=== PATIENT | female | born 1935 | race Caucasian/White ===

== ENCOUNTER 2021-04-22 10:02 | Observation (INO) ==
[2021-04-22 10:10] VITALS: BMI 13.2
--- NOTE | 2021-04-22 11:03 | DR.GENAD ---
HPI Time Seen Time Seen by Provider: 04/22/21 10:59 PCP Primary Care Physician: GABRIELA WALTON , Complaint/Symptoms Chief Complaint Doctors Comments: 85 y/o female brought in for evaluation. Fell last week and fractured her left shoulder. Having decreased po intake, becoming more weak and drowsy. Has been taking hydrocodone, was written for tramadol yes terday. Pt states she feels "lousy". Denies headache, chest or abdominal pain, nausea, vomiting. States she has been moving her bowels and bladder ok. Admits to not drinking much fluids.No report of fever, chills, cough, dyspnea. Denies head injury, headache or neck pain. Has been having left thigh pain, worse with standing. Was seen at ortho clinic yesterday for f/u. Chief Complaint:: PTS FAMILY REPORTS HER HAVING A FALL AND FX HER LEFT SHOULDER LAST WEEK , ( SLING NOTED ) PT IS NOT A SURGICAL CANIDATE EXPRESSED BY THE [facility], PTS DAUGHTER IN LAW STATES " HE HAS NOT BEEN EATING OR DRINKING AND WE THINK SHES DEHYDRATED , ,PT APPERS TO BE DROWSY AND FAIL ) ,, BR Self Treatment fo Chief Complaint: NORCO THIS AM COVID-19 Coronavirus risk:travel/contact w/high risk person: No Has patient experienced Coronavirus symptoms: No Nurses notes reviewed Nurses Notes Review: Yes Source History Provided: Patient and Family Member Mode of Arrival Mode of Arrival: Wheelchair Timing Onset of Chief Complaint: 04/18/21 Came on: Gradually PMH PMH Past Medical History: No Past Surgical History: No Past Surgical History Comment: CONEA Family History History of Family Medical Conditions: Yes Family Medical History: Diabetes Mellitus Family Medical History Comment: CVA, Social History Does patient currently use any type of tobacco product: No Have you used tobacco products in the last 12 months: No Type of Tobacco Use: None Does any household member use tobacco: No Alcohol Use: None Do you use any recreational Drugs:: No Lives With: Family Lives Where: Home Infectious screening In the last 2 months have you had wt loss of >10#?: NO Have you had fever, night sweats or hemotysis?: No Have you traveled outside the country in the last 6 months?: No Isolation: Standard ROS Review of Systems Constitutional: Malaise and Weakness Eyes: No Symptoms Reported ENTM: No Symptoms Reported Respiratoy: No Symptoms Reported Cardiovascular: No Symptoms Reported Gastrointestinal/Abdominal: No Symptoms Reported Genitourinary: No Symptoms Reported Neurological: Weakness Musculoskeletal: Left, Shoulder and Leg Integumentary: No Symptoms Reported Hematologic/Lymphatic: No Symptoms Reported Psychiatric: No Symptoms Reported All Other Systems: Reviewed and Negative PE Vital Signs Vitals: Temperature 96.1 F Pulse Rate 99 Respiratory Rate 22 Blood Pressure 171/73 O2 Sat by Pulse Oximetry 99 General Limitations: No Limitations General Appearance: Alert and In No Apparent Distress Head Head Exam: Atraumatic and Normocephalic Eyes Eye exam: Normal Appearance, PERRL and EOMI ENT ENT Exam: Mucous Membranes Moist Neck Neck Exam: Normal Inspection Respiratory Respiratory Exam: Normal Lung Sounds Bilat; negative Accessory Muscle Use and Respiratory Distress Respiratory Exam: Bilateral: Clear to Auscultation Cardiovascular Cardiovascular Exam: Regular Rate, Normal Rhythm and Normal Heart Sounds Abdominal Exam Abdominal Exam: Normal Inspection, Normal Bowel Sounds and Soft; negative Tenderness Extremities Extremities Exam: Other (+ pain of left shoulder, proximal humerus, with ecchymosis. + pain with ROM of left thigh/hip, worse with ROM.); negative Edema Neurologic Neurological Exam: Alert, Oriented X3 and CN II-XII Intact; negative Motor Sensory Deficit Psychiatric Psychiatric Exam: Normal Affect Skin Skin Exam: Warm and Dry MDM Differential Diagnosis Differential Diagnosis: dehydration, electrolyte abnormalities, medicatin reaction. COURSE Treatment Treatment: 85 y/o presents with increasing weakness, decreased po intake, after falling and fracturing her left shoulder last week. Has been on hydrocodone. W/u initiated. Given IV fluids. 1417 - labs, urine overall acceptable. No signs of dehydration on labs, SG normal. RN's helped pt to bedside commode. Pt very weak, needs assistance. Having pain of left thigh region. X-ray obtained of pelvis/left thigh. + fracture of left hip, subcapital region...! Was planning on observation admission for her weakness, discussed with Dr Lyles (covering as hospitalist), accepted the admission here. He will transfer to a facility with ortho capability for L hip repair, since we don't have ortho here. Family asked as to a good orthopedist. Recommended Dr Blue. He will consult at [facility] after transfer. ROR Labs Reviewed Laboratory Results Reviewed?: Yes Result Diagrams: 04/22/21 11:21 04/22/21 11:21 Laboratory: WBC 10.8 X10^3/uL (3.6-10.0) H 04/22/21 11:21 RBC 3.96 X10^6/uL (3.5-5.4) 04/22/21 11:21 Hgb 12.6 g/dL (12.0-16.0) 04/22/21 11:21 Hct 36.4 % (36.0-47.0) 04/22/21 11:21 MCV 91.9 fL (80.0-100.0) 04/22/21 11:21 MCH 31.8 pg (27.0-34.0) 04/22/21 11:21 MCHC 34.6 g/dL (33.0-35.0) 04/22/21 11:21 RDW 13.8 % (11.6-16.5) 04/22/21 11:21 Plt Count 328 X10^3/uL (150.0-450.0) 04/22/21 11:21 MPV 8.8 fL (7.4-11.0) 04/22/21 11:21 Neut % (Auto) 83.6 % (42.0-75.0) H 04/22/21 11:21 Lymph % (Auto) 8.2 % (21.0-51.0) L 04/22/21 11:21 [place] % (Auto) 7.4 % (0.0-13.0) 04/22/21 11:21 Eos % (Auto) 0.3 % (0.9-2.9) L 04/22/21 11:21 Baso % (Auto) 0.5 % (0.2-1.0) 04/22/21 11:21 Neut # (Auto) 9.0 x10^3/uL (2.2-4.8) H 04/22/21 11:21 Lymph # (Auto) 0.9 X10^3/uL (1.3-2.9) L 04/22/21 11:21 [place] # (Auto) 0.8 x10^3/uL (0.3-0.8) 04/22/21 11:21 Eos # (Auto) 0.0 x10^3/uL (0.0-0.2) 04/22/21 11:21 Baso # (Auto) 0.1 X10^3/uL (0.0-0.1) 04/22/21 11:21 Absolute Nucleated RBC 0.0 /100WBC 04/22/21 11:21 Sodium 140 mmol/L (136-145) 04/22/21 11:21 Corrected Sodium 140 mmol/L (136-145) 04/22/21 11:21 Potassium 4.2 mmol/L (3.5-5.1) 04/22/21 11:21 Chloride 105 mmol/L (98-107) 04/22/21 11:21 Carbon Dioxide 25.5 mmol/L (21-32) 04/22/21 11:21 BUN 46 mg/dL (7-18) H 04/22/21 11:21 Creatinine 0.98 mg/dL (0.55-1.02) 04/22/21 11:21 Est GFR (MDRD) Af Amer > 60 (>60) 04/22/21 11:21 Est GFR (MDRD) Non-Af 57 (>60) L 04/22/21 11:21 Glucose 120 mg/dL (65-99) H 04/22/21 11:21 Calcium 8.4 mg/dL (8.5-10.1) L 04/22/21 11:21 Corrected Calcium 9.4 mg/dL (8.5-10.1) 04/22/21 11:21 Total Bilirubin 0.60 mg/dL (0.2-1.0) 04/22/21 11:21 AST 36 Units/L (15-37) 04/22/21 11:21 ALT 36 Units/L (12-78) 04/22/21 11:21 Alkaline Phosphatase 70 Units/L (46-116) 04/22/21 11:21 Total Protein 6.2 g/dL (6.4-8.2) L 04/22/21 11:21 Albumin 2.7 g/dL (3.4-5.0) L 04/22/21 11:21 Globulin 3.5 g/dL (2.5-4.5) 04/22/21 11:21 Albumin/Globulin Ratio 0.8 Ratio (1.1-2.1) L 04/22/21 11:21 Lipase 126 Units/L (73-393) 04/22/21 11:21 Specimen Type Catherized urine 04/22/21 13:13 Urine Color Yellow (YELLOW) 04/22/21 13:13 Urine Appearance Clear (CLEAR) 04/22/21 13:13 Urine pH 5.0 (5.0 - 8.0) 04/22/21 13:13 Ur Specific [place] 1.015 (1.000-1.030) 04/22/21 13:13 Urine Protein 2+ (NEGATIVE) 04/22/21 13:13 Urine Glucose (UA) Negative (NEGATIVE) 04/22/21 13:13 Urine Ketones 1+ (NEGATIVE) 04/22/21 13:13 Urine Occult Blood 1+ (NEGATIVE) 04/22/21 13:13 Urine Nitrite Negative (NEGATIVE) 04/22/21 13:13 Urine Bilirubin Negative (NEGATIVE) 04/22/21 13:13 Urine Urobilinogen Normal (NORMAL) 04/22/21 13:13 Ur Leukocyte Esterase Negative (NEGATIVE) 04/22/21 13:13 Urine RBC 3-5 /HPF (0-3) A 04/22/21 13:13 Urine WBC 0-2 /HPF (0-5) 04/22/21 13:13 Ur Squamous Epith Cells Rare /HPF (NEGATIVE) 04/22/21 13:13 Urine Bacteria Trace /HPF (NEGATIVE) 04/22/21 13:13 Ur Culture Indicated? No/not indicated 04/22/21 13:13 SARS CoV-2 RNA Rapid CAROLYN Negative (NEGATIVE) 04/22/21 14:43 Other Results Comments: Labs overall acceptable. XRAY XRAY Interpreted by: Both X-ray Results: + fracture of left hip, subcaptal region, with degree of displacement. Opioid Opioid Risk Tool Total: 0 Total Score Risk Category: Low Risk Copyright: Loy ESQUIVEL predicting aberrant behaviors Diagnosis Discharge Problem: Generalized weakness Closed fracture of left hip Qualifiers: Encounter type: initial encounter Qualified Code(s): S72.002A - Fracture of unspecified part of neck of left femur, initial encounter for closed fracture
[2021-04-22] MEDS ORDERED: NS 500 ML IV 500 ML IV ONE (11:07)
[2021-04-22] MEDS ORDERED: NS 1,000 ML IV 1,000 ML ONE (11:12)
[2021-04-22 11:28] LABS: BASOPHILS # (AUTO) 0.1 X10^3/uL (0.0-0.1); BASOPHILS % (AUTO) 0.5 % (0.2-1.0); EOSINOPHILS % (AUTO) 0.3 % (0.9-2.9); HEMATOCRIT 36.4 % (36.0-47.0); HEMOGLOBIN 12.6 g/dL (12.0-16.0); LYMPHOCYTES # (AUTO) 0.9 X10^3/uL (1.3-2.9); LYMPHOCYTES % (AUTO) 8.2 % (21.0-51.0); MEAN CORPUSCULAR HEMOGLOBIN 31.8 pg (27.0-34.0); MEAN CORPUSCULAR HGB CONC 34.6 g/dL (33.0-35.0); MEAN CORPUSCULAR VOLUME 91.9 fL (80.0-100.0); MEAN PLATELET VOLUME 8.8 fL (7.4-11.0); MONOCYTES # (AUTO) 0.8 x10^3/uL (0.3-0.8); MONOCYTES % (AUTO) 7.4 % (0.0-13.0); NEUTROPHILS % (AUTO) 83.6 % (42.0-75.0); RED BLOOD COUNT 3.96 X10^6/uL (3.5-5.4); RED CELL DISTRIBUTION WIDTH 13.8 % (11.6-16.5); WHITE BLOOD COUNT 10.8 X10^3/uL (3.6-10.0)
[2021-04-22 12:03] LABS: ALANINE AMINOTRANSFERASE 36 Units/L (12-78); ALBUMIN 2.7 g/dL (3.4-5.0); ALKALINE PHOSPHATASE 70 Units/L (46-116); ASPARTATE AMINO TRANSFERASE 36 Units/L (15-37); BLOOD UREA NITROGEN 46 mg/dL (7-18); CALCIUM 8.4 mg/dL (8.5-10.1); CARBON DIOXIDE 25.5 mmol/L (21-32); CHLORIDE 105 mmol/L (98-107); COR CA(FOR HYPOALB) 9.4 mg/dL (8.5-10.1); COR NA(FOR HYPERGLY) 140 mmol/L (136-145); CREATININE 0.98 mg/dL (0.55-1.02); LIPASE 126 Units/L (73-393); SODIUM 140 mmol/L (136-145); TOTAL PROTEIN 6.2 g/dL (6.4-8.2); eGFR NON BLACK RACES 57 (>60)
[2021-04-22 13:26] LABS: BILIRUBIN,URINE NEGATIVE (NEGATIVE); BLOOD/HEMOGLOBIN,URINE 1+ (NEGATIVE); GLUCOSE, URINE NEGATIVE (NEGATIVE); KETONES,URINE 1+ (NEGATIVE); LEUKOCYTE ESTERASE ,URINE NEGATIVE (NEGATIVE); NITRITES,URINE NEGATIVE (NEGATIVE); PROTEIN,URINE 2+ (NEGATIVE); UROBILINOGEN,URINE NORMAL (NORMAL)
[2021-04-22 13:31] LABS: APPEARANCE,URINE CLEAR (CLEAR); BACTERIA,URINE TRACE /HPF (NEGATIVE); COLOR,URINE YELLOW (YELLOW); SQUAMOUS EPITHELIAL CELL,UR RARE /HPF (NEGATIVE)
[2021-04-22] MEDS ORDERED: APRESOLINE INJ 20 MG VIAL IVP ONE (14:31)
[2021-04-22] MEDS ORDERED: APRESOLINE INJ 20 MG VIAL ONE (14:39)
--- NOTE | 2021-04-22 14:57 | RAD ---
HISTORYFall, left hip painSTUDYAP pelvisCOMPARISONNoneFINDINGSThe bones are osteopenic. The pelvic bones and SI joints are intact. The left hip joint is intact. No joint erosions are noted. There is a complete subcapital fracture of the left femoral neck with cephalad displacement of the distal fracture fragment.IMPRESSIONComplete subcapital fracture of the left femoral neck with cephalad displacement of the distal fracture fragmentOsteopeniaElectronically signed by: CARLY SINGH (Apr 22, 2021 14:56:21)
--- NOTE | 2021-04-22 14:57 | RAD ---
HISTORYFall, left hip painSTUDYLeft femur two viewsCOMPARISONNoneFINDINGSThere is a complete subcapital fracture of the left femoral neck with cephalad displacement of the distal fracture fragment. The remainder of the femur is intact.IMPRESSIONComplete subcapital fracture left femoral neckElectronically signed by: CARLY SINGH (Apr 22, 2021 14:57:03)
[2021-04-22] MEDS ORDERED: MORPHINE SULFATE INJ 4 MG IVP ONE ×2 (15:21)
[2021-04-22] MEDS ORDERED: MORPHINE SULFATE INJ 4 MG ONE (15:22)
[2021-04-22 17:30] VITALS: BP 137/73
--- NOTE | 2021-04-23 20:42 | DR.H&P ---
<Alissa Royal - Last Filed: 04/23/21 20:37> H&P - History & Physical for Day of: H&P Date: 04/22/21 - Chief Complaint Chief Complaint: Fall - Allergies Allergies/Adverse Reactions: Allergies Allergy/AdvReac Type Severity Reaction Status Date / Time No Known Drug Allergies Allergy Verified 04/22/21 14:58 - History of Present Illness History of Present Illness: Patient is a 85 year old female who is being admitted due to pelvis fracture. Patient brought in by family. Patient alert and oriented but drowsy. Patient fell this past Wednesday and was seen in ER in [place]; diagnosed with broken humerus and followed up with ortho in [place] outpatient earlier this week (not a surgical candidate). Daughter and patiet report patient has not een able to ambulate well since fall. Patient has also not been eating and drinking well and is more drowsy than normal. PMH dementia. Past srugical history corneal surg x 2. No other cocerns at present. - Past Medical History Past Medical History: Dementia - Past Surgical History Additional Surgical History: corneal x 2 - Family History Family Medical History: Diabetes Mellitus - Social History Does patient currently use any type of tobacco product: No Have you used tobacco products in the last 12 months: No Type of Tobacco Use: None Does any household member use tobacco: No Alcohol Use: None Drug Use: None - Medications Home Medications: No Known Drug Allergies Allergy (Verified 04/22/21 14:58) CONTINUE taking the following medications alprazolam 0.25 mg PO BID 04/22/21 [History] hydrocodone-acetaminophen 1 tab PO QID PRN 04/22/21 [History] - Review of Systems Constitutional: See HPI Eyes: See HPI ENT: See HPI Respiratory: See HPI Cardiovascular: See HPI Gastrointestinal: See HPI Genitourinary: See HPI Musculoskeletal: See HPI Skin: See HPI Neurological: See HPI - Physical Exam Vital Signs: Temperature 96.1 F Pulse Rate 102 Respiratory Rate 22 Blood Pressure 137/73 O2 Sat by Pulse Oximetry 98 Oriented: Normal, Time, Person, Place Eyes: Normal Ear: Normal Nose: Normal Throat: Normal Respiratory: Clear Throughout Cardiovascular: Normal : Normal Auscultation: Bowel Sounds: Normal Palpation: Normal Tenderness: Normal Skin: Normal Musculoskeletal: Left, Arm, Leg, Tender (Left humerus fracture-sling noted. Left hip/thigh tenderness) Psychiatric: Normal Mood Description: Flat, Withdrawn Affect: Flat Speech Pattern: Clear, Appropriate - Assessment/Plan (1) Dehydration Status: Acute (2) Closed fracture of left hip Qualifiers: Encounter type: initial encounter Qualified Code(s): S72.002A - Fracture of unspecified part of neck of left femur, initial encounter for closed fracture Status: Acute Plan: Admit. IV fluids. Pain control. See EMR for further orders (3) Generalized weakness Status: Acute <VITOR NELSON - Last Filed: 04/24/21 10:02> H&P - History of Present Illness History of Present Illness: Pt is an 85 y/o WF being admitted for AMS. Pt was found to have a left hip fx by xray immediately after admission. - Medications Home Medications: No Known Drug Allergies Allergy (Verified 04/22/21 14:58) CONTINUE taking the following medications alprazolam 0.25 mg PO BID 04/22/21 [History] hydrocodone-acetaminophen 1 tab PO QID PRN 04/22/21 [History] - Physical Exam Vital Signs: Temperature 96.1 F Pulse Rate 102 Respiratory Rate 22 Blood Pressure 137/73 O2 Sat by Pulse Oximetry 98
--- NOTE | 2021-06-02 00:29 | PCM.DCPLAN ---
Discharge Plan - Discharge Plan Hospital Course: Admit date 04/22/21 Discharge date 04/22/21 DOS 04/22/21 Admit diagnosis (1) Dehydration (2) Closed fracture of left hip (3) Generalized weakness Discharge diagnosis Same Hospital Course Patient is a 85 year old female who is being admitted due to pel vis fracture. Patient brought in by family. Patient alert and oriented but drowsy. Patient fell this past Wednesday and was seen in ER in [place]; diagnosed with broken humerus and followed up with ortho in [place] outpatient earlier this week (not a surgical candidate). Daughter and patient report patient has not been able to ambulate well since fall. Patient has also not been eating and drinking well and is more drowsy than normal. Patient was transferred to tertiary hospital for further ortho eval and intervention if needed. Discharge time > 60 mins Disposition: XF [facility] Condition: Stable Prescriptions: No Action alprazolam [Xanax] 0.25 mg Tablet 0.125 mg PO BID Eliquis 2.5 mg Tablet 2.5 mg PO BID fluconazole [Diflucan] 100 mg Tablet 100 mg PO ONCE Qty: 3 RF: 0 gabapentin 400 mg Capsule 400 mg PO TID hydrocodone-acetaminophen 7.5-325 mg Tablet 1 tab PO Q4H PRN levofloxacin 250 mg Tablet 250 mg PO DAILY lisinopril 10 mg Tablet 10 mg PO DAILY Qty: 30 RF: 0 metoprolol succinate 50 mg Tablet Extended Release 24 Hr 50 mg PO DAILY Qty: 30 RF: 0 - Orders to Discharge Patient Discharge Orders: Discharge by Transfer to Outside Facility (Routine); Ordered 04/22/21 Ordered By: VITOR NELSON - Follow ups/Referrals Follow ups/Referrals: David Alvarez [Primary Care Provider] - 1 WEEK
== END 2021-04-22 17:40 | disposition short-term general hospital (02) ==
LOC: U 10:02 → ER 10:02 → U 17:42
PROVIDERS: ADMIT Internal Medicine; ATTEND Internal Medicine
DX: E86.0 Dehydration; R53.1 Weakness; W18.39XA Other fall on same level, initial encounter; L89.152 Pressure ulcer of sacral region, stage 2; Z20.822 Contact with and (suspected) exposure to COVID-19; S42.92XA Fracture of left shoulder girdle, part unspecified, initial encounter for closed fracture; S72.012A Unspecified intracapsular fracture of left femur, initial encounter for closed fracture

== ENCOUNTER 2021-05-02 07:30 | Inpatient (IN) ==
[2021-05-02] MEDS ORDERED: TYLENOL SUPP 650 MG PR ONE (07:43)
[2021-05-02] MEDS ORDERED: NS 500 ML IV 500 ML IV ONE ×2 (07:44→07:51)
[2021-05-02] MEDS ORDERED: OFIRMEV IV 1000 MG VIAL 1,000 MG/100 ML VIAL IV ONE ×2 (07:51→07:54)
--- NOTE | 2021-05-02 08:06 | RAD ---
HISTORYFever, shortness of breathSTUDYChest AP [id number]/2022FINDINGSHear t size is normal. Nataly are normal. Aorta is calcified. Lung kirby are clear. There is a suggestion of a small left pleural effusion present. Bony thorax is unremarkable with the exception of osteopenia and an impacted fracture of the left humeral neck of uncertain age.IMPRESSIONNo acute infiltratesSuspect small left pleural effusionComminuted impacted fracture of the left humeral neck of uncertain age.Electronically signed by: CARLY SINGH (May 02, 2021 08:05:08)
[2021-05-02 08:09] LABS: LYMPHOCYTES # (AUTO) 0.3 X10^3/uL (1.3-2.9); MEAN PLATELET VOLUME 7.4 fL (7.4-11.0); MONOCYTES # (AUTO) 0.1 x10^3/uL (0.3-0.8)
--- NOTE | 2021-05-02 08:13 | DR.GENAD ---
HPI Time Seen Time Seen by Provider: 05/02/21 07:43 PCP Primary Care Physician: EUSEBIA Complaint/Symptoms Chief Complaint Doctors Comments: PATIENT WAS SENT OVER FROM [place] WITH HYPOXIA AND FEVER AND RECENT START ON MEDICATIONS FOR UTI. Chief Complaint:: HYPOXIA COVID-19 Coronavirus risk:travel/contact w/high risk person: No Has patient experienced Coronavirus symptoms: No Source History Provided: Senior Living Mode of Arrival Mode of Arrival: Stretcher Timing Onset of Chief Complaint: 05/02/21 PMH PMH Past Medical History: Yes Past Medical History: Anxiety, Dementia and Hypertension Past Surgical History: No Surgical History: Ortho Surgery Past Surgical History Comment: FX LEFT FEMUR Family History History of Family Medical Conditions: Yes Family Medical History: Diabetes Mellitus Social History Does patient currently use any type of tobacco product: No Have you used tobacco products in the last 12 months: No Type of Tobacco Use: None Does any household member use tobacco: No Alcohol Use: None Do you use any recreational Drugs:: No Lives With: Other Lives Where: Senior Living Travel Risk Coronavirus risk:travel/contact w/high risk person: No Has patient experienced Coronavirus symptoms: No Infectious screening In the last 2 months have you had wt loss of >10#?: NO Have you had fever, night sweats or hemotysis?: No Have you traveled outside the country in the last 6 months?: No Isolation: Standard ROS Review of Systems Constitutional: Chills and Weakness Eyes: No Symptoms Reported ENTM: No Symptoms Reported Respiratoy: Short of Breath Cardiovascular: No Symptoms Reported Gastrointestinal/Abdominal: No Symptoms Reported Genitourinary: Frequency Neurological: Weakness Musculoskeletal: No Symptoms Reported Integumentary: No Symptoms Reported Hematologic/Lymphatic: No Symptoms Reported Endocrine: No Symptoms Reported Psychiatric: No Symptoms Reported All Other Systems: Reviewed and Negative PE Vital Signs Vitals: Temperature 99.6 F Pulse Rate 107 Respiratory Rate 30 Blood Pressure 92/54 O2 Sat by Pulse Oximetry 100 General General Appearance: In No Apparent Distress and Lethargic Head Head Exam: Normal Inspection Eyes Eye exam: Normal Appearance ENT ENT Exam: Normal Exam External Ear Exam: Normal External Inspection TM/Canal Exam: Bilateral: Normal Nose Exam: Normal Nose Exam Mouth Exam: Normal Inspection Throat Exam: Normal Inspection Neck Neck Exam: Normal Inspection Chest Chest Inspection: Normal Inspection Respiratory Respiratory Exam: Normal Lung Sounds Bilat Respiratory Exam: Bilateral: Clear to Auscultation Cardiovascular Cardiovascular Exam: Normal Rhythm and Tachycardia Abdominal Exam Abdominal Exam: Normal Inspection, Normal Bowel Sounds and Soft Extremities Extremities Exam: Normal Inspection Back Back Exam: Normal Inspection Neurologic Neurological Exam: Alert and Oriented X3 Psychiatric Psychiatric Exam: Normal Affect and Normal Mood Skin Skin Exam: Warm, Dry, Intact and Normal Color MDM Additional Information Findings: HYPOXIA,CHILLS,FEVER Differential Diagnosis Differential Diagnosis: UTI,SEPSIS,VIRAL URTI COURSE Treatment Treatment: PATIENT REQUIRED 1.5 LITERS OF NACL IN ER TO MAINTAIN A BP SYSTOLIC OF 90 AND ABOVE. PATIENT WAS GIVN ROCEPHINE 1 GRAM IN ER FOR UTI AND SEPSIS. LACTIC ACID WAS ELEVATED AND CARDIAC ENZYMES WERE ELEVATED. PATIENT'S PCP DR DURAN WAS CALLED AND HE STATED TO ADMIT PATIENT TO HOSPITAL AND HE WOULD CONTINUE TREATMENT FOR SEPSIS AND ELEVATED CARDIAC ENZYMES. THE PATIENT'S FAMILY WERE NOTIFIED OF THE INTENT AND WERE AGGREABLE TO THE PLAN. SHE IS A DNR AND WILL BE ADMITTED TO ICU FOR FURTHER TREATMENT AND EVALUATION. ROR Labs Reviewed Laboratory Results Reviewed?: Yes (LACTIC ACID WAS 4.6) Result Diagrams: 05/02/21 08:00 05/02/21 08:00 Laboratory: WBC 6.1 X10^3/uL (3.6-10.0) D 05/02/21 08:00 RBC 3.12 X10^6/uL (3.5-5.4) L 05/02/21 08:00 Hgb 10.0 g/dL (12.0-16.0) L 05/02/21 08:00 Hct 28.8 % (36.0-47.0) L 05/02/21 08:00 MCV 92.4 fL (80.0-100.0) 05/02/21 08:00 MCH 32.0 pg (27.0-34.0) 05/02/21 08:00 MCHC 34.7 g/dL (33.0-35.0) 05/02/21 08:00 RDW 13.9 % (11.6-16.5) 05/02/21 08:00 Plt Count 290 X10^3/uL (150.0-450.0) 05/02/21 08:00 Plt Count Comment Adequate (ADEQUATE) 05/02/21 08:00 MPV 7.4 fL (7.4-11.0) 05/02/21 08:00 Neut % (Auto) 93.2 % (42.0-75.0) H 05/02/21 08:00 Lymph % (Auto) 4.9 % (21.0-51.0) L 05/02/21 08:00 [place] % (Auto) 1.4 % (0.0-13.0) 05/02/21 08:00 Eos % (Auto) 0.3 % (0.9-2.9) L 05/02/21 08:00 Baso % (Auto) 0.2 % (0.2-1.0) 05/02/21 08:00 Neut # (Auto) 5.7 x10^3/uL (2.2-4.8) H 05/02/21 08:00 Lymph # (Auto) 0.3 X10^3/uL (1.3-2.9) L 05/02/21 08:00 [place] # (Auto) 0.1 x10^3/uL (0.3-0.8) L 05/02/21 08:00 Eos # (Auto) 0.0 x10^3/uL (0.0-0.2) 05/02/21 08:00 Baso # (Auto) 0.0 X10^3/uL (0.0-0.1) 05/02/21 08:00 Absolute Nucleated RBC 0.1 /100WBC 05/02/21 08:00 Total Counted 100 05/02/21 08:00 Neutrophils % (Manual) 87 % (39-76) H 05/02/21 08:00 Lymphocytes % (Manual) 9 % (13-43) L 05/02/21 08:00 Monocytes % (Manual) 4 % (4-9) 05/02/21 08:00 Plt Morphology Comment Normal (NORMAL) 05/02/21 08:00 RBC Morphology Normal (NORMAL) 05/02/21 08:00 Sample Site Lr 05/02/21 07:49 ABG pH 7.510 (7.35-7.45) H 05/02/21 07:49 ABG pCO2 32.0 mmHg (35.0-45.0) L 05/02/21 07:49 ABG pO2 51.0 mmHg (80.0-100.0) L 05/02/21 07:49 ABG HCO3 25.5 mmol/L (22-26) 05/02/21 07:49 ABG O2 Saturation 89.0 % (90-100) L 05/02/21 07:49 ABG Base Excess 2.9 mmol/L (-2.0-2.0) H 05/02/21 07:49 Jose Test Pos 05/02/21 07:49 A-a Gradient 59.0 mmHg 05/02/21 07:49 FiO2 21.0 05/02/21 07:49 Blood Gas Comments David well cb 05/02/21 07:49 Sodium 143 mmol/L (136-145) 05/02/21 08:00 Corrected Sodium TNP 05/02/21 08:00 Potassium 4.8 mmol/L (3.5-5.1) 05/02/21 08:00 Chloride 104 mmol/L (98-107) 05/02/21 08:00 Carbon Dioxide 25.7 mmol/L (21-32) 05/02/21 08:00 BUN 41 mg/dL (7-18) H 05/02/21 08:00 Creatinine 1.79 mg/dL (0.55-1.02) H 05/02/21 08:00 Est GFR (MDRD) Af Amer 35 (>60) L 05/02/21 08:00 Est GFR (MDRD) Non-Af 29 (>60) L 05/02/21 08:00 Glucose 109 mg/dL (65-99) H 05/02/21 08:00 Lactic Acid 4.6 mmol/L (0.4-2.0) H 05/02/21 08:00 Calcium 8.6 mg/dL (8.5-10.1) 05/02/21 08:00 Corrected Calcium 9.9 mg/dL (8.5-10.1) 05/02/21 08:00 Total Bilirubin 1.10 mg/dL (0.2-1.0) H 05/02/21 08:00 AST 166 Units/L (15-37) H 05/02/21 08:00 ALT 86 Units/L (12-78) H 05/02/21 08:00 Alkaline Phosphatase 219 Units/L (46-116) H 05/02/21 08:00 Creatine Kinase 125 Units/L (26-192) 05/02/21 08:00 CK-MB (CK-2) 1.1 ng/mL (0-4.0) 05/02/21 08:00 CK/CKMB % Calc 0.9 % (<4) 05/02/21 08:00 Troponin I High Sens 152.9 ng/L (4.0-60.0) H* 05/02/21 08:00 Total Protein 5.7 g/dL (6.4-8.2) L 05/02/21 08:00 Albumin 2.4 g/dL (3.4-5.0) L 05/02/21 08:00 Globulin 3.3 g/dL (2.5-4.5) 05/02/21 08:00 Albumin/Globulin Ratio 0.7 Ratio (1.1-2.1) L 05/02/21 08:00 SARS-CoV-2 (PCR) Negative (NEGATIVE) 05/02/21 08:08 Influenza Type A (PCR) Negative (NEGATIVE) 05/02/21 08:08 Influenza Type B (PCR) Negative (NEGATIVE) 05/02/21 08:08 RSV (PCR) Negative (NEGATIVE) 05/02/21 08:08 XRAY XRAY Interpreted by: Radiologist (CHEST XRAY SHOWED SMALL PLEURAL EFUSION) EKG Rhythm: ST Opioid Opioid Risk Tool Age ([place] box if 16-45): No History of Preadolescent Sexual Abuse: No Total: 0 Total Score Risk Category: Low Risk Copyright: Loy ESQUIVEL predicting aberrant behaviors Diagnosis Discharge Problem: Sepsis associated hypotension, Elevation of cardiac enzymes Urinary tract infection Qualifiers: Qualified Code(s): N39.0 - Urinary tract infection, site not specified
[2021-05-02 08:19] LABS: BASOPHILS % (AUTO) 0.2 % (0.2-1.0); EOSINOPHILS % (AUTO) 0.3 % (0.9-2.9); HEMATOCRIT 28.8 % (36.0-47.0); LYMPHOCYTES % (AUTO) 4.9 % (21.0-51.0); MEAN CORPUSCULAR HGB CONC 34.7 g/dL (33.0-35.0); MEAN CORPUSCULAR VOLUME 92.4 fL (80.0-100.0); MONOCYTES % (AUTO) 1.4 % (0.0-13.0); NEUTROPHILS # (AUTO) 5.7 x10^3/uL (2.2-4.8); NEUTROPHILS % (AUTO) 93.2 % (42.0-75.0); RED BLOOD COUNT 3.12 X10^6/uL (3.5-5.4); RED CELL DISTRIBUTION WIDTH 13.9 % (11.6-16.5); WHITE BLOOD COUNT 6.1 X10^3/uL (3.6-10.0)
[2021-05-02] MEDS ORDERED: ROCEPHIN 1 GRAM IV PREMIX 1 G/50 ML IV.SOLN. IV ONE ×2 (08:19→08:23)
[2021-05-02 08:28] LABS: LACTIC ACID 4.6 mmol/L (0.4-2.0)
[2021-05-02 08:35] LABS: ALANINE AMINOTRANSFERASE 86 Units/L (12-78); ALBUMIN 2.4 g/dL (3.4-5.0); ALKALINE PHOSPHATASE 219 Units/L (46-116); ASPARTATE AMINO TRANSFERASE 166 Units/L (15-37); BLOOD UREA NITROGEN 41 mg/dL (7-18); CALCIUM 8.6 mg/dL (8.5-10.1); CARBON DIOXIDE 25.7 mmol/L (21-32); CHLORIDE 104 mmol/L (98-107); CKMB % 0.9 % (<4); COR CA(FOR HYPOALB) 9.9 mg/dL (8.5-10.1); CREATINE KINASE 125 Units/L (26-192); CREATINE KINASE MB 1.1 ng/mL (0-4.0); CREATININE 1.79 mg/dL (0.55-1.02); SODIUM 143 mmol/L (136-145); TOTAL PROTEIN 5.7 g/dL (6.4-8.2); eGFR NON BLACK RACES 29 (>60)
[2021-05-02 08:51] LABS: ABG ALLEN TEST POS; ABG BASE EXCESS 2.9 mmol/L (-2.0-2.0); ABG HCO3 25.5 mmol/L (22-26)
[2021-05-02 08:57] LABS: PLATELET MORPHOLOGY COMMENT NORMAL (NORMAL)
[2021-05-02] MEDS ORDERED: NS 1,000 ML IV 1,000 ML ONE (09:22)
[2021-05-02] MEDS ORDERED: NS 1,000 ML IV 1,000 ML IV ONE (09:24)
[2021-05-02] MEDS ORDERED: NS 1,000 ML IV 1,000 ML IV SCH (10:00)
[2021-05-02] MEDS ORDERED: TYLENOL 325 MG TAB PO PRN (10:03)
[2021-05-02 12:12] VITALS: BMI 16.5
[2021-05-02] MEDS: NS 1,000 ML IV 1,000 ML IV SCH ×2 (12:27→19:00)
[2021-05-02] MEDS: LEVAQUIN PREMIX IV 250 MG 250 MG/50 ML BAG IV SCH (12:50)
[2021-05-02 14:41] LABS: CKMB % 1.7 % (<4); CREATINE KINASE MB 2.1 ng/mL (0-4.0)
--- NOTE | 2021-05-02 17:30 | DR.H&P ---
H&P History & Physical for Day of: H&P Date: 05/02/21 Chief Complaint Chief Complaint: Hypoxia Allergies Allergies Allergy/AdvReac Type Severity Reaction Status Date / Time No Known Drug Allergies Allergy Verified 04/22/21 14:58 History of Present Illness History of Present Illness: This is an 85 year old white female who is a resident at [facility]. [facility] days ago. I was called about The patient yesterday having a temperature of just over 101 degrees Fahrenheit. She was also having rigors that time. A urinalysis was done showed that the patient had a urinary tract infection. Blood cultures x 2 also drawn as well as a CMP, CBC and a chest x-ray. She was started on PO Augmentin and Doxycycline. The chest x-ray yesterday showed only a small minimal left pleural effusion but no infiltrate. This morning the patient was noted to be hypoxic with a O2 sat at the prison in the low 80s. After this she was sent to the emergency department for further work up. Once in the ER she was put on 2 L Nasal cannula and her O2 sat at time went up to the mid-nineties. The pressure was also found to be dehydrated with a GFR are less than 30. Also seen at that time her troponin was elevated in the 150s. I suspect that her her troponin is actually slightly more elevated than hat it would be given her decreased creatinine clearance. The patient was subsequently admitted to the hospital for IV antibiotics and IV hydration. This patient is a DNR for Family. Past Medical History Past Medical History: Anxiety, Dementia and Hypertension Past Surgical History Surgical History: Ortho Surgery Additional Surgical History: corneal x 2 Family History Family Medical History: Diabetes Mellitus, Cancer and Hypertension Social History Does patient currently use any type of tobacco product: No Have you used tobacco products in the last 12 months: No Type of Tobacco Use: None Does any household member use tobacco: No Alcohol Use: None Drug Use: None Medications Home Medications: No Known Drug Allergies Allergy (Verified 04/22/21 14:58) CONTINUE taking the following medications amoxicillin-pot clavulanate 1 tab PO BID 05/02/21 [History] apixaban [Eliquis] 2.5 mg PO BID 05/02/21 [History] doxycycline hyclate 100 mg PO BID 05/02/21 [History] Labs Result Diagrams: 05/02/21 08:00 05/02/21 08:00 Labs: Laboratory WBC 6.1 X10^3/uL (3.6-10.0) D 05/02/21 08:00 RBC 3.12 X10^6/uL (3.5-5.4) L 05/02/21 08:00 Hgb 10.0 g/dL (12.0-16.0) L 05/02/21 08:00 Hct 28.8 % (36.0-47.0) L 05/02/21 08:00 MCV 92.4 fL (80.0-100.0) 05/02/21 08:00 MCH 32.0 pg (27.0-34.0) 05/02/21 08:00 MCHC 34.7 g/dL (33.0-35.0) 05/02/21 08:00 RDW 13.9 % (11.6-16.5) 05/02/21 08:00 Plt Count 290 X10^3/uL (150.0-450.0) 05/02/21 08:00 Plt Count Comment Adequate (ADEQUATE) 05/02/21 08:00 MPV 7.4 fL (7.4-11.0) 05/02/21 08:00 Neut % (Auto) 93.2 % (42.0-75.0) H 05/02/21 08:00 Lymph % (Auto) 4.9 % (21.0-51.0) L 05/02/21 08:00 [place] % (Auto) 1.4 % (0.0-13.0) 05/02/21 08:00 Eos % (Auto) 0.3 % (0.9-2.9) L 05/02/21 08:00 Baso % (Auto) 0.2 % (0.2-1.0) 05/02/21 08:00 Neut # (Auto) 5.7 x10^3/uL (2.2-4.8) H 05/02/21 08:00 Lymph # (Auto) 0.3 X10^3/uL (1.3-2.9) L 05/02/21 08:00 [place] # (Auto) 0.1 x10^3/uL (0.3-0.8) L 05/02/21 08:00 Eos # (Auto) 0.0 x10^3/uL (0.0-0.2) 05/02/21 08:00 Baso # (Auto) 0.0 X10^3/uL (0.0-0.1) 05/02/21 08:00 Absolute Nucleated RBC 0.1 /100WBC 05/02/21 08:00 Total Counted 100 05/02/21 08:00 Neutrophils % (Manual) 87 % (39-76) H 05/02/21 08:00 Lymphocytes % (Manual) 9 % (13-43) L 05/02/21 08:00 Monocytes % (Manual) 4 % (4-9) 05/02/21 08:00 Plt Morphology Comment Normal (NORMAL) 05/02/21 08:00 RBC Morphology Normal (NORMAL) 05/02/21 08:00 Sample Site Lr 05/02/21 07:49 ABG pH 7.510 (7.35-7.45) H 05/02/21 07:49 ABG pCO2 32.0 mmHg (35.0-45.0) L 05/02/21 07:49 ABG pO2 51.0 mmHg (80.0-100.0) L 05/02/21 07:49 ABG HCO3 25.5 mmol/L (22-26) 05/02/21 07:49 ABG O2 Saturation 89.0 % (90-100) L 05/02/21 07:49 ABG Base Excess 2.9 mmol/L (-2.0-2.0) H 05/02/21 07:49 Jose Test Pos 05/02/21 07:49 A-a Gradient 59.0 mmHg 05/02/21 07:49 FiO2 21.0 05/02/21 07:49 Blood Gas Comments David well cb 05/02/21 07:49 Sodium 143 mmol/L (136-145) 05/02/21 08:00 Corrected Sodium TNP 05/02/21 08:00 Potassium 4.8 mmol/L (3.5-5.1) 05/02/21 08:00 Chloride 104 mmol/L (98-107) 05/02/21 08:00 Carbon Dioxide 25.7 mmol/L (21-32) 05/02/21 08:00 BUN 41 mg/dL (7-18) H 05/02/21 08:00 Creatinine 1.79 mg/dL (0.55-1.02) H 05/02/21 08:00 Est GFR (MDRD) Af Amer 35 (>60) L 05/02/21 08:00 Est GFR (MDRD) Non-Af 29 (>60) L 05/02/21 08:00 Glucose 109 mg/dL (65-99) H 05/02/21 08:00 Lactic Acid 3.0 mmol/L (0.4-2.0) H 05/02/21 11:50 Calcium 8.6 mg/dL (8.5-10.1) 05/02/21 08:00 Corrected Calcium 9.9 mg/dL (8.5-10.1) 05/02/21 08:00 Total Bilirubin 1.10 mg/dL (0.2-1.0) H 05/02/21 08:00 AST 166 Units/L (15-37) H 05/02/21 08:00 ALT 86 Units/L (12-78) H 05/02/21 08:00 Alkaline Phosphatase 219 Units/L (46-116) H 05/02/21 08:00 Creatine Kinase 127 Units/L (26-192) 05/02/21 13:56 CK-MB (CK-2) 2.1 ng/mL (0-4.0) 05/02/21 13:56 CK/CKMB % Calc 1.7 % (<4) 05/02/21 13:56 Troponin I High Sens 153.3 ng/L (4.0-60.0) H* 05/02/21 13:56 Total Protein 5.7 g/dL (6.4-8.2) L 05/02/21 08:00 Albumin 2.4 g/dL (3.4-5.0) L 05/02/21 08:00 Globulin 3.3 g/dL (2.5-4.5) 05/02/21 08:00 Albumin/Globulin Ratio 0.7 Ratio (1.1-2.1) L 05/02/21 08:00 SARS-CoV-2 (PCR) Negative (NEGATIVE) 05/02/21 08:08 Influenza Type A (PCR) Negative (NEGATIVE) 05/02/21 08:08 Influenza Type B (PCR) Negative (NEGATIVE) 05/02/21 08:08 RSV (PCR) Negative (NEGATIVE) 05/02/21 08:08 Review of Systems Constitutional: No Symptoms Reported Eyes: No Symptoms Reported ENT: No Symptoms Reported Respiratory: No Symptoms Reported Cardiovascular: No Symptoms Reported Gastrointestinal: No Symptoms Reported Genitourinary: No Symptoms Reported Musculoskeletal: No Symptoms Reported Skin: No Symptoms Reported Neurological: No Symptoms Reported Physical Exam Vital Signs: Temperature 98.7 F Pulse Rate 97 Respiratory Rate 20 Blood Pressure 101/56 O2 Sat by Pulse Oximetry 96 Oriented: Not Oriented and Unable to test Eyes: Normal Ear: Normal Nose: Normal Respiratory: Clear Throughout Cardiovascular: Normal : Normal Auscultation: Bowel Sounds: Normal Palpation: Normal Tenderness: Normal Skin: Decreased [place] Musculoskeletal: Hip Psychiatric: Other (resting at this time. ) Affect: Quiet Assessment/Plan (1) Closed fracture of left hip: Qualifiers: Encounter type: initial encounter Qualified Code(s): S72.002A - Fracture of unspecified part of neck of left femur, initial encounter for closed fracture Status: Acute (2) Generalized weakness: Status: Acute (3) Dehydration: Status: Acute Plan: Normal saline IV at 100 ml per hour (4) Sepsis associated hypotension: Status: Acute Plan: IV Rocephin one gram IV q 12 hours and Levaquin 250 mg IV daily. The patient is a DNR status. (5) Elevation of cardiac enzymes: Status: Acute Plan: What Check serial cardiac enzymes and EKG's. (6) Urinary tract infection: Qualifiers: Qualified Code(s): N39.0 - Urinary tract infection, site not specified Narrative Support Text: The patient's urinalysis/ culture is growing out greater than 100,000 [place] forming units. The Gram stain shows gram-negative rods. Status: Acute Plan: Intravenous Rocephin and Levaquin. Review H&P Reviewed: Yes Patient was examined?: Yes
[2021-05-02 21:01] LABS: CKMB % 2.5 % (<4); CREATINE KINASE MB 3.6 ng/mL (0-4.0)
[2021-05-02] MEDS: ELIQUIS PO SCH (21:15)
[2021-05-02] MEDS: ROCEPHIN 1 GRAM IV PREMIX 1 G/50 ML IV.SOLN. IV SCH (21:15)
[2021-05-02] MEDS: XANAX PO SCH (21:41)
[2021-05-02] MEDS ORDERED: ROCEPHIN 1 GRAM IV PREMIX 1 G/50 ML IV.SOLN. IV SCH (22:00)
[2021-05-03] MEDS: NS 1,000 ML IV 1,000 ML IV SCH ×4 (01:06→22:03)
--- NOTE | 2021-05-03 06:29 | RAD ---
HISTORYSEPSIS, UTISTUDYCHEST, 1 [id number] AND TUBES: NoneHEART/ PULMONARY VASCULATURE: UnchangedLUNGS/ PLEURA: Slight increase in right basilar airspace opacity with obscuration of right hemidiaphragm. Trace effusions are present bilaterally. No pneumothoraxIMPRESSIONSlight increase in right basilar airspace opacities with trace pleural effusions.Electronically signed by: Edmar Robison (May 03, 2021 06:28:28)
[2021-05-03 06:47] LABS: BASOPHILS % (AUTO) 0.1 % (0.2-1.0); EOSINOPHILS # (AUTO) 0.1 x10^3/uL (0.0-0.2); EOSINOPHILS % (AUTO) 0.4 % (0.9-2.9); HEMATOCRIT 24.6 % (36.0-47.0); HEMOGLOBIN 8.2 g/dL (12.0-16.0); LYMPHOCYTES # (AUTO) 0.9 X10^3/uL (1.3-2.9); LYMPHOCYTES % (AUTO) 2.8 % (21.0-51.0); MEAN CORPUSCULAR HEMOGLOBIN 30.6 pg (27.0-34.0); MEAN CORPUSCULAR HGB CONC 33.2 g/dL (33.0-35.0); MEAN CORPUSCULAR VOLUME 92.2 fL (80.0-100.0); MEAN PLATELET VOLUME 8.5 fL (7.4-11.0); MONOCYTES # (AUTO) 1.2 x10^3/uL (0.3-0.8); MONOCYTES % (AUTO) 3.6 % (0.0-13.0); NEUTROPHILS # (AUTO) 30.8 x10^3/uL (2.2-4.8); NEUTROPHILS % (AUTO) 93.1 % (42.0-75.0); RED BLOOD COUNT 2.66 X10^6/uL (3.5-5.4); RED CELL DISTRIBUTION WIDTH 14.4 % (11.6-16.5)
[2021-05-03 06:56] LABS: WHITE BLOOD COUNT 33.1 X10^3/uL (3.6-10.0)
[2021-05-03 07:00] LABS: ALBUMIN 1.8 g/dL (3.4-5.0); CALCIUM 7.5 mg/dL (8.5-10.1); CARBON DIOXIDE 27.5 mmol/L (21-32); COR CA(FOR HYPOALB) 9.3 mg/dL (8.5-10.1); CREATININE 1.39 mg/dL (0.55-1.02)
[2021-05-03 07:50] LABS: BAND NEUTROPHILS % 15 % (0-10); PLATELET MORPHOLOGY COMMENT NORMAL (NORMAL)
[2021-05-03] MEDS: XANAX PO SCH ×2 (09:50→21:00)
[2021-05-03] MEDS: LEVAQUIN PREMIX IV 250 MG 250 MG/50 ML BAG IV SCH (09:50)
[2021-05-03] MEDS: ELIQUIS PO SCH ×2 (09:50→21:00)
[2021-05-03] MEDS: ROCEPHIN 1 GRAM IV PREMIX 1 G/50 ML IV.SOLN. IV SCH ×2 (09:50→21:00)
--- NOTE | 2021-05-03 11:11 | PCM.PROG ---
Progress Note Progress Note for Day of Date of Exam: 05/03/21 Subjective Subjective: This is an 85 year old white female who is a resident at [facility]. She was admitted for Sepsis likely due to urinary tract infection and community acquired pneumonia. This morning patient reports some improvement in her symptoms. She is currently requiring 2L nasal cannula supplemental oxygen. Labs/imaging: Wbc 33, Hgb 8.2, Plt 207, Na 144, K 4.6, Creatinine 1.39, Glucose 113, AST 81, ALT 62, ALKP 162, LA 4.6>2.3, Urine culture revealed pansensitive E. coli. Blood cultures pending. CXR was obtained that revealed: Slight increase in right basilar airspace opacities with trace pleural effusions. She is currently receiving: IVF NS@100ml/h, antibiotics: IV Levaquin 250mg daily, IV Rocephin. Home medications were resumed. Will continue with current treatment plan. Continue to closely monitor and follow up with labs/imaging in the morning. Past Medical Family Social History Past Med/Fam/Surg Hx: No changes since H&P Allergies: Allergies No Known Drug Allergies Allergy (Verified 04/22/21 14:58) Review of Systems ROS: No change since H&P Vital Signs and I&O's Vital Signs: Temperature 98.6 F Pulse Rate 88 Respiratory Rate 27 Blood Pressure 133/65 O2 Sat by Pulse Oximetry 100 Intake and Output: Intake & Output 04/30/21 05/01/21 05/02/21 05/03/21 23:59 23:59 23:59 23:59 Intake Total 1154 / 1154 505 / 505 Balance 1154 / 1154 505 / 505 Physical Exam Oriented: Normal Eyes: Normal Ear: Normal Nose: Normal Respiratory: Diminished Cardiovascular: Normal : Normal Auscultation: Bowel Sounds: Normal Tenderness: Normal Skin: Decreased [place] Musculoskeletal: Hip Psychiatric: Other (resting at this time. ) Affect: Quiet Speech Pattern: Unclear Laboratory and Diagnostics Result Diagrams: 05/03/21 06:04 05/03/21 06:04 Labs: Laboratory WBC 33.1 X10^3/uL (3.6-10.0) H* D 05/03/21 06:04 RBC 2.66 X10^6/uL (3.5-5.4) L 05/03/21 06:04 Hgb 8.2 g/dL (12.0-16.0) L 05/03/21 06:04 Hct 24.6 % (36.0-47.0) L 05/03/21 06:04 MCV 92.2 fL (80.0-100.0) 05/03/21 06:04 MCH 30.6 pg (27.0-34.0) 05/03/21 06:04 MCHC 33.2 g/dL (33.0-35.0) 05/03/21 06:04 RDW 14.4 % (11.6-16.5) 05/03/21 06:04 Plt Count 207 X10^3/uL (150.0-450.0) 05/03/21 06:04 Plt Count Comment Adequate (ADEQUATE) 05/03/21 06:04 MPV 8.5 fL (7.4-11.0) 05/03/21 06:04 Neut % (Auto) 93.1 % (42.0-75.0) H 05/03/21 06:04 Lymph % (Auto) 2.8 % (21.0-51.0) L 05/03/21 06:04 [place] % (Auto) 3.6 % (0.0-13.0) 05/03/21 06:04 Eos % (Auto) 0.4 % (0.9-2.9) L 05/03/21 06:04 Baso % (Auto) 0.1 % (0.2-1.0) L 05/03/21 06:04 Neut # (Auto) 30.8 x10^3/uL (2.2-4.8) H 05/03/21 06:04 Lymph # (Auto) 0.9 X10^3/uL (1.3-2.9) L 05/03/21 06:04 [place] # (Auto) 1.2 x10^3/uL (0.3-0.8) H 05/03/21 06:04 Eos # (Auto) 0.1 x10^3/uL (0.0-0.2) 05/03/21 06:04 Baso # (Auto) 0.0 X10^3/uL (0.0-0.1) 05/03/21 06:04 Absolute Nucleated RBC 0.0 /100WBC 05/03/21 06:04 Total Counted 100 05/03/21 06:04 Neutrophils % (Manual) 80 % (39-76) H 05/03/21 06:04 Band Neutrophils % 15 % (0-10) H 05/03/21 06:04 Lymphocytes % (Manual) 4 % (13-43) L 05/03/21 06:04 Monocytes % (Manual) 1 % (4-9) L 05/03/21 06:04 Plt Morphology Comment Normal (NORMAL) 05/03/21 06:04 RBC Morphology Normal (NORMAL) 05/03/21 06:04 Sample Site Lr 05/02/21 07:49 ABG pH 7.510 (7.35-7.45) H 05/02/21 07:49 ABG pCO2 32.0 mmHg (35.0-45.0) L 05/02/21 07:49 ABG pO2 51.0 mmHg (80.0-100.0) L 05/02/21 07:49 ABG HCO3 25.5 mmol/L (22-26) 05/02/21 07:49 ABG O2 Saturation 89.0 % (90-100) L 05/02/21 07:49 ABG Base Excess 2.9 mmol/L (-2.0-2.0) H 05/02/21 07:49 Jose Test Pos 05/02/21 07:49 A-a Gradient 59.0 mmHg 05/02/21 07:49 FiO2 21.0 05/02/21 07:49 Blood Gas Comments David well cb 05/02/21 07:49 Sodium 144 mmol/L (136-145) 05/03/21 06:04 Corrected Sodium 144 mmol/L (136-145) 05/03/21 06:04 Potassium 4.6 mmol/L (3.5-5.1) 05/03/21 06:04 Chloride 109 mmol/L (98-107) H 05/03/21 06:04 Carbon Dioxide 27.5 mmol/L (21-32) 05/03/21 06:04 BUN 52 mg/dL (7-18) H 05/03/21 06:04 Creatinine 1.39 mg/dL (0.55-1.02) H 05/03/21 06:04 Est GFR (MDRD) Af Amer 46 (>60) L 05/03/21 06:04 Est GFR (MDRD) Non-Af 38 (>60) L 05/03/21 06:04 Glucose 113 mg/dL (65-99) H 05/03/21 06:04 Lactic Acid 2.3 mmol/L (0.4-2.0) H 05/02/21 18:00 Calcium 7.5 mg/dL (8.5-10.1) L 05/03/21 06:04 Corrected Calcium 9.3 mg/dL (8.5-10.1) 05/03/21 06:04 Total Bilirubin 0.50 mg/dL (0.2-1.0) 05/03/21 06:04 AST 81 Units/L (15-37) H 05/03/21 06:04 ALT 62 Units/L (12-78) 05/03/21 06:04 Alkaline Phosphatase 162 Units/L (46-116) H 05/03/21 06:04 Creatine Kinase 143 Units/L (26-192) 05/02/21 20:26 CK-MB (CK-2) 3.6 ng/mL (0-4.0) 05/02/21 20:26 CK/CKMB % Calc 2.5 % (<4) 05/02/21 20:26 Troponin I High Sens 149.4 ng/L (4.0-60.0) H* 05/02/21 20:26 Total Protein 5.0 g/dL (6.4-8.2) L 05/03/21 06:04 Albumin 1.8 g/dL (3.4-5.0) L 05/03/21 06:04 Globulin 3.2 g/dL (2.5-4.5) 05/03/21 06:04 Albumin/Globulin Ratio 0.6 Ratio (1.1-2.1) L 05/03/21 06:04 SARS-CoV-2 (PCR) Negative (NEGATIVE) 05/02/21 08:08 Influenza Type A (PCR) Negative (NEGATIVE) 05/02/21 08:08 Influenza Type B (PCR) Negative (NEGATIVE) 05/02/21 08:08 RSV (PCR) Negative (NEGATIVE) 05/02/21 08:08 Plan (1) Closed fracture of left hip: Status: Acute Qualifiers: Encounter type: initial encounter Qualified Code(s): S72.002A - Fracture of unspecified part of neck of left femur, initial encounter for closed fracture (2) Generalized weakness: Status: Acute (3) Dehydration: Status: Acute Plan: Normal saline IV at 100 ml per hour (4) Sepsis associated hypotension: Status: Acute Plan: IV Rocephin one gram IV q 12 hours and Levaquin 250 mg IV daily. The patient is a DNR status. (5) Elevation of cardiac enzymes: Status: Acute Plan: What Check serial cardiac enzymes and EKG's. (6) Urinary tract infection: Status: Acute Qualifiers: Qualified Code(s): N39.0 - Urinary tract infection, site not specified Plan: Intravenous Rocephin and Levaquin.
[2021-05-03 12:36] LABS: BILIRUBIN,URINE NEGATIVE (NEGATIVE); BLOOD/HEMOGLOBIN,URINE 5+ (NEGATIVE); GLUCOSE, URINE NEGATIVE (NEGATIVE); KETONES,URINE NEGATIVE (NEGATIVE); LEUKOCYTE ESTERASE ,URINE 3+ (NEGATIVE); NITRITES,URINE POSITIVE (NEGATIVE); PROTEIN,URINE 3+ (NEGATIVE); UROBILINOGEN,URINE NORMAL (NORMAL)
[2021-05-03 12:41] LABS: APPEARANCE,URINE CLOUDY (CLEAR); COLOR,URINE YELLOW (YELLOW)
[2021-05-03 12:42] LABS: RBC,URINE 20-30 /HPF (0-3)
[2021-05-03 12:43] LABS: BACTERIA,URINE TRACE /HPF (NEGATIVE); SQUAMOUS EPITHELIAL CELL,UR MANY /HPF (NEGATIVE)
[2021-05-03] MEDS: XOPENEX 1.25 MG/3 ML NEBULE NEB SCH ×2 (14:00→20:24)
[2021-05-04] MEDS: NS 1,000 ML IV 1,000 ML IV SCH ×5 (03:00→19:06)
[2021-05-04] MEDS: XOPENEX 1.25 MG/3 ML NEBULE NEB SCH ×3 (05:05→21:10)
[2021-05-04 06:22] LABS: BASOPHILS # (AUTO) 0.1 X10^3/uL (0.0-0.1); BASOPHILS % (AUTO) 0.3 % (0.2-1.0); EOSINOPHILS # (AUTO) 0.2 x10^3/uL (0.0-0.2); EOSINOPHILS % (AUTO) 0.8 % (0.9-2.9); HEMATOCRIT 24.3 % (36.0-47.0); HEMOGLOBIN 8.1 g/dL (12.0-16.0); LYMPHOCYTES # (AUTO) 1.2 X10^3/uL (1.3-2.9); MEAN CORPUSCULAR HEMOGLOBIN 30.9 pg (27.0-34.0); MEAN CORPUSCULAR HGB CONC 33.1 g/dL (33.0-35.0); MEAN CORPUSCULAR VOLUME 93.2 fL (80.0-100.0); MEAN PLATELET VOLUME 8.8 fL (7.4-11.0); MONOCYTES # (AUTO) 0.8 x10^3/uL (0.3-0.8); MONOCYTES % (AUTO) 3.1 % (0.0-13.0); NEUTROPHILS # (AUTO) 22.4 x10^3/uL (2.2-4.8); NEUTROPHILS % (AUTO) 90.8 % (42.0-75.0); RED BLOOD COUNT 2.61 X10^6/uL (3.5-5.4); WHITE BLOOD COUNT 24.7 X10^3/uL (3.6-10.0)
--- NOTE | 2021-05-04 06:26 | RAD ---
HISTORYPNEUMONIASTUDYCHEST, 1 [id number]/2022FINDINGSLINES AND TUBES: NoneHEART/ PULMONARY VASCULATURE: UnchangedLUNGS/ PLEURA: Bibasilar pleural parenchymal opacities appears slightly increased from prior study. No pneumothoraxIMPRESSIONSlight increase in bibasilar pleural parenchymal disease.Electronically signed by: Edmar Robison (May 04, 2021 06:25:19)
[2021-05-04 06:29] LABS: ALANINE AMINOTRANSFERASE 43 Units/L (12-78); ALBUMIN 1.6 g/dL (3.4-5.0); ALKALINE PHOSPHATASE 146 Units/L (46-116); ASPARTATE AMINO TRANSFERASE 42 Units/L (15-37); BLOOD UREA NITROGEN 51 mg/dL (7-18); CALCIUM 7.9 mg/dL (8.5-10.1); CARBON DIOXIDE 25.1 mmol/L (21-32); CHLORIDE 110 mmol/L (98-107); COR CA(FOR HYPOALB) 9.8 mg/dL (8.5-10.1); CREATININE 0.84 mg/dL (0.55-1.02); SODIUM 142 mmol/L (136-145); TOTAL PROTEIN 4.7 g/dL (6.4-8.2); eGFR NON BLACK RACES > 60 (>60)
[2021-05-04 06:50] LABS: BAND NEUTROPHILS % 12 % (0-10); PLATELET MORPHOLOGY COMMENT NORMAL (NORMAL)
[2021-05-04] MEDS: XANAX PO SCH ×2 (09:45→20:14)
[2021-05-04] MEDS: ELIQUIS PO SCH ×2 (09:45→20:14)
[2021-05-04] MEDS: LEVAQUIN PREMIX IV 250 MG 250 MG/50 ML BAG IV SCH (09:45)
[2021-05-04] MEDS: ROCEPHIN 1 GRAM IV PREMIX 1 G/50 ML IV.SOLN. IV SCH ×2 (09:46→21:30)
--- NOTE | 2021-05-04 10:39 | PCM.PROG ---
Progress Note Progress Note for Day of Date of Exam: 05/04/21 Subjective Subjective: This is an 85 year old white female who is a resident at [facility]. She was admitted for Sepsis likely due to urinary tract infection and community acquired pneumonia. This morning patient appears to have made improvement in her symptoms compared to yesterday. She is currently requiring 2L nasal cannula supplemental oxygen. Labs/imaging: Wbc 33>24, Hgb 8.1, Plt 183, Na 142, K 4.1, Creatinine 0.84, Glucose 104, Urine culture revealed pansensitive E. coli. Blood cultures pending. CXR was obtained that revealed: Slight increase in bibasilar pleural parenchymal disease. She is currently receiving: IVF NS@100ml/h, antibiotics: IV Levaquin 250mg daily, IV Rocephin. Home medications were resumed. Otherwise, will continue with current treatment plan. Continue to closely monitor and follow up with labs/imaging in the morning. Past Medical Family Social History Past Med/Fam/Surg Hx: No changes since H&P Allergies: Allergies No Known Drug Allergies Allergy (Verified 04/22/21 14:58) Review of Systems ROS: No change since H&P Vital Signs and I&O's Vital Signs: Temperature 97.9 F Pulse Rate 90 Respiratory Rate 26 Blood Pressure 142/65 O2 Sat by Pulse Oximetry 100 Intake and Output: Intake & Output 05/01/21 05/02/21 05/03/21 05/05/21 23:59 23:59 23:59 00:59 Intake Total 1154 / 1154 2650 / 2650 1050 / 1050 Output Total 1700 / 1700 300 / 300 Balance 1154 / 1154 950 / 950 750 / 750 Physical Exam Oriented: Normal Eyes: Normal Ear: Normal Nose: Normal Respiratory: Diminished Cardiovascular: Normal : Normal Auscultation: Bowel Sounds: Normal Tenderness: Normal Skin: Decreased [place] Musculoskeletal: Hip Psychiatric: Other (resting at this time. ) Affect: Quiet Speech Pattern: Unclear Laboratory and Diagnostics Result Diagrams: 05/04/21 05:46 05/04/21 05:46 Labs: 05/03/21 12:20 Urine,Clean Catch Urine Culture - Preliminary Laboratory WBC 24.7 X10^3/uL (3.6-10.0) H D 05/04/21 05:46 RBC 2.61 X10^6/uL (3.5-5.4) L 05/04/21 05:46 Hgb 8.1 g/dL (12.0-16.0) L 05/04/21 05:46 Hct 24.3 % (36.0-47.0) L 05/04/21 05:46 MCV 93.2 fL (80.0-100.0) 05/04/21 05:46 MCH 30.9 pg (27.0-34.0) 05/04/21 05:46 MCHC 33.1 g/dL (33.0-35.0) 05/04/21 05:46 RDW 14.0 % (11.6-16.5) 05/04/21 05:46 Plt Count 183 X10^3/uL (150.0-450.0) 05/04/21 05:46 Plt Count Comment Adequate (ADEQUATE) 05/04/21 05:46 MPV 8.8 fL (7.4-11.0) 05/04/21 05:46 Neut % (Auto) 90.8 % (42.0-75.0) H 05/04/21 05:46 Lymph % (Auto) 5.0 % (21.0-51.0) L 05/04/21 05:46 [place] % (Auto) 3.1 % (0.0-13.0) 05/04/21 05:46 Eos % (Auto) 0.8 % (0.9-2.9) L 05/04/21 05:46 Baso % (Auto) 0.3 % (0.2-1.0) 05/04/21 05:46 Neut # (Auto) 22.4 x10^3/uL (2.2-4.8) H 05/04/21 05:46 Lymph # (Auto) 1.2 X10^3/uL (1.3-2.9) L 05/04/21 05:46 [place] # (Auto) 0.8 x10^3/uL (0.3-0.8) 05/04/21 05:46 Eos # (Auto) 0.2 x10^3/uL (0.0-0.2) 05/04/21 05:46 Baso # (Auto) 0.1 X10^3/uL (0.0-0.1) 05/04/21 05:46 Absolute Nucleated RBC 0.0 /100WBC 05/04/21 05:46 Total Counted 100 05/04/21 05:46 Neutrophils % (Manual) 85 % (39-76) H 05/04/21 05:46 Band Neutrophils % 12 % (0-10) H 05/04/21 05:46 Lymphocytes % (Manual) 3 % (13-43) L 05/04/21 05:46 Monocytes % (Manual) 1 % (4-9) L 05/03/21 06:04 Plt Morphology Comment Normal (NORMAL) 05/04/21 05:46 RBC Morphology Normal (NORMAL) 05/04/21 05:46 Sample Site Lr 05/02/21 07:49 ABG pH 7.510 (7.35-7.45) H 05/02/21 07:49 ABG pCO2 32.0 mmHg (35.0-45.0) L 05/02/21 07:49 ABG pO2 51.0 mmHg (80.0-100.0) L 05/02/21 07:49 ABG HCO3 25.5 mmol/L (22-26) 05/02/21 07:49 ABG O2 Saturation 89.0 % (90-100) L 05/02/21 07:49 ABG Base Excess 2.9 mmol/L (-2.0-2.0) H 05/02/21 07:49 Jose Test Pos 05/02/21 07:49 A-a Gradient 59.0 mmHg 05/02/21 07:49 FiO2 21.0 05/02/21 07:49 Blood Gas Comments David well cb 05/02/21 07:49 Sodium 142 mmol/L (136-145) 05/04/21 05:46 Corrected Sodium TNP 05/04/21 05:46 Potassium 4.1 mmol/L (3.5-5.1) 05/04/21 05:46 Chloride 110 mmol/L (98-107) H 05/04/21 05:46 Carbon Dioxide 25.1 mmol/L (21-32) 05/04/21 05:46 BUN 51 mg/dL (7-18) H 05/04/21 05:46 Creatinine 0.84 mg/dL (0.55-1.02) 05/04/21 05:46 Est GFR (MDRD) Af Amer > 60 (>60) 05/04/21 05:46 Est GFR (MDRD) Non-Af > 60 (>60) 05/04/21 05:46 Glucose 104 mg/dL (65-99) H 05/04/21 05:46 Lactic Acid 2.3 mmol/L (0.4-2.0) H 05/02/21 18:00 Calcium 7.9 mg/dL (8.5-10.1) L 05/04/21 05:46 Corrected Calcium 9.8 mg/dL (8.5-10.1) 05/04/21 05:46 Total Bilirubin 0.40 mg/dL (0.2-1.0) 05/04/21 05:46 AST 42 Units/L (15-37) H 05/04/21 05:46 ALT 43 Units/L (12-78) 05/04/21 05:46 Alkaline Phosphatase 146 Units/L (46-116) H 05/04/21 05:46 Creatine Kinase 143 Units/L (26-192) 05/02/21 20:26 CK-MB (CK-2) 3.6 ng/mL (0-4.0) 05/02/21 20:26 CK/CKMB % Calc 2.5 % (<4) 05/02/21 20:26 Troponin I High Sens 149.4 ng/L (4.0-60.0) H* 05/02/21 20:26 Total Protein 4.7 g/dL (6.4-8.2) L 05/04/21 05:46 Albumin 1.6 g/dL (3.4-5.0) L 05/04/21 05:46 Globulin 3.1 g/dL (2.5-4.5) 05/04/21 05:46 Albumin/Globulin Ratio 0.5 Ratio (1.1-2.1) L 05/04/21 05:46 Specimen Type Clean catch urine 05/03/21 12:20 Urine Color Yellow (YELLOW) 05/03/21 12:20 Urine Appearance Cloudy (CLEAR) 05/03/21 12:20 Urine pH 8.0 (5.0 - 8.0) 05/03/21 12:20 Ur Specific [place] 1.010 (1.000-1.030) 05/03/21 12:20 Urine Protein 3+ (NEGATIVE) 05/03/21 12:20 Urine Glucose (UA) Negative (NEGATIVE) 05/03/21 12:20 Urine Ketones Negative (NEGATIVE) 05/03/21 12:20 Urine Occult Blood 5+ (NEGATIVE) 05/03/21 12:20 Urine Nitrite Positive (NEGATIVE) 05/03/21 12:20 Urine Bilirubin Negative (NEGATIVE) 05/03/21 12:20 Urine Urobilinogen Normal (NORMAL) 05/03/21 12:20 Ur Leukocyte Esterase 3+ (NEGATIVE) 05/03/21 12:20 Urine RBC 20-30 /HPF (0-3) A 05/03/21 12:20 Urine WBC 30-50 /HPF (0-5) A 05/03/21 12:20 Ur Squamous Epith Cells Many /HPF (NEGATIVE) 05/03/21 12:20 Urine Bacteria Trace /HPF (NEGATIVE) 05/03/21 12:20 Ur Culture Indicated? Yes/culture set up 05/03/21 12:20 SARS-CoV-2 (PCR) Negative (NEGATIVE) 05/02/21 08:08 Influenza Type A (PCR) Negative (NEGATIVE) 05/02/21 08:08 Influenza Type B (PCR) Negative (NEGATIVE) 05/02/21 08:08 RSV (PCR) Negative (NEGATIVE) 05/02/21 08:08 Plan (1) Closed fracture of left hip: Status: Acute Qualifiers: Encounter type: initial encounter Qualified Code(s): S72.002A - Fracture of unspecified part of neck of left femur, initial encounter for closed fracture (2) Generalized weakness: Status: Acute (3) Dehydration: Status: Acute Plan: Normal saline IV at 100 ml per hour (4) Sepsis associated hypotension: Status: Acute Plan: IV Rocephin one gram IV q 12 hours and Levaquin 250 mg IV daily. The patient is a DNR status. (5) Elevation of cardiac enzymes: Status: Acute Plan: What Check serial cardiac enzymes and EKG's. (6) Urinary tract infection: Status: Acute Qualifiers: Qualified Code(s): N39.0 - Urinary tract infection, site not specified Plan: Intravenous Rocephin and Levaquin.
[2021-05-04] MEDS: TYLENOL 325 MG TAB PO PRN (16:38)
[2021-05-05] MEDS: NS 1,000 ML IV 1,000 ML IV SCH ×3 (03:35→14:45)
[2021-05-05] MEDS: TYLENOL 325 MG TAB PO PRN (04:41)
[2021-05-05] MEDS: XOPENEX 1.25 MG/3 ML NEBULE NEB SCH ×3 (05:00→20:20)
[2021-05-05 06:06] LABS: HEMOGLOBIN 8.4 g/dL (12.0-16.0); RED BLOOD COUNT 2.72 X10^6/uL (3.5-5.4); RED CELL DISTRIBUTION WIDTH 14.3 % (11.6-16.5)
[2021-05-05 06:10] LABS: BASOPHILS % (AUTO) 0.2 % (0.2-1.0); EOSINOPHILS # (AUTO) 0.1 x10^3/uL (0.0-0.2); EOSINOPHILS % (AUTO) 0.5 % (0.9-2.9); HEMATOCRIT 25.5 % (36.0-47.0); LYMPHOCYTES # (AUTO) 1.1 X10^3/uL (1.3-2.9); LYMPHOCYTES % (AUTO) 6.6 % (21.0-51.0); MEAN CORPUSCULAR HGB CONC 33.1 g/dL (33.0-35.0); MEAN CORPUSCULAR VOLUME 93.8 fL (80.0-100.0); MEAN PLATELET VOLUME 8.5 fL (7.4-11.0); MONOCYTES # (AUTO) 0.5 x10^3/uL (0.3-0.8); MONOCYTES % (AUTO) 3.3 % (0.0-13.0); NEUTROPHILS # (AUTO) 14.9 x10^3/uL (2.2-4.8); NEUTROPHILS % (AUTO) 89.4 % (42.0-75.0)
[2021-05-05 06:17] LABS: ALANINE AMINOTRANSFERASE 33 Units/L (12-78); ALBUMIN 1.7 g/dL (3.4-5.0); ALKALINE PHOSPHATASE 118 Units/L (46-116); ASPARTATE AMINO TRANSFERASE 24 Units/L (15-37); BLOOD UREA NITROGEN 31 mg/dL (7-18); CALCIUM 7.9 mg/dL (8.5-10.1); CARBON DIOXIDE 23.8 mmol/L (21-32); CHLORIDE 111 mmol/L (98-107); COR CA(FOR HYPOALB) 9.7 mg/dL (8.5-10.1); CREATININE 0.59 mg/dL (0.55-1.02); SODIUM 142 mmol/L (136-145); TOTAL PROTEIN 4.8 g/dL (6.4-8.2); WHITE BLOOD COUNT 16.7 X10^3/uL (3.6-10.0); eGFR NON BLACK RACES > 60 (>60)
[2021-05-05] MEDS: ELIQUIS PO SCH ×2 (09:30→21:30)
[2021-05-05] MEDS: XANAX PO SCH ×2 (09:32→21:30)
[2021-05-05] MEDS: LEVAQUIN PREMIX IV 250 MG 250 MG/50 ML BAG IV SCH (09:33)
[2021-05-05] MEDS: ROCEPHIN 1 GRAM IV PREMIX 1 G/50 ML IV.SOLN. IV SCH ×2 (12:06→21:30)
--- NOTE | 2021-05-05 12:17 | PCM.PROG ---
Progress Note Progress Note for Day of Date of Exam: 05/05/21 Subjective Subjective: This is an 85 year old white female who is a resident at [facility]. She was admitted for Sepsis likely due to urinary tract infection and community acquired pneumonia. This morning patient appears to have made improvement in her symptoms compared to yesterday. She is currently requiring 2L nasal cannula supplemental oxygen. The patient's oxygen saturation this morning is 100% on 2 L O2 per nasal cannula . Labs/imaging: Wbc 16.7 , Hgb 8.4, Plt 201 , Na 142, K 3.9 , Creatinine 0.59 , Glucose 91 , Urine culture revealed pansensitive E. coli. Blood cultures pending. CXR was obtained that revealed: Slight increase in bibasilar pleural parenchymal disease. She is currently rec eiving: IVF NS@100ml/h, antibiotics: IV Levaquin 250mg daily, IV Rocephin. Home medications were resumed. Otherwise, will continue with current treatment plan. Continue to closely monitor and follow up with labs/imaging in the morning. The patient is doing much better since admission 3 days ago. I will continue her current treatment and plan on discharging her back to the half-way in the next 1-3 days. Past Medical Family Social History Past Med/Fam/Surg Hx: No changes since H&P Allergies: Allergies No Known Drug Allergies Allergy (Verified 04/22/21 14:58) Review of Systems ROS: No change since H&P Vital Signs and I&O's Vital Signs: Temperature 98.1 F Pulse Rate 79 Respiratory Rate 21 Blood Pressure 152/63 O2 Sat by Pulse Oximetry 100 Intake and Output: Intake & Output 05/03/21 05/04/21 05/05/21 05/06/21 10:59 11:59 11:59 11:59 Intake Total 2567 / 2567 Output Total 1300 / 1300 Balance 1267 / 1267 Physical Exam Oriented: Normal Eyes: Normal Ear: Normal Nose: Normal Respiratory: Diminished Cardiovascular: Normal : Normal Auscultation: Bowel Sounds: Normal Tenderness: Normal Skin: Decreased Turgur Musculoskeletal: Hip Psychiatric: Other (resting at this time. ) Affect: Quiet Speech Pattern: Clear Laboratory and Diagnostics Result Diagrams: 05/05/21 06:00 05/05/21 06:00 Labs: 05/03/21 12:20 Urine,Clean Catch Urine Culture - Final Escherichia Coli Laboratory WBC 16.7 X10^3/uL (3.6-10.0) H D 05/05/21 06:00 RBC 2.72 X10^6/uL (3.5-5.4) L 05/05/21 06:00 Hgb 8.4 g/dL (12.0-16.0) L 05/05/21 06:00 Hct 25.5 % (36.0-47.0) L 05/05/21 06:00 MCV 93.8 fL (80.0-100.0) 05/05/21 06:00 MCH 31.0 pg (27.0-34.0) 05/05/21 06:00 MCHC 33.1 g/dL (33.0-35.0) 05/05/21 06:00 RDW 14.3 % (11.6-16.5) 05/05/21 06:00 Plt Count 201 X10^3/uL (150.0-450.0) 05/05/21 06:00 Plt Count Comment Adequate (ADEQUATE) 05/04/21 05:46 MPV 8.5 fL (7.4-11.0) 05/05/21 06:00 Neut % (Auto) 89.4 % (42.0-75.0) H 05/05/21 06:00 Lymph % (Auto) 6.6 % (21.0-51.0) L 05/05/21 06:00 [place] % (Auto) 3.3 % (0.0-13.0) 05/05/21 06:00 Eos % (Auto) 0.5 % (0.9-2.9) L 05/05/21 06:00 Baso % (Auto) 0.2 % (0.2-1.0) 05/05/21 06:00 Neut # (Auto) 14.9 x10^3/uL (2.2-4.8) H 05/05/21 06:00 Lymph # (Auto) 1.1 X10^3/uL (1.3-2.9) L 05/05/21 06:00 [place] # (Auto) 0.5 x10^3/uL (0.3-0.8) 05/05/21 06:00 Eos # (Auto) 0.1 x10^3/uL (0.0-0.2) 05/05/21 06:00 Baso # (Auto) 0.0 X10^3/uL (0.0-0.1) 05/05/21 06:00 Absolute Nucleated RBC 0.0 /100WBC 05/05/21 06:00 Total Counted 100 05/04/21 05:46 Neutrophils % (Manual) 85 % (39-76) H 05/04/21 05:46 Band Neutrophils % 12 % (0-10) H 05/04/21 05:46 Lymphocytes % (Manual) 3 % (13-43) L 05/04/21 05:46 Monocytes % (Manual) 1 % (4-9) L 05/03/21 06:04 Plt Morphology Comment Normal (NORMAL) 05/04/21 05:46 RBC Morphology Normal (NORMAL) 05/04/21 05:46 Sample Site Lr 05/02/21 07:49 ABG pH 7.510 (7.35-7.45) H 05/02/21 07:49 ABG pCO2 32.0 mmHg (35.0-45.0) L 05/02/21 07:49 ABG pO2 51.0 mmHg (80.0-100.0) L 05/02/21 07:49 ABG HCO3 25.5 mmol/L (22-26) 05/02/21 07:49 ABG O2 Saturation 89.0 % (90-100) L 05/02/21 07:49 ABG Base Excess 2.9 mmol/L (-2.0-2.0) H 05/02/21 07:49 Jose Test Pos 05/02/21 07:49 A-a Gradient 59.0 mmHg 05/02/21 07:49 FiO2 21.0 05/02/21 07:49 Blood Gas Comments David well cb 05/02/21 07:49 Sodium 142 mmol/L (136-145) 05/05/21 06:00 Corrected Sodium TNP 05/05/21 06:00 Potassium 3.9 mmol/L (3.5-5.1) 05/05/21 06:00 Chloride 111 mmol/L (98-107) H 05/05/21 06:00 Carbon Dioxide 23.8 mmol/L (21-32) 05/05/21 06:00 BUN 31 mg/dL (7-18) H 05/05/21 06:00 Creatinine 0.59 mg/dL (0.55-1.02) 05/05/21 06:00 Est GFR (MDRD) Af Amer > 60 (>60) 05/05/21 06:00 Est GFR (MDRD) Non-Af > 60 (>60) 05/05/21 06:00 Glucose 91 mg/dL (65-99) 05/05/21 06:00 Lactic Acid 2.3 mmol/L (0.4-2.0) H 05/02/21 18:00 Calcium 7.9 mg/dL (8.5-10.1) L 05/05/21 06:00 Corrected Calcium 9.7 mg/dL (8.5-10.1) 05/05/21 06:00 Total Bilirubin 0.50 mg/dL (0.2-1.0) 05/05/21 06:00 AST 24 Units/L (15-37) 05/05/21 06:00 ALT 33 Units/L (12-78) 05/05/21 06:00 Alkaline Phosphatase 118 Units/L (46-116) H 05/05/21 06:00 Creatine Kinase 143 Units/L (26-192) 05/02/21 20:26 CK-MB (CK-2) 3.6 ng/mL (0-4.0) 05/02/21 20:26 CK/CKMB % Calc 2.5 % (<4) 05/02/21 20:26 Troponin I High Sens 149.4 ng/L (4.0-60.0) H* 05/02/21 20:26 Total Protein 4.8 g/dL (6.4-8.2) L 05/05/21 06:00 Albumin 1.7 g/dL (3.4-5.0) L 05/05/21 06:00 Globulin 3.1 g/dL (2.5-4.5) 05/05/21 06:00 Albumin/Globulin Ratio 0.5 Ratio (1.1-2.1) L 05/05/21 06:00 Specimen Type Clean catch urine 05/03/21 12:20 Urine Color Yellow (YELLOW) 05/03/21 12:20 Urine Appearance Cloudy (CLEAR) 05/03/21 12:20 Urine pH 8.0 (5.0 - 8.0) 05/03/21 12:20 Ur Specific [place] 1.010 (1.000-1.030) 05/03/21 12:20 Urine Protein 3+ (NEGATIVE) 05/03/21 12:20 Urine Glucose (UA) Negative (NEGATIVE) 05/03/21 12:20 Urine Ketones Negative (NEGATIVE) 05/03/21 12:20 Urine Occult Blood 5+ (NEGATIVE) 05/03/21 12:20 Urine Nitrite Positive (NEGATIVE) 05/03/21 12:20 Urine Bilirubin Negative (NEGATIVE) 05/03/21 12:20 Urine Urobilinogen Normal (NORMAL) 05/03/21 12:20 Ur Leukocyte Esterase 3+ (NEGATIVE) 05/03/21 12:20 Urine RBC 20-30 /HPF (0-3) A 05/03/21 12:20 Urine WBC 30-50 /HPF (0-5) A 05/03/21 12:20 Ur Squamous Epith Cells Many /HPF (NEGATIVE) 05/03/21 12:20 Urine Bacteria Trace /HPF (NEGATIVE) 05/03/21 12:20 Ur Culture Indicated? Yes/culture set up 05/03/21 12:20 SARS-CoV-2 (PCR) Negative (NEGATIVE) 05/02/21 08:08 Influenza Type A (PCR) Negative (NEGATIVE) 05/02/21 08:08 Influenza Type B (PCR) Negative (NEGATIVE) 05/02/21 08:08 RSV (PCR) Negative (NEGATIVE) 05/02/21 08:08 Radiology Reviewed: Yes EKG Reviewed: Yes Plan (1) Closed fracture of left hip: Status: Acute Qualifiers: Encounter type: initial encounter Qualified Code(s): S72.002A - Fracture of unspecified part of neck of left femur, initial encounter for closed fracture Narrative Support Text: Stable. (2) Generalized weakness: Status: Acute (3) Dehydration: Status: Resolved Narrative Support Text: The patient's dehydration has resolved . Plan: Change Normal saline IV to kvo. (4) Sepsis associated hypotension: Status: Resolved Narrative Support Text: The patient's hypertension have resolved. Plan: IV Rocephin one gram IV q 12 hours and Levaquin 250 mg IV daily. Follow up with a blood cultures once they're available. The patient is a DNR status. (5) Elevation of cardiac enzymes: Status: Acute Plan: (6) Urinary tract infection: Status: Acute Qualifiers: Qualified Code(s): N39.0 - Urinary tract infection, site not specified Narrative Support Text: The urine culture grow E. Coli which is yo- sensitive to all antibiotics. Plan: Intravenous Rocephin and Levaquin.
[2021-05-06] MEDS: NS 1,000 ML IV 1,000 ML IV SCH ×4 (01:30→21:18)
--- NOTE | 2021-05-06 05:37 | RAD ---
HISTORYPNEUMONIA PMH: HTNSTUDYCHEST, 1 [id number]/2022FINDINGSThe trachea is midline. The cardiac silhouette is mildly enlarged.. Bilateral pleural effusions with bibasilar pleural parenchymal opacities. Upper lung kirby are clear. No pneumothorax. The bony thorax is unremarkable.IMPRESSIONMild cardiomegaly.Bilateral pleural effusions with bibasilar atelectasis and/or consolidation. No significant change from previous 05/04/2021.Electronically signed by: Percy Ulloa (May 06, 2021 05:35:57)
[2021-05-06 06:16] LABS: BASOPHILS % (AUTO) 0.2 % (0.2-1.0); EOSINOPHILS # (AUTO) 0.1 x10^3/uL (0.0-0.2); EOSINOPHILS % (AUTO) 1.3 % (0.9-2.9); HEMATOCRIT 27.7 % (36.0-47.0); HEMOGLOBIN 9.5 g/dL (12.0-16.0); LYMPHOCYTES % (AUTO) 10.1 % (21.0-51.0); MEAN CORPUSCULAR HEMOGLOBIN 31.8 pg (27.0-34.0); MEAN CORPUSCULAR HGB CONC 34.2 g/dL (33.0-35.0); MEAN CORPUSCULAR VOLUME 92.9 fL (80.0-100.0); MEAN PLATELET VOLUME 8.7 fL (7.4-11.0); MONOCYTES # (AUTO) 0.7 x10^3/uL (0.3-0.8); MONOCYTES % (AUTO) 6.9 % (0.0-13.0); NEUTROPHILS # (AUTO) 7.9 x10^3/uL (2.2-4.8); NEUTROPHILS % (AUTO) 81.5 % (42.0-75.0); RED BLOOD COUNT 2.98 X10^6/uL (3.5-5.4); RED CELL DISTRIBUTION WIDTH 13.8 % (11.6-16.5); WHITE BLOOD COUNT 9.7 X10^3/uL (3.6-10.0)
[2021-05-06 06:24] LABS: ALANINE AMINOTRANSFERASE 29 Units/L (12-78); ALKALINE PHOSPHATASE 127 Units/L (46-116); ASPARTATE AMINO TRANSFERASE 19 Units/L (15-37); BLOOD UREA NITROGEN 19 mg/dL (7-18); CALCIUM 8.3 mg/dL (8.5-10.1); CARBON DIOXIDE 23.7 mmol/L (21-32); CHLORIDE 110 mmol/L (98-107); COR CA(FOR HYPOALB) 9.9 mg/dL (8.5-10.1); CREATININE 0.45 mg/dL (0.55-1.02); SODIUM 141 mmol/L (136-145); TOTAL PROTEIN 5.2 g/dL (6.4-8.2); eGFR NON BLACK RACES > 60 (>60)
[2021-05-06] MEDS: XOPENEX 1.25 MG/3 ML NEBULE NEB SCH ×2 (06:25→13:14)
[2021-05-06] MEDS ORDERED: NORCO 5/325 MG TAB PO SCH (09:00)
[2021-05-06] MEDS: MILK OF MAGNESIA PO SCH ×2 (09:25→21:16)
[2021-05-06] MEDS: XANAX PO SCH ×2 (09:25→21:16)
[2021-05-06] MEDS: LEVAQUIN PREMIX IV 250 MG 250 MG/50 ML BAG IV SCH (09:26)
[2021-05-06] MEDS: MEGACE PO SCH ×2 (09:27→21:18)
[2021-05-06] MEDS: COREG TAB 12.5 MG PO SCH ×2 (09:27→21:16)
[2021-05-06] MEDS: ELIQUIS PO SCH ×2 (09:28→21:17)
[2021-05-06] MEDS: ROCEPHIN 1 GRAM IV PREMIX 1 G/50 ML IV.SOLN. IV SCH ×2 (10:37→21:16)
[2021-05-06] MEDS ORDERED: NORCO 5/325 MG TAB PO PRN (12:20)
[2021-05-06] MEDS: NORCO 5/325 MG TAB PO SCH ×2 (14:42→21:21)
[2021-05-07] MEDS: NS 1,000 ML IV 1,000 ML IV SCH ×2 (03:00→11:04)
[2021-05-07] MEDS: NORCO 5/325 MG TAB PO SCH ×5 (04:00→21:00)
[2021-05-07] MEDS: XOPENEX 1.25 MG/3 ML NEBULE NEB SCH ×4 (04:59→20:10)
--- NOTE | 2021-05-07 08:31 | PCM.PROG ---
Progress Note Progress Note for Day of Date of Exam: 05/06/21 Subjective Subjective: This is an 85 year old white female who is a resident at [facility]. She was admitted for Sepsis likely due to urinary tract infection and community acquired pneumonia. This morning patient appears to have made improvement in her symptoms compared to yesterday. She is currently requiring 2L nasal cannula supplemental oxygen. The patient's oxygen saturation this morning is 100% on 2 L O2 per nasal cannula. The patient does report increased back pain this morning. I will start her on hydrocodone/acetaminophen 5/325 mg PO Q 8 hours on a scheduled regimen. Possible discharge back to [facility] in the morning if a patient continues to do well today and overnight. Past Medical Family Social History Past Med/Fam/Surg Hx: No changes since H&P Allergies: Allergies No Known Drug Allergies Allergy (Verified 04/22/21 14:58) Review of Systems ROS: No change since H&P Vital Signs and I&O's Vital Signs: Temperature 97.8 F Pulse Rate [Apical] 75 Pulse Rate 84 Respiratory Rate 20 Blood Pressure [Right Arm] 141/64 Blood Pressure 186/75 O2 Sat by Pulse Oximetry 95 Intake and Output: Intake & Output 05/04/21 05/05/21 05/06/21 05/07/21 11:59 11:59 11:59 11:59 Intake Total 2567 / 2567 2192 / 2192 1383 / 1383 Output Total 1300 / 1300 1800 / 1800 1250 / 1250 Balance 1267 / 1267 392 / 392 133 / 133 Physical Exam Oriented: Normal Eyes: Normal Ear: Normal Nose: Normal Respiratory: Diminished Cardiovascular: Normal : Normal Auscultation: Bowel Sounds: Normal Tenderness: Normal Skin: Decreased Turgur Musculoskeletal: Hip Psychiatric: Other (resting at this time. ) Affect: Quiet Speech Pattern: Clear Laboratory and Diagnostics Result Diagrams: 05/06/21 05:35 05/06/21 05:35 Labs: 05/03/21 12:20 Urine,Clean Catch Urine Culture - Final Escherichia Coli Laboratory WBC 9.7 X10^3/uL (3.6-10.0) 05/06/21 05:35 RBC 2.98 X10^6/uL (3.5-5.4) L 05/06/21 05:35 Hgb 9.5 g/dL (12.0-16.0) L 05/06/21 05:35 Hct 27.7 % (36.0-47.0) L 05/06/21 05:35 MCV 92.9 fL (80.0-100.0) 05/06/21 05:35 MCH 31.8 pg (27.0-34.0) 05/06/21 05:35 MCHC 34.2 g/dL (33.0-35.0) 05/06/21 05:35 RDW 13.8 % (11.6-16.5) 05/06/21 05:35 Plt Count 217 X10^3/uL (150.0-450.0) 05/06/21 05:35 Plt Count Comment Adequate (ADEQUATE) 05/04/21 05:46 MPV 8.7 fL (7.4-11.0) 05/06/21 05:35 Neut % (Auto) 81.5 % (42.0-75.0) H 05/06/21 05:35 Lymph % (Auto) 10.1 % (21.0-51.0) L 05/06/21 05:35 [place] % (Auto) 6.9 % (0.0-13.0) 05/06/21 05:35 Eos % (Auto) 1.3 % (0.9-2.9) 05/06/21 05:35 Baso % (Auto) 0.2 % (0.2-1.0) 05/06/21 05:35 Neut # (Auto) 7.9 x10^3/uL (2.2-4.8) H 05/06/21 05:35 Lymph # (Auto) 1.0 X10^3/uL (1.3-2.9) L 05/06/21 05:35 [place] # (Auto) 0.7 x10^3/uL (0.3-0.8) 05/06/21 05:35 Eos # (Auto) 0.1 x10^3/uL (0.0-0.2) 05/06/21 05:35 Baso # (Auto) 0.0 X10^3/uL (0.0-0.1) 05/06/21 05:35 Absolute Nucleated RBC 0.0 /100WBC 05/06/21 05:35 Total Counted 100 05/04/21 05:46 Neutrophils % (Manual) 85 % (39-76) H 05/04/21 05:46 Band Neutrophils % 12 % (0-10) H 05/04/21 05:46 Lymphocytes % (Manual) 3 % (13-43) L 05/04/21 05:46 Monocytes % (Manual) 1 % (4-9) L 05/03/21 06:04 Plt Morphology Comment Normal (NORMAL) 05/04/21 05:46 RBC Morphology Normal (NORMAL) 05/04/21 05:46 Sample Site Lr 05/02/21 07:49 ABG pH 7.510 (7.35-7.45) H 05/02/21 07:49 ABG pCO2 32.0 mmHg (35.0-45.0) L 05/02/21 07:49 ABG pO2 51.0 mmHg (80.0-100.0) L 05/02/21 07:49 ABG HCO3 25.5 mmol/L (22-26) 05/02/21 07:49 ABG O2 Saturation 89.0 % (90-100) L 05/02/21 07:49 ABG Base Excess 2.9 mmol/L (-2.0-2.0) H 05/02/21 07:49 Jose Test Pos 05/02/21 07:49 A-a Gradient 59.0 mmHg 05/02/21 07:49 FiO2 21.0 05/02/21 07:49 Blood Gas Comments David well cb 05/02/21 07:49 Sodium 141 mmol/L (136-145) 05/06/21 05:35 Corrected Sodium TNP 05/06/21 05:35 Potassium 3.7 mmol/L (3.5-5.1) 05/06/21 05:35 Chloride 110 mmol/L (98-107) H 05/06/21 05:35 Carbon Dioxide 23.7 mmol/L (21-32) 05/06/21 05:35 BUN 19 mg/dL (7-18) H 05/06/21 05:35 Creatinine 0.45 mg/dL (0.55-1.02) L 05/06/21 05:35 Est GFR (MDRD) Af Amer > 60 (>60) 05/06/21 05:35 Est GFR (MDRD) Non-Af > 60 (>60) 05/06/21 05:35 Glucose 100 mg/dL (65-99) H 05/06/21 05:35 Lactic Acid 2.3 mmol/L (0.4-2.0) H 05/02/21 18:00 Calcium 8.3 mg/dL (8.5-10.1) L 05/06/21 05:35 Corrected Calcium 9.9 mg/dL (8.5-10.1) 05/06/21 05:35 Total Bilirubin 0.50 mg/dL (0.2-1.0) 05/06/21 05:35 AST 19 Units/L (15-37) 05/06/21 05:35 ALT 29 Units/L (12-78) 05/06/21 05:35 Alkaline Phosphatase 127 Units/L (46-116) H 05/06/21 05:35 Creatine Kinase 143 Units/L (26-192) 05/02/21 20:26 CK-MB (CK-2) 3.6 ng/mL (0-4.0) 05/02/21 20:26 CK/CKMB % Calc 2.5 % (<4) 05/02/21 20:26 Troponin I High Sens 149.4 ng/L (4.0-60.0) H* 05/02/21 20:26 Total Protein 5.2 g/dL (6.4-8.2) L 05/06/21 05:35 Albumin 2.0 g/dL (3.4-5.0) L 05/06/21 05:35 Globulin 3.2 g/dL (2.5-4.5) 05/06/21 05:35 Albumin/Globulin Ratio 0.6 Ratio (1.1-2.1) L 05/06/21 05:35 Specimen Type Clean catch urine 05/03/21 12:20 Urine Color Yellow (YELLOW) 05/03/21 12:20 Urine Appearance Cloudy (CLEAR) 05/03/21 12:20 Urine pH 8.0 (5.0 - 8.0) 05/03/21 12:20 Ur Specific [place] 1.010 (1.000-1.030) 05/03/21 12:20 Urine Protein 3+ (NEGATIVE) 05/03/21 12:20 Urine Glucose (UA) Negative (NEGATIVE) 05/03/21 12:20 Urine Ketones Negative (NEGATIVE) 05/03/21 12:20 Urine Occult Blood 5+ (NEGATIVE) 05/03/21 12:20 Urine Nitrite Positive (NEGATIVE) 05/03/21 12:20 Urine Bilirubin Negative (NEGATIVE) 05/03/21 12:20 Urine Urobilinogen Normal (NORMAL) 05/03/21 12:20 Ur Leukocyte Esterase 3+ (NEGATIVE) 05/03/21 12:20 Urine RBC 20-30 /HPF (0-3) A 05/03/21 12:20 Urine WBC 30-50 /HPF (0-5) A 05/03/21 12:20 Ur Squamous Epith Cells Many /HPF (NEGATIVE) 05/03/21 12:20 Urine Bacteria Trace /HPF (NEGATIVE) 05/03/21 12:20 Ur Culture Indicated? Yes/culture set up 05/03/21 12:20 SARS-CoV-2 (PCR) Negative (NEGATIVE) 05/02/21 08:08 Influenza Type A (PCR) Negative (NEGATIVE) 05/02/21 08:08 Influenza Type B (PCR) Negative (NEGATIVE) 05/02/21 08:08 RSV (PCR) Negative (NEGATIVE) 05/02/21 08:08 Plan (1) Pneumonia: Status: Acute Plan: Continue The patient on Rocephin 1 g IV Q 12 hours and Levaquin 250 mg IV daily. (2) Back pain: Status: Acute Plan: Patient will be started on hydrocodone/acetaminophen 5/325 mg po q 8 hours. (3) Closed fracture of left hip: Status: Acute Qualifiers: Encounter type: initial encounter Qualified Code(s): S72.002A - Fracture of unspecified part of neck of left femur, initial encounter for closed fracture (4) Generalized weakness: Status: Acute (5) Dehydration: Status: Resolved Plan: Change Normal saline IV to kvo. (6) Sepsis associated hypotension: Status: Resolved Plan: IV Rocephin one gram IV q 12 hours and Levaquin 250 mg IV daily. Follow up with a blood cultures once they're available. The patient is a DNR status. (7) Elevation of cardiac enzymes: Status: Acute Plan: (8) Urinary tract infection: Status: Acute Qualifiers: Qualified Code(s): N39.0 - Urinary tract infection, site not specified Narrative Support Text: The patient's urinary tract infection is secondary to E. coli. It is yo-sensitive to all antibiotics. Plan: Intravenous Rocephin and Levaquin.
[2021-05-07 09:24] LABS: BASOPHILS % (AUTO) 0.2 % (0.2-1.0); EOSINOPHILS # (AUTO) 0.1 x10^3/uL (0.0-0.2); EOSINOPHILS % (AUTO) 2.1 % (0.9-2.9); HEMATOCRIT 29.9 % (36.0-47.0); HEMOGLOBIN 10.1 g/dL (12.0-16.0); LYMPHOCYTES # (AUTO) 0.9 X10^3/uL (1.3-2.9); LYMPHOCYTES % (AUTO) 14.9 % (21.0-51.0); MEAN CORPUSCULAR HEMOGLOBIN 31.1 pg (27.0-34.0); MEAN CORPUSCULAR HGB CONC 33.7 g/dL (33.0-35.0); MEAN CORPUSCULAR VOLUME 92.4 fL (80.0-100.0); MEAN PLATELET VOLUME 8.2 fL (7.4-11.0); MONOCYTES # (AUTO) 0.8 x10^3/uL (0.3-0.8); MONOCYTES % (AUTO) 12.1 % (0.0-13.0); NEUTROPHILS # (AUTO) 4.5 x10^3/uL (2.2-4.8); NEUTROPHILS % (AUTO) 70.7 % (42.0-75.0); RED BLOOD COUNT 3.23 X10^6/uL (3.5-5.4); RED CELL DISTRIBUTION WIDTH 13.8 % (11.6-16.5); WHITE BLOOD COUNT 6.3 X10^3/uL (3.6-10.0)
[2021-05-07] MEDS: XANAX PO SCH ×2 (09:29→21:00)
[2021-05-07] MEDS: COREG TAB 12.5 MG PO SCH ×2 (09:30→20:59)
[2021-05-07] MEDS: LEVAQUIN PREMIX IV 250 MG 250 MG/50 ML BAG IV SCH (09:31)
[2021-05-07] MEDS: ELIQUIS PO SCH ×2 (09:31→20:59)
[2021-05-07] MEDS: MEGACE PO SCH ×2 (09:31→21:00)
[2021-05-07 09:39] LABS: ALANINE AMINOTRANSFERASE 23 Units/L (12-78); ALKALINE PHOSPHATASE 118 Units/L (46-116); ASPARTATE AMINO TRANSFERASE 16 Units/L (15-37); BLOOD UREA NITROGEN 17 mg/dL (7-18); CALCIUM 7.9 mg/dL (8.5-10.1); CARBON DIOXIDE 25.7 mmol/L (21-32); CHLORIDE 110 mmol/L (98-107); COR CA(FOR HYPOALB) 9.5 mg/dL (8.5-10.1); COR NA(FOR HYPERGLY) 143 mmol/L (136-145); CREATININE 0.54 mg/dL (0.55-1.02); SODIUM 143 mmol/L (136-145); eGFR NON BLACK RACES > 60 (>60)
[2021-05-07] MEDS: ROCEPHIN 1 GRAM IV PREMIX 1 G/50 ML IV.SOLN. IV SCH ×2 (10:08→21:00)
--- NOTE | 2021-05-07 13:49 | RAD ---
HISTORYCOUGH, SEPSIS Relevant Clinical InformationSTUDYCHEST, 1 VIEWCOMPARISONPortable chest May 06, 2021.FINDINGSThe trachea is midline. The cardiac silhouette is unremarkable. There are bilateral right greater than left pleural effusions. Effusion on the right appears to have increased slightly when compared to yesterdays film. Underlying atelectasis could not be excluded. The bony thorax is unremarkable.IMPRESSIONBilateral right greater than left pleural effusions with mild increase in the size of the pleural effusion on the right compared to yesterdays film..Electronically signed by: BOBBY CARROLL (May 07, 2021 13:47:58)
[2021-05-07] MEDS ORDERED: LASIX IVP ONE (14:07)
[2021-05-07] MEDS ORDERED: POTASSIUM CHLORIDE LIQ 20 MEQ UDC PO PRN (18:36)
[2021-05-07] MEDS ORDERED: K-DUR TAB 20 MEQ PO PRN (18:36)
[2021-05-07] MEDS ORDERED: POTASSIUM CHL 60 MEQ/NS 0.45% 500 ML IV PRN (18:36)
[2021-05-07] MEDS ORDERED: KLOR-CON PO PRN (18:36)
[2021-05-07] MEDS ORDERED: MICRO K EXTEN CAP 10 MEQ PO PRN (18:36)
[2021-05-07] MEDS ORDERED: K-RIDER 10 MEQ/NS 100 ML 10 MEQ/100 ML BAG IV PRN (18:36)
[2021-05-07] MEDS ORDERED: POTASSIUM CHL 40 MEQ/NS 0.45% 500 ML IV PRN (18:36)
[2021-05-07] MEDS ORDERED: MAGNESIUM SULFATE 1 GRAM/100 mL PREMIX 1 G/100 ML BAG IV PRN (18:36)
[2021-05-08] MEDS: NORCO 5/325 MG TAB PO SCH ×4 (02:42→21:49)
[2021-05-08] MEDS: XOPENEX 1.25 MG/3 ML NEBULE NEB SCH ×3 (05:13→20:14)
[2021-05-08 06:42] LABS: BASOPHILS % (AUTO) 0.4 % (0.2-1.0); EOSINOPHILS # (AUTO) 0.2 x10^3/uL (0.0-0.2); HEMATOCRIT 28.6 % (36.0-47.0); HEMOGLOBIN 9.7 g/dL (12.0-16.0); LYMPHOCYTES # (AUTO) 1.2 X10^3/uL (1.3-2.9); LYMPHOCYTES % (AUTO) 15.2 % (21.0-51.0); MEAN CORPUSCULAR HEMOGLOBIN 31.4 pg (27.0-34.0); MEAN CORPUSCULAR HGB CONC 33.9 g/dL (33.0-35.0); MEAN CORPUSCULAR VOLUME 92.6 fL (80.0-100.0); MONOCYTES # (AUTO) 0.9 x10^3/uL (0.3-0.8); MONOCYTES % (AUTO) 12.3 % (0.0-13.0); NEUTROPHILS # (AUTO) 5.3 x10^3/uL (2.2-4.8); NEUTROPHILS % (AUTO) 70.1 % (42.0-75.0); RED BLOOD COUNT 3.08 X10^6/uL (3.5-5.4); RED CELL DISTRIBUTION WIDTH 13.9 % (11.6-16.5); WHITE BLOOD COUNT 7.6 X10^3/uL (3.6-10.0)
[2021-05-08 07:16] LABS: ALANINE AMINOTRANSFERASE 18 Units/L (12-78); ALBUMIN 1.9 g/dL (3.4-5.0); ALKALINE PHOSPHATASE 113 Units/L (46-116); ASPARTATE AMINO TRANSFERASE 20 Units/L (15-37); BLOOD UREA NITROGEN 15 mg/dL (7-18); CARBON DIOXIDE 23.7 mmol/L (21-32); CHLORIDE 107 mmol/L (98-107); COR CA(FOR HYPOALB) 9.7 mg/dL (8.5-10.1); CREATININE 0.52 mg/dL (0.55-1.02); SODIUM 139 mmol/L (136-145); TOTAL PROTEIN 4.7 g/dL (6.4-8.2); eGFR NON BLACK RACES > 60 (>60)
[2021-05-08 07:33] LABS: BAND NEUTROPHILS % 4 % (0-10); PLATELET MORPHOLOGY COMMENT NORMAL (NORMAL)
[2021-05-08 07:37] LABS: HELMET CELLS PRESENT
--- NOTE | 2021-05-08 09:48 | PCM.PROG ---
Progress Note Progress Note for Day of Date of Exam: 05/07/21 Subjective Subjective: This is an 85 year old white female who is a resident at [facility]. She was admitted for Sepsis likely due to urinary tract infection and community acquired pneumonia. This morning the patient is resting well. It is Noted that her blood pressure still elevated. Overall the place looks better and we are going to start working on getting her transferred [facility] to the [facility]. Past Medical Family Social History Past Med/Fam/Surg Hx: No changes since H&P Allergies: Allergies No Known Drug Allergies Allergy (Verified 04/22/21 14:58) Review of Systems ROS: No change since H&P Vital Signs and I&O's Vital Signs: Temperature 98.7 F Pulse Rate [Apical] 75 Pulse Rate 83 Respiratory Rate 20 Blood Pressure [Right Arm] 114/58 Blood Pressure 186/75 O2 Sat by Pulse Oximetry 93 Intake and Output: Intake & Output 05/05/21 05/06/21 05/07/21 05/08/21 11:59 11:59 11:59 11:59 Intake Total 2567 / 2567 2192 / 2192 1383 / 1383 950 / 950 Output Total 1300 / 1300 1800 / 1800 1250 / 1250 1470 / 1470 Balance 1267 / 1267 392 / 392 133 / 133 -520 / -520 Physical Exam Oriented: Normal Eyes: Normal Ear: Normal Nose: Normal Respiratory: Diminished Cardiovascular: Normal : Normal Auscultation: Bowel Sounds: Normal Tenderness: Normal Skin: Decreased Turgur Musculoskeletal: Hip Psychiatric: Other (resting at this time. ) Affect: Quiet Speech Pattern: Clear Laboratory and Diagnostics Result Diagrams: 05/08/21 05:20 05/08/21 05:20 Labs: 05/03/21 12:20 Urine,Clean Catch Urine Culture - Final Escherichia Coli Laboratory WBC 7.6 X10^3/uL (3.6-10.0) 05/08/21 05:20 RBC 3.08 X10^6/uL (3.5-5.4) L 05/08/21 05:20 Hgb 9.7 g/dL (12.0-16.0) L 05/08/21 05:20 Hct 28.6 % (36.0-47.0) L 05/08/21 05:20 MCV 92.6 fL (80.0-100.0) 05/08/21 05:20 MCH 31.4 pg (27.0-34.0) 05/08/21 05:20 MCHC 33.9 g/dL (33.0-35.0) 05/08/21 05:20 RDW 13.9 % (11.6-16.5) 05/08/21 05:20 Plt Count 225 X10^3/uL (150.0-450.0) 05/08/21 05:20 Plt Count Comment Adequate (ADEQUATE) 05/08/21 05:20 MPV 9.0 fL (7.4-11.0) 05/08/21 05:20 Neut % (Auto) 70.1 % (42.0-75.0) 05/08/21 05:20 Lymph % (Auto) 15.2 % (21.0-51.0) L 05/08/21 05:20 [place] % (Auto) 12.3 % (0.0-13.0) 05/08/21 05:20 Eos % (Auto) 2.0 % (0.9-2.9) 05/08/21 05:20 Baso % (Auto) 0.4 % (0.2-1.0) 05/08/21 05:20 Neut # (Auto) 5.3 x10^3/uL (2.2-4.8) H 05/08/21 05:20 Lymph # (Auto) 1.2 X10^3/uL (1.3-2.9) L 05/08/21 05:20 [place] # (Auto) 0.9 x10^3/uL (0.3-0.8) H 05/08/21 05:20 Eos # (Auto) 0.2 x10^3/uL (0.0-0.2) 05/08/21 05:20 Baso # (Auto) 0.0 X10^3/uL (0.0-0.1) 05/08/21 05:20 Absolute Nucleated RBC 0.1 /100WBC 05/08/21 05:20 Total Counted 100 05/08/21 05:20 Neutrophils % (Manual) 80 % (39-76) H 05/08/21 05:20 Band Neutrophils % 4 % (0-10) 05/08/21 05:20 Lymphocytes % (Manual) 11 % (13-43) L 05/08/21 05:20 Monocytes % (Manual) 4 % (4-9) 05/08/21 05:20 Eosinophils % (Manual) 1 % (0-6) 05/08/21 05:20 Plt Morphology Comment Normal (NORMAL) 05/08/21 05:20 RBC Morphology Abnormal (NORMAL) A 05/08/21 05:20 Helmet Cells Present 05/08/21 05:20 Sample Site Lr 05/02/21 07:49 ABG pH 7.510 (7.35-7.45) H 05/02/21 07:49 ABG pCO2 32.0 mmHg (35.0-45.0) L 05/02/21 07:49 ABG pO2 51.0 mmHg (80.0-100.0) L 05/02/21 07:49 ABG HCO3 25.5 mmol/L (22-26) 05/02/21 07:49 ABG O2 Saturation 89.0 % (90-100) L 05/02/21 07:49 ABG Base Excess 2.9 mmol/L (-2.0-2.0) H 05/02/21 07:49 Jose Test Pos 05/02/21 07:49 A-a Gradient 59.0 mmHg 05/02/21 07:49 FiO2 21.0 05/02/21 07:49 Blood Gas Comments David well cb 05/02/21 07:49 Sodium 139 mmol/L (136-145) 05/08/21 05:20 Corrected Sodium TNP 05/08/21 05:20 Potassium 4.0 mmol/L (3.5-5.1) 05/08/21 05:20 Chloride 107 mmol/L (98-107) 05/08/21 05:20 Carbon Dioxide 23.7 mmol/L (21-32) 05/08/21 05:20 BUN 15 mg/dL (7-18) 05/08/21 05:20 Creatinine 0.52 mg/dL (0.55-1.02) L 05/08/21 05:20 Est GFR (MDRD) Af Amer > 60 (>60) 05/08/21 05:20 Est GFR (MDRD) Non-Af > 60 (>60) 05/08/21 05:20 Glucose 110 mg/dL (65-99) H 05/08/21 05:20 Lactic Acid 2.3 mmol/L (0.4-2.0) H 05/02/21 18:00 Calcium 8.0 mg/dL (8.5-10.1) L 05/08/21 05:20 Corrected Calcium 9.7 mg/dL (8.5-10.1) 05/08/21 05:20 Magnesium 2.1 mg/dL (1.7-2.9) 05/07/21 14:40 Total Bilirubin 0.30 mg/dL (0.2-1.0) 05/08/21 05:20 AST 20 Units/L (15-37) 05/08/21 05:20 ALT 18 Units/L (12-78) 05/08/21 05:20 Alkaline Phosphatase 113 Units/L (46-116) 05/08/21 05:20 Creatine Kinase 143 Units/L (26-192) 05/02/21 20:26 CK-MB (CK-2) 3.6 ng/mL (0-4.0) 05/02/21 20:26 CK/CKMB % Calc 2.5 % (<4) 05/02/21 20:26 Troponin I High Sens 149.4 ng/L (4.0-60.0) H* 05/02/21 20:26 B-Natriuretic Peptide 262 pg/mL (0-79) H 05/08/21 05:20 Total Protein 4.7 g/dL (6.4-8.2) L 05/08/21 05:20 Albumin 1.9 g/dL (3.4-5.0) L 05/08/21 05:20 Globulin 2.8 g/dL (2.5-4.5) 05/08/21 05:20 Albumin/Globulin Ratio 0.7 Ratio (1.1-2.1) L 05/08/21 05:20 Specimen Type Clean catch urine 05/03/21 12:20 Urine Color Yellow (YELLOW) 05/03/21 12:20 Urine Appearance Cloudy (CLEAR) 05/03/21 12:20 Urine pH 8.0 (5.0 - 8.0) 05/03/21 12:20 Ur Specific [place] 1.010 (1.000-1.030) 05/03/21 12:20 Urine Protein 3+ (NEGATIVE) 05/03/21 12:20 Urine Glucose (UA) Negative (NEGATIVE) 05/03/21 12:20 Urine Ketones Negative (NEGATIVE) 05/03/21 12:20 Urine Occult Blood 5+ (NEGATIVE) 05/03/21 12:20 Urine Nitrite Positive (NEGATIVE) 05/03/21 12:20 Urine Bilirubin Negative (NEGATIVE) 05/03/21 12:20 Urine Urobilinogen Normal (NORMAL) 05/03/21 12:20 Ur Leukocyte Esterase 3+ (NEGATIVE) 05/03/21 12:20 Urine RBC 20-30 /HPF (0-3) A 05/03/21 12:20 Urine WBC 30-50 /HPF (0-5) A 05/03/21 12:20 Ur Squamous Epith Cells Many /HPF (NEGATIVE) 05/03/21 12:20 Urine Bacteria Trace /HPF (NEGATIVE) 05/03/21 12:20 Ur Culture Indicated? Yes/culture set up 05/03/21 12:20 SARS-CoV-2 (PCR) Negative (NEGATIVE) 05/02/21 08:08 Influenza Type A (PCR) Negative (NEGATIVE) 05/02/21 08:08 Influenza Type B (PCR) Negative (NEGATIVE) 05/02/21 08:08 RSV (PCR) Negative (NEGATIVE) 05/02/21 08:08 Radiology Reviewed: Yes Plan (1) Pleural effusion: Status: Acute Plan: check BNP today and again in the morning. (2) HTN (hypertension): Status: Acute Plan: Start Carvedilol 12.5 mg PO BID (3) Pneumonia: Status: Acute Qualifiers: Pneumonia type: due to unspecified organism Lung location: lower lobe of lung Plan: Continue The patient on Rocephin 1 g IV Q 12 hours and Levaquin 250 mg IV daily. (4) Back pain: Status: Acute Qualifiers: Back pain location: low back pain Chronicity: chronic Sciatica presence: without sciatica Plan: Patient will be started on hydrocodone/acetaminophen 5/325 mg po q 8 hours. (5) Closed fracture of left hip: Status: Acute Qualifiers: Encounter type: initial encounter Qualified Code(s): S72.002A - Fracture of unspecified part of neck of left femur, initial encounter for closed fracture (6) Generalized weakness: Status: Acute (7) Dehydration: Status: Resolved Plan: Change Normal saline IV to kvo. (8) Sepsis associated hypotension: Status: Resolved Plan: IV Rocephin one gram IV q 12 hours and Levaquin 250 mg IV daily. Follow up with a blood cultures once they're available. The patient is a DNR status. (9) Elevation of cardiac enzymes: Status: Acute Plan: (10) Urinary tract infection: Status: Acute Qualifiers: Qualified Code(s): N39.0 - Urinary tract infection, site not specified Plan: Intravenous Rocephin and Levaquin.
[2021-05-08] MEDS: LEVAQUIN PREMIX IV 250 MG 250 MG/50 ML BAG IV SCH (10:31)
[2021-05-08] MEDS: COREG TAB 12.5 MG PO SCH ×2 (10:31→21:49)
[2021-05-08] MEDS: ELIQUIS PO SCH ×2 (10:31→21:49)
[2021-05-08] MEDS: MEGACE PO SCH ×2 (10:32→21:49)
[2021-05-08] MEDS: XANAX PO SCH ×2 (10:32→21:50)
[2021-05-08] MEDS: ROCEPHIN 1 GRAM IV PREMIX 1 G/50 ML IV.SOLN. IV SCH ×2 (10:48→22:02)
--- NOTE | 2021-05-08 11:36 | RAD ---
HISTORYCough, sepsisSTUDYChest AP [id number] t is mildly enlarged. No definite congestive heart failure is noted. The aorta is calcified. The carmen are normal. Right pleural effusion is unchanged from the prior examination. It obscures the lung markings in large portion of the right lower lobe and underlying infiltrates are not excluded. Left pleural effusion is unchanged but also obscures the lung markings in the left lower lobe. Left upper lung kirby are clear.IMPRESSIONNo significant change from the prior examinationElectronically signed by: CARLY SINGH (May 08, 2021 11:34:54)
[2021-05-08] MEDS ORDERED: LASIX IVP ONE (11:40)
--- NOTE | 2021-05-08 16:11 | PCM.PROG ---
Progress Note Progress Note for Day of Date of Exam: 05/08/21 Subjective Subjective: This is an 85 year old white female who is a resident at [facility] [place]. She was admitted for Sepsis likely due to urinary tract infection and community acquired pneumonia. This morning the patient is resting well. It is Noted that her blood pressure still elevated. Overall the place looks better and we are going to start working [facility] Past Medical Family Social History Past Med/Fam/Surg Hx: No changes since H&P Allergies: Allergies No Known Drug Allergies Allergy (Verified 04/22/21 14:58) Review of Systems ROS: No change since H&P Vital Signs and I&O's Vital Signs: Temperature 98.3 F Pulse Rate [Apical] 78 Pulse Rate 83 Respiratory Rate 18 Blood Pressure [Right Arm] 124/58 Blood Pressure 186/75 O2 Sat by Pulse Oximetry 93 Intake and Output: Intake & Output 05/06/21 05/07/21 05/08/21 05/09/21 11:59 11:59 11:59 11:59 Intake Total 2192 / 2192 1383 / 1383 950 / 950 50 / 50 Output Total 1800 / 1800 1250 / 1250 1470 / 1470 450 / 450 Balance 392 / 392 133 / 133 -520 / -520 -400 / -400 Physical Exam Oriented: Normal Eyes: Normal Ear: Normal Nose: Normal Respiratory: Diminished Cardiovascular: Normal : Normal Auscultation: Bowel Sounds: Normal Tenderness: Normal Skin: Decreased Turgur Musculoskeletal: Hip Psychiatric: Other (resting at this time. ) Affect: Quiet Speech Pattern: Clear Laboratory and Diagnostics Result Diagrams: 05/08/21 05:20 05/08/21 05:20 Labs: 05/03/21 12:20 Urine,Clean Catch Urine Culture - Final Escherichia Coli Laboratory WBC 7.6 X10^3/uL (3.6-10.0) 05/08/21 05:20 RBC 3.08 X10^6/uL (3.5-5.4) L 05/08/21 05:20 Hgb 9.7 g/dL (12.0-16.0) L 05/08/21 05:20 Hct 28.6 % (36.0-47.0) L 05/08/21 05:20 MCV 92.6 fL (80.0-100.0) 05/08/21 05:20 MCH 31.4 pg (27.0-34.0) 05/08/21 05:20 MCHC 33.9 g/dL (33.0-35.0) 05/08/21 05:20 RDW 13.9 % (11.6-16.5) 05/08/21 05:20 Plt Count 225 X10^3/uL (150.0-450.0) 05/08/21 05:20 Plt Count Comment Adequate (ADEQUATE) 05/08/21 05:20 MPV 9.0 fL (7.4-11.0) 05/08/21 05:20 Neut % (Auto) 70.1 % (42.0-75.0) 05/08/21 05:20 Lymph % (Auto) 15.2 % (21.0-51.0) L 05/08/21 05:20 Sanders % (Auto) 12.3 % (0.0-13.0) 05/08/21 05:20 Eos % (Auto) 2.0 % (0.9-2.9) 05/08/21 05:20 Baso % (Auto) 0.4 % (0.2-1.0) 05/08/21 05:20 Neut # (Auto) 5.3 x10^3/uL (2.2-4.8) H 05/08/21 05:20 Lymph # (Auto) 1.2 X10^3/uL (1.3-2.9) L 05/08/21 05:20 Sanders # (Auto) 0.9 x10^3/uL (0.3-0.8) H 05/08/21 05:20 Eos # (Auto) 0.2 x10^3/uL (0.0-0.2) 05/08/21 05:20 Baso # (Auto) 0.0 X10^3/uL (0.0-0.1) 05/08/21 05:20 Absolute Nucleated RBC 0.1 /100WBC 05/08/21 05:20 Total Counted 100 05/08/21 05:20 Neutrophils % (Manual) 80 % (39-76) H 05/08/21 05:20 Band Neutrophils % 4 % (0-10) 05/08/21 05:20 Lymphocytes % (Manual) 11 % (13-43) L 05/08/21 05:20 Monocytes % (Manual) 4 % (4-9) 05/08/21 05:20 Eosinophils % (Manual) 1 % (0-6) 05/08/21 05:20 Plt Morphology Comment Normal (NORMAL) 05/08/21 05:20 RBC Morphology Abnormal (NORMAL) A 05/08/21 05:20 Helmet Cells Present 05/08/21 05:20 Sample Site Lr 05/02/21 07:49 ABG pH 7.510 (7.35-7.45) H 05/02/21 07:49 ABG pCO2 32.0 mmHg (35.0-45.0) L 05/02/21 07:49 ABG pO2 51.0 mmHg (80.0-100.0) L 05/02/21 07:49 ABG HCO3 25.5 mmol/L (22-26) 05/02/21 07:49 ABG O2 Saturation 89.0 % (90-100) L 05/02/21 07:49 ABG Base Excess 2.9 mmol/L (-2.0-2.0) H 05/02/21 07:49 Jose Test Pos 05/02/21 07:49 A-a Gradient 59.0 mmHg 05/02/21 07:49 FiO2 21.0 05/02/21 07:49 Blood Gas Comments David well cb 05/02/21 07:49 Sodium 139 mmol/L (136-145) 05/08/21 05:20 Corrected Sodium TNP 05/08/21 05:20 Potassium 4.0 mmol/L (3.5-5.1) 05/08/21 05:20 Chloride 107 mmol/L (98-107) 05/08/21 05:20 Carbon Dioxide 23.7 mmol/L (21-32) 05/08/21 05:20 BUN 15 mg/dL (7-18) 05/08/21 05:20 Creatinine 0.52 mg/dL (0.55-1.02) L 05/08/21 05:20 Est GFR (MDRD) Af Amer > 60 (>60) 05/08/21 05:20 Est GFR (MDRD) Non-Af > 60 (>60) 05/08/21 05:20 Glucose 110 mg/dL (65-99) H 05/08/21 05:20 Lactic Acid 2.3 mmol/L (0.4-2.0) H 05/02/21 18:00 Calcium 8.0 mg/dL (8.5-10.1) L 05/08/21 05:20 Corrected Calcium 9.7 mg/dL (8.5-10.1) 05/08/21 05:20 Magnesium 2.1 mg/dL (1.7-2.9) 05/07/21 14:40 Total Bilirubin 0.30 mg/dL (0.2-1.0) 05/08/21 05:20 AST 20 Units/L (15-37) 05/08/21 05:20 ALT 18 Units/L (12-78) 05/08/21 05:20 Alkaline Phosphatase 113 Units/L (46-116) 05/08/21 05:20 Creatine Kinase 143 Units/L (26-192) 05/02/21 20:26 CK-MB (CK-2) 3.6 ng/mL (0-4.0) 05/02/21 20:26 CK/CKMB % Calc 2.5 % (<4) 05/02/21 20:26 Troponin I High Sens 149.4 ng/L (4.0-60.0) H* 05/02/21 20:26 B-Natriuretic Peptide 262 pg/mL (0-79) H 05/08/21 05:20 Total Protein 4.7 g/dL (6.4-8.2) L 05/08/21 05:20 Albumin 1.9 g/dL (3.4-5.0) L 05/08/21 05:20 Globulin 2.8 g/dL (2.5-4.5) 05/08/21 05:20 Albumin/Globulin Ratio 0.7 Ratio (1.1-2.1) L 05/08/21 05:20 Specimen Type Clean catch urine 05/03/21 12:20 Urine Color Yellow (YELLOW) 05/03/21 12:20 Urine Appearance Cloudy (CLEAR) 05/03/21 12:20 Urine pH 8.0 (5.0 - 8.0) 05/03/21 12:20 Ur Specific [place] 1.010 (1.000-1.030) 05/03/21 12:20 Urine Protein 3+ (NEGATIVE) 05/03/21 12:20 Urine Glucose (UA) Negative (NEGATIVE) 05/03/21 12:20 Urine Ketones Negative (NEGATIVE) 05/03/21 12:20 Urine Occult Blood 5+ (NEGATIVE) 05/03/21 12:20 Urine Nitrite Positive (NEGATIVE) 05/03/21 12:20 Urine Bilirubin Negative (NEGATIVE) 05/03/21 12:20 Urine Urobilinogen Normal (NORMAL) 05/03/21 12:20 Ur Leukocyte Esterase 3+ (NEGATIVE) 05/03/21 12:20 Urine RBC 20-30 /HPF (0-3) A 05/03/21 12:20 Urine WBC 30-50 /HPF (0-5) A 05/03/21 12:20 Ur Squamous Epith Cells Many /HPF (NEGATIVE) 05/03/21 12:20 Urine Bacteria Trace /HPF (NEGATIVE) 05/03/21 12:20 Ur Culture Indicated? Yes/culture set up 05/03/21 12:20 SARS-CoV-2 (PCR) Negative (NEGATIVE) 05/02/21 08:08 Influenza Type A (PCR) Negative (NEGATIVE) 05/02/21 08:08 Influenza Type B (PCR) Negative (NEGATIVE) 05/02/21 08:08 RSV (PCR) Negative (NEGATIVE) 05/02/21 08:08 Plan (1) Pleural effusion: Status: Acute Plan: check BNP today and again in the morning. (2) HTN (hypertension): Status: Acute Plan: Start Carvedilol 12.5 mg PO BID (3) Pneumonia: Status: Acute Qualifiers: Pneumonia type: due to unspecified organism Lung location: lower lobe of lung Plan: Continue The patient on Rocephin 1 g IV Q 12 hours and Levaquin 250 mg IV daily. (4) Back pain: Status: Acute Qualifiers: Back pain location: low back pain Chronicity: chronic Sciatica presence: without sciatica Plan: Patient will be started on hydrocodone/acetaminophen 5/325 mg po q 8 hours. (5) Closed fracture of left hip: Status: Acute Qualifiers: Encounter type: initial encounter Qualified Code(s): S72.002A - Fracture of unspecified part of neck of left femur, initial encounter for closed fracture (6) Generalized weakness: Status: Acute (7) Dehydration: Status: Resolved Plan: Change Normal saline IV to kvo. (8) Sepsis associated hypotension: Status: Resolved Plan: IV Rocephin one gram IV q 12 hours and Levaquin 250 mg IV daily. Follow up with a blood cultures once they're available. The patient is a DNR status. (9) Elevation of cardiac enzymes: Status: Acute Plan: (10) Urinary tract infection: Status: Acute Qualifiers: Qualified Code(s): N39.0 - Urinary tract infection, site not specified Plan: Intravenous Rocephin and Levaquin.
--- NOTE | 2021-05-08 16:23 | PCM.PROG ---
Progress Note Progress Note for Day of Date of Exam: 05/08/21 Subjective Subjective: This is an 85 year old white female who is a resident at [facility]. She was admitted for Sepsis likely due to urinary tract infection and community acquired pneumonia. This morning the patient is resting well. It is Noted that her blood pressure still elevated. Overall the patient looks better and we are going to start working on getting her transferred back to the residential. However, the patient is off oxygen was 93% O2 sat on room air. I will check a chest x-ray or to see if she is still having pleural effusions. If she is I will give her Lasix 40 mg IV 1 and keep her until tomorrow morning. I will plan on checking a CBC, CMP, BMP and a chest X-ray again in the morning. As long as the patient's O2 sat 94% or higher tomorrow morning, I will plan on discharging her back to the residential. Past Medical Family Social History Past Med/Fam/Surg Hx: No changes since H&P Allergies: Allergies No Known Drug Allergies Allergy (Verified 04/22/21 14:58) Review of Systems ROS: No change since H&P Vital Signs and I&O's Vital Signs: Temperature 98.3 F Pulse Rate [Apical] 78 Pulse Rate 83 Respiratory Rate 18 Blood Pressure [Right Arm] 124/58 Blood Pressure 186/75 O2 Sat by Pulse Oximetry 93 Intake and Output: Intake & Output 05/06/21 05/07/21 05/08/21 05/09/21 11:59 11:59 11:59 11:59 Intake Total 2192 / 2192 1383 / 1383 950 / 950 50 / 50 Output Total 1800 / 1800 1250 / 1250 1470 / 1470 450 / 450 Balance 392 / 392 133 / 133 -520 / -520 -400 / -400 Physical Exam Oriented: Normal Eyes: Normal Ear: Normal Nose: Normal Respiratory: Diminished Cardiovascular: Normal : Normal Auscultation: Bowel Sounds: Normal Tenderness: Normal Skin: Decreased Turgur Musculoskeletal: Hip Psychiatric: Normal and Other (resting at this time. ) Affect: Quiet Speech Pattern: Clear Laboratory and Diagnostics Result Diagrams: 05/08/21 05:20 05/08/21 05:20 Labs: 05/03/21 12:20 Urine,Clean Catch Urine Culture - Final Escherichia Coli Laboratory WBC 7.6 X10^3/uL (3.6-10.0) 05/08/21 05:20 RBC 3.08 X10^6/uL (3.5-5.4) L 05/08/21 05:20 Hgb 9.7 g/dL (12.0-16.0) L 05/08/21 05:20 Hct 28.6 % (36.0-47.0) L 05/08/21 05:20 MCV 92.6 fL (80.0-100.0) 05/08/21 05:20 MCH 31.4 pg (27.0-34.0) 05/08/21 05:20 MCHC 33.9 g/dL (33.0-35.0) 05/08/21 05:20 RDW 13.9 % (11.6-16.5) 05/08/21 05:20 Plt Count 225 X10^3/uL (150.0-450.0) 05/08/21 05:20 Plt Count Comment Adequate (ADEQUATE) 05/08/21 05:20 MPV 9.0 fL (7.4-11.0) 05/08/21 05:20 Neut % (Auto) 70.1 % (42.0-75.0) 05/08/21 05:20 Lymph % (Auto) 15.2 % (21.0-51.0) L 05/08/21 05:20 Rich % (Auto) 12.3 % (0.0-13.0) 05/08/21 05:20 Eos % (Auto) 2.0 % (0.9-2.9) 05/08/21 05:20 Baso % (Auto) 0.4 % (0.2-1.0) 05/08/21 05:20 Neut # (Auto) 5.3 x10^3/uL (2.2-4.8) H 05/08/21 05:20 Lymph # (Auto) 1.2 X10^3/uL (1.3-2.9) L 05/08/21 05:20 Rich # (Auto) 0.9 x10^3/uL (0.3-0.8) H 05/08/21 05:20 Eos # (Auto) 0.2 x10^3/uL (0.0-0.2) 05/08/21 05:20 Baso # (Auto) 0.0 X10^3/uL (0.0-0.1) 05/08/21 05:20 Absolute Nucleated RBC 0.1 /100WBC 05/08/21 05:20 Total Counted 100 05/08/21 05:20 Neutrophils % (Manual) 80 % (39-76) H 05/08/21 05:20 Band Neutrophils % 4 % (0-10) 05/08/21 05:20 Lymphocytes % (Manual) 11 % (13-43) L 05/08/21 05:20 Monocytes % (Manual) 4 % (4-9) 05/08/21 05:20 Eosinophils % (Manual) 1 % (0-6) 05/08/21 05:20 Plt Morphology Comment Normal (NORMAL) 05/08/21 05:20 RBC Morphology Abnormal (NORMAL) A 05/08/21 05:20 Helmet Cells Present 05/08/21 05:20 Sample Site Lr 05/02/21 07:49 ABG pH 7.510 (7.35-7.45) H 05/02/21 07:49 ABG pCO2 32.0 mmHg (35.0-45.0) L 05/02/21 07:49 ABG pO2 51.0 mmHg (80.0-100.0) L 05/02/21 07:49 ABG HCO3 25.5 mmol/L (22-26) 05/02/21 07:49 ABG O2 Saturation 89.0 % (90-100) L 05/02/21 07:49 ABG Base Excess 2.9 mmol/L (-2.0-2.0) H 05/02/21 07:49 Jose Test Pos 05/02/21 07:49 A-a Gradient 59.0 mmHg 05/02/21 07:49 FiO2 21.0 05/02/21 07:49 Blood Gas Comments David well cb 05/02/21 07:49 Sodium 139 mmol/L (136-145) 05/08/21 05:20 Corrected Sodium TNP 05/08/21 05:20 Potassium 4.0 mmol/L (3.5-5.1) 05/08/21 05:20 Chloride 107 mmol/L (98-107) 05/08/21 05:20 Carbon Dioxide 23.7 mmol/L (21-32) 05/08/21 05:20 BUN 15 mg/dL (7-18) 05/08/21 05:20 Creatinine 0.52 mg/dL (0.55-1.02) L 05/08/21 05:20 Est GFR (MDRD) Af Amer > 60 (>60) 05/08/21 05:20 Est GFR (MDRD) Non-Af > 60 (>60) 05/08/21 05:20 Glucose 110 mg/dL (65-99) H 05/08/21 05:20 Lactic Acid 2.3 mmol/L (0.4-2.0) H 05/02/21 18:00 Calcium 8.0 mg/dL (8.5-10.1) L 05/08/21 05:20 Corrected Calcium 9.7 mg/dL (8.5-10.1) 05/08/21 05:20 Magnesium 2.1 mg/dL (1.7-2.9) 05/07/21 14:40 Total Bilirubin 0.30 mg/dL (0.2-1.0) 05/08/21 05:20 AST 20 Units/L (15-37) 05/08/21 05:20 ALT 18 Units/L (12-78) 05/08/21 05:20 Alkaline Phosphatase 113 Units/L (46-116) 05/08/21 05:20 Creatine Kinase 143 Units/L (26-192) 05/02/21 20:26 CK-MB (CK-2) 3.6 ng/mL (0-4.0) 05/02/21 20:26 CK/CKMB % Calc 2.5 % (<4) 05/02/21 20:26 Troponin I High Sens 149.4 ng/L (4.0-60.0) H* 05/02/21 20:26 B-Natriuretic Peptide 262 pg/mL (0-79) H 05/08/21 05:20 Total Protein 4.7 g/dL (6.4-8.2) L 05/08/21 05:20 Albumin 1.9 g/dL (3.4-5.0) L 05/08/21 05:20 Globulin 2.8 g/dL (2.5-4.5) 05/08/21 05:20 Albumin/Globulin Ratio 0.7 Ratio (1.1-2.1) L 05/08/21 05:20 Specimen Type Clean catch urine 05/03/21 12:20 Urine Color Yellow (YELLOW) 05/03/21 12:20 Urine Appearance Cloudy (CLEAR) 05/03/21 12:20 Urine pH 8.0 (5.0 - 8.0) 05/03/21 12:20 Ur Specific [place] 1.010 (1.000-1.030) 05/03/21 12:20 Urine Protein 3+ (NEGATIVE) 05/03/21 12:20 Urine Glucose (UA) Negative (NEGATIVE) 05/03/21 12:20 Urine Ketones Negative (NEGATIVE) 05/03/21 12:20 Urine Occult Blood 5+ (NEGATIVE) 05/03/21 12:20 Urine Nitrite Positive (NEGATIVE) 05/03/21 12:20 Urine Bilirubin Negative (NEGATIVE) 05/03/21 12:20 Urine Urobilinogen Normal (NORMAL) 05/03/21 12:20 Ur Leukocyte Esterase 3+ (NEGATIVE) 05/03/21 12:20 Urine RBC 20-30 /HPF (0-3) A 05/03/21 12:20 Urine WBC 30-50 /HPF (0-5) A 05/03/21 12:20 Ur Squamous Epith Cells Many /HPF (NEGATIVE) 05/03/21 12:20 Urine Bacteria Trace /HPF (NEGATIVE) 05/03/21 12:20 Ur Culture Indicated? Yes/culture set up 05/03/21 12:20 SARS-CoV-2 (PCR) Negative (NEGATIVE) 05/02/21 08:08 Influenza Type A (PCR) Negative (NEGATIVE) 05/02/21 08:08 Influenza Type B (PCR) Negative (NEGATIVE) 05/02/21 08:08 RSV (PCR) Negative (NEGATIVE) 05/02/21 08:08 Radiology Reviewed: Yes Plan (1) Hypoxia: Status: Acute Narrative Support Text: I suspect that the patient's mild hypoxia is related to your bilateral pleural effusions which is worse on the right compared to the left. Plan: Continued diuresis with IV Lasix. Daily BMPs. (2) Pleural effusion: Status: Acute Narrative Support Text: Patient does not have any significant complaints of dyspnea at this time. Plan: Check BNP today and again in the morning. Check chest x-ray today. (3) HTN (hypertension): Status: Acute Plan: Start Carvedilol 12.5 mg PO BID (4) Pneumonia: Status: Acute Qualifiers: Pneumonia type: due to unspecified organism Lung location: lower lobe of lung Plan: Continue The patient on Rocephin 1 g IV Q 12 hours and Levaquin 250 mg IV daily. (5) Back pain: Status: Acute Qualifiers: Back pain location: low back pain Chronicity: chronic Sciatica pr esence: without sciatica Plan: Patient will be started on hydrocodone/acetaminophen 5/325 mg po q 8 hours. (6) Closed fracture of left hip: Status: Acute Qualifiers: Encounter type: initial encounter Qualified Code(s): S72.002A - Fracture of unspecified part of neck of left femur, initial encounter for closed fracture (7) Generalized weakness: Status: Acute (8) Dehydration: Status: Resolved Plan: Change Normal saline IV to kvo. (9) Sepsis associated hypotension: Status: Resolved Plan: IV Rocephin one gram IV q 12 hours and Levaquin 250 mg IV daily. Follow up with a blood cultures once they're available. The patient is a DNR status. (10) Elevation of cardiac enzymes: Status: Acute Plan: (11) Urinary tract infection: Status: Acute Qualifiers: Qualified Code(s): N39.0 - Urinary tract infection, site not specified Plan: Intravenous Rocephin and Levaquin.
[2021-05-09] MEDS: NORCO 5/325 MG TAB PO SCH ×2 (03:55→10:10)
[2021-05-09 05:01] LABS: BASOPHILS % (AUTO) 0.5 % (0.2-1.0); EOSINOPHILS # (AUTO) 0.1 x10^3/uL (0.0-0.2); EOSINOPHILS % (AUTO) 1.1 % (0.9-2.9); HEMATOCRIT 27.4 % (36.0-47.0); HEMOGLOBIN 9.5 g/dL (12.0-16.0); LYMPHOCYTES # (AUTO) 1.2 X10^3/uL (1.3-2.9); LYMPHOCYTES % (AUTO) 14.8 % (21.0-51.0); MEAN CORPUSCULAR HGB CONC 34.7 g/dL (33.0-35.0); MEAN PLATELET VOLUME 7.9 fL (7.4-11.0); MONOCYTES # (AUTO) 0.9 x10^3/uL (0.3-0.8); MONOCYTES % (AUTO) 10.8 % (0.0-13.0); NEUTROPHILS # (AUTO) 5.9 x10^3/uL (2.2-4.8); NEUTROPHILS % (AUTO) 72.8 % (42.0-75.0); RED BLOOD COUNT 2.98 X10^6/uL (3.5-5.4); RED CELL DISTRIBUTION WIDTH 14.1 % (11.6-16.5); WHITE BLOOD COUNT 8.1 X10^3/uL (3.6-10.0)
[2021-05-09 05:08] LABS: ALANINE AMINOTRANSFERASE 14 Units/L (12-78); ALBUMIN 1.8 g/dL (3.4-5.0); ALKALINE PHOSPHATASE 111 Units/L (46-116); ASPARTATE AMINO TRANSFERASE 15 Units/L (15-37); BLOOD UREA NITROGEN 17 mg/dL (7-18); CALCIUM 7.9 mg/dL (8.5-10.1); CARBON DIOXIDE 28.9 mmol/L (21-32); CHLORIDE 105 mmol/L (98-107); COR CA(FOR HYPOALB) 9.7 mg/dL (8.5-10.1); CREATININE 0.55 mg/dL (0.55-1.02); SODIUM 138 mmol/L (136-145); TOTAL PROTEIN 4.7 g/dL (6.4-8.2); eGFR NON BLACK RACES > 60 (>60)
[2021-05-09 05:57] LABS: BAND NEUTROPHILS % 5 % (0-10); METAMYELOCYTES % 2; PLATELET MORPHOLOGY COMMENT NORMAL (NORMAL)
[2021-05-09] MEDS: XOPENEX 1.25 MG/3 ML NEBULE NEB SCH (06:13)
[2021-05-09] MEDS: MEGACE PO SCH (08:58)
[2021-05-09] MEDS: ELIQUIS PO SCH (08:59)
[2021-05-09] MEDS: COREG TAB 12.5 MG PO SCH (08:59)
[2021-05-09] MEDS: XANAX PO SCH (09:00)
[2021-05-09 10:32] VITALS: BP 132/60
[2021-05-09] MEDS: ROCEPHIN 1 GRAM IV PREMIX 1 G/50 ML IV.SOLN. IV SCH (10:53)
[2021-05-09] MEDS ORDERED: LEVAQUIN TAB 250 MG PO NR (11:00)
--- NOTE | 2021-08-02 19:50 | PCM.DCPLAN ---
DISCHARGE SUMMARY Admission Date Date of Admission: 05/02/21 Discharge Date Discharge Date: 05/09/21 Admission Diagnoses (1) Hypoxia: Status: Acute (2) Pleural effusion: Status: Acute (3) HTN (hypertension): Status: Acute (4) Pneumonia: Status: Acute (5) Back pain: Status: Acute (6) Closed fracture of left hip: Status: Acute (7) Generalized weakness: Status: Acute (8) Dehydration: Status: Resolved (9) Sepsis associated hypotension: Status: Resolved (10) Elevation of cardiac enzymes: Status: Acute (11) Urinary tract infection: Status: Acute Discharge Diagnoses Discharge Diagnosis: 1. Urinary tract infection secondary to E. coli 2. Dehydration now resolved. 3. Hypoxia secondary to possible underlying pneumonia. 4. Sepsis associated with UTI resolved. 5. Elevated cardiac enzymes normalized. 6. Closed fracture of the left hip stable 7. Hypertension stable 8. Hypotension resolved secondary to sepsis. 9. Chronic back pain stable Discharge Medications Discharge Medications: Home Medication List Eliquis 2.5 mg PO BID 05/02/21 [History] metoprolol succinate 50 mg PO DAILY #30 tab 05/07/21 [Rx] [facility] Vital Signs: Temperature 98 F Pulse Rate [Apical] 85 Pulse Rate 85 Respiratory Rate 18 Blood Pressure [Right Arm] 132/60 Blood Pressure 186/75 O2 Sat by Pulse Oximetry 93 Latest Lab Results: Laboratory Last Values WBC 8.1 X10^3/uL (3.6-10.0) 05/09/21 04:05 RBC 2.98 X10^6/uL (3.5-5.4) L 05/09/21 04:05 Hgb 9.5 g/dL (12.0-16.0) L 05/09/21 04:05 Hct 27.4 % (36.0-47.0) L 05/09/21 04:05 MCV 92.0 fL (80.0-100.0) 05/09/21 04:05 MCH 32.0 pg (27.0-34.0) 05/09/21 04:05 MCHC 34.7 g/dL (33.0-35.0) 05/09/21 04:05 RDW 14.1 % (11.6-16.5) 05/09/21 04:05 Plt Count 271 X10^3/uL (150.0-450.0) 05/09/21 04:05 Plt Count Comment Adequate (ADEQUATE) 05/09/21 04:05 MPV 7.9 fL (7.4-11.0) 05/09/21 04:05 Neut % (Auto) 72.8 % (42.0-75.0) 05/09/21 04:05 Lymph % (Auto) 14.8 % (21.0-51.0) L 05/09/21 04:05 [place] % (Auto) 10.8 % (0.0-13.0) 05/09/21 04:05 Eos % (Auto) 1.1 % (0.9-2.9) 05/09/21 04:05 Baso % (Auto) 0.5 % (0.2-1.0) 05/09/21 04:05 Neut # (Auto) 5.9 x10^3/uL (2.2-4.8) H 05/09/21 04:05 Lymph # (Auto) 1.2 X10^3/uL (1.3-2.9) L 05/09/21 04:05 [place] # (Auto) 0.9 x10^3/uL (0.3-0.8) H 05/09/21 04:05 Eos # (Auto) 0.1 x10^3/uL (0.0-0.2) 05/09/21 04:05 Baso # (Auto) 0.0 X10^3/uL (0.0-0.1) 05/09/21 04:05 Absolute Nucleated RBC 0.0 /100WBC 05/09/21 04:05 Total Counted 100 05/09/21 04:05 Neutrophils % (Manual) 72 % (39-76) 05/09/21 04:05 Band Neutrophils % 5 % (0-10) 05/09/21 04:05 Lymphocytes % (Manual) 9 % (13-43) L 05/09/21 04:05 Monocytes % (Manual) 12 % (4-9) H 05/09/21 04:05 Eosinophils % (Manual) 1 % (0-6) 05/08/21 05:20 Metamyelocytes % 2 05/09/21 04:05 Plt Morphology Comment Normal (NORMAL) 05/09/21 04:05 RBC Morphology Normal (NORMAL) 05/09/21 04:05 Helmet Cells Present 05/08/21 05:20 Sample Site Lr 05/02/21 07:49 ABG pH 7.510 (7.35-7.45) H 05/02/21 07:49 ABG pCO2 32.0 mmHg (35.0-45.0) L 05/02/21 07:49 ABG pO2 51.0 mmHg (80.0-100.0) L 05/02/21 07:49 ABG HCO3 25.5 mmol/L (22-26) 05/02/21 07:49 ABG O2 Saturation 89.0 % (90-100) L 05/02/21 07:49 ABG Base Excess 2.9 mmol/L (-2.0-2.0) H 05/02/21 07:49 Jose Test Pos 05/02/21 07:49 A-a Gradient 59.0 mmHg 05/02/21 07:49 FiO2 21.0 05/02/21 07:49 Blood Gas Comments David well cb 05/02/21 07:49 Sodium 138 mmol/L (136-145) 05/09/21 04:05 Corrected Sodium TNP 05/09/21 04:05 Potassium 3.8 mmol/L (3.5-5.1) 05/09/21 04:05 Chloride 105 mmol/L (98-107) 05/09/21 04:05 Carbon Dioxide 28.9 mmol/L (21-32) 05/09/21 04:05 BUN 17 mg/dL (7-18) 05/09/21 04:05 Creatinine 0.55 mg/dL (0.55-1.02) 05/09/21 04:05 Est GFR (MDRD) Af Amer > 60 (>60) 05/09/21 04:05 Est GFR (MDRD) Non-Af > 60 (>60) 05/09/21 04:05 Glucose 98 mg/dL (65-99) 05/09/21 04:05 Lactic Acid 2.3 mmol/L (0.4-2.0) H 05/02/21 18:00 Calcium 7.9 mg/dL (8.5-10.1) L 05/09/21 04:05 Corrected Calcium 9.7 mg/dL (8.5-10.1) 05/09/21 04:05 Magnesium 2.1 mg/dL (1.7-2.9) 05/07/21 14:40 Total Bilirubin 0.30 mg/dL (0.2-1.0) 05/09/21 04:05 AST 15 Units/L (15-37) 05/09/21 04:05 ALT 14 Units/L (12-78) 05/09/21 04:05 Alkaline Phosphatase 111 Units/L (46-116) 05/09/21 04:05 Creatine Kinase 143 Units/L (26-192) 05/02/21 20:26 CK-MB (CK-2) 3.6 ng/mL (0-4.0) 05/02/21 20: CK/CKMB % Calc 2.5 % (<4) 05/02/21 20: Troponin I High Sens 149.4 ng/L (4.0-60.0) H* 05/02/21 20: B-Natriuretic Peptide 133 pg/mL (0-79) H 05/09/21 04:05 Total Protein 4.7 g/dL (6.4-8.2) L 05/09/21 04:05 Albumin 1.8 g/dL (3.4-5.0) L 05/09/21 04:05 Globulin 2.9 g/dL (2.5-4.5) 05/09/21 04:05 Albumin/Globulin Ratio 0.6 Ratio (1.1-2.1) L 05/09/21 04:05 Specimen Type Clean catch urine 05/03/21 12:20 Urine Color Yellow (YELLOW) 05/03/21 12:20 Urine Appearance Cloudy (CLEAR) 05/03/21 12:20 Urine pH 8.0 (5.0 - 8.0) 05/03/21 12:20 Ur Specific [place] 1.010 (1.000-1.030) 05/03/21 12:20 Urine Protein 3+ (NEGATIVE) 05/03/21 12:20 Urine Glucose (UA) Negative (NEGATIVE) 05/03/21 12:20 Urine Ketones Negative (NEGATIVE) 05/03/21 12:20 Urine Occult Blood 5+ (NEGATIVE) 05/03/21 12:20 Urine Nitrite Positive (NEGATIVE) 05/03/21 12:20 Urine Bilirubin Negative (NEGATIVE) 05/03/21 12:20 Urine Urobilinogen Normal (NORMAL) 05/03/21 12:20 Ur Leukocyte Esterase 3+ (NEGATIVE) 05/03/21 12:20 Urine RBC 20-30 /HPF (0-3) A 05/03/21 12:20 Urine WBC 30-50 /HPF (0-5) A 05/03/21 12:20 Ur Squamous Epith Cells Many /HPF (NEGATIVE) 05/03/21 12:20 Urine Bacteria Trace /HPF (NEGATIVE) 05/03/21 12:20 Ur Culture Indicated? Yes/culture set up 05/03/21 12:20 SARS-CoV-2 (PCR) Negative (NEGATIVE) 05/02/21 08:08 Influenza Type A (PCR) Negative (NEGATIVE) 05/02/21 08:08 Influenza Type B (PCR) Negative (NEGATIVE) 05/02/21 08:08 RSV (PCR) Negative (NEGATIVE) 05/02/21 08:08 Hospital Course: Following admission the patient was started on supplemental oxygen and IV fluid. She started empirically on IV Rocephin for the UTI. Her O2 sat came up with supplemental oxygen. The family has made her a DNR given her multitude of chronic medical problems. Her white count shot up to over 30,000 over the next couple days and after Levaquin was started has started since started trending back down. She developed hypotension but has subsequently normalized with IV antibiotics and IV fluid. She was kept for 1 week week for treatment and has since become stable again to [facility]. Instructions Forms: Precautions for COVID19 [facility] Social Distancing
--- NOTE | 2021-08-02 19:55 | DR.H&P ---
H&P History & Physical for Day of: H&P Date: 05/09/21 Chief Complaint Chief Complaint: Readmission to [facility] following 1 week hospital stay Allergies Allergies Allergy/AdvReac Type Severity Reaction Status Date / Time No Known Drug Allergies Allergy Verified 04/22/21 14:58 History of Present Illness History of Present Illness: This is a pleasant 85-year-old white female who is currently been in the hospital. [facility] for urosepsis hypoxia secondary to pneumonia. She has received a week of IV antibiotics and IV fluid. She is currently a DNR and stable to be readmitted to the custodial so she can resume inpatient physical therapy if she is able to tolerate it. Past Medical History Past Medical History: Anxiety, Dementia and Hypertension Past Surgical History Surgical History: Ortho Surgery Additional Surgical History: corneal x 2 Family History Family Medical History: Diabetes Mellitus, Cancer and Hypertension Social History Does patient currently use any type of tobacco product: No Have you used tobacco products in the last 12 months: No Type of Tobacco Use: None Does any household member use tobacco: No Alcohol Use: None Drug Use: None Medications Home Medications: No Known Drug Allergies Allergy (Verified 04/22/21 14:58) CONTINUE taking the following medications Eliquis 2.5 mg PO BID 05/02/21 [History] New Prescriptions metoprolol succinate 50 mg PO DAILY #30 tab 05/07/21 [Rx] Labs Result Diagrams: 05/09/21 04:05 05/09/21 04:05 Labs: 05/03/21 12:20 Urine,Clean Catch Urine Culture - Final Escherichia Coli Laboratory WBC 8.1 X10^3/uL (3.6-10.0) 05/09/21 04:05 RBC 2.98 X10^6/uL (3.5-5.4) L 05/09/21 04:05 Hgb 9.5 g/dL (12.0-16.0) L 05/09/21 04:05 Hct 27.4 % (36.0-47.0) L 05/09/21 04:05 MCV 92.0 fL (80.0-100.0) 05/09/21 04:05 MCH 32.0 pg (27.0-34.0) 05/09/21 04:05 MCHC 34.7 g/dL (33.0-35.0) 05/09/21 04:05 RDW 14.1 % (11.6-16.5) 05/09/21 04:05 Plt Count 271 X10^3/uL (150.0-450.0) 05/09/21 04:05 Plt Count Comment Adequate (ADEQUATE) 05/09/21 04:05 MPV 7.9 fL (7.4-11.0) 05/09/21 04:05 Neut % (Auto) 72.8 % (42.0-75.0) 05/09/21 04:05 Lymph % (Auto) 14.8 % (21.0-51.0) L 05/09/21 04:05 [place] % (Auto) 10.8 % (0.0-13.0) 05/09/21 04:05 Eos % (Auto) 1.1 % (0.9-2.9) 05/09/21 04:05 Baso % (Auto) 0.5 % (0.2-1.0) 05/09/21 04:05 Neut # (Auto) 5.9 x10^3/uL (2.2-4.8) H 05/09/21 04:05 Lymph # (Auto) 1.2 X10^3/uL (1.3-2.9) L 05/09/21 04:05 [place] # (Auto) 0.9 x10^3/uL (0.3-0.8) H 05/09/21 04:05 Eos # (Auto) 0.1 x10^3/uL (0.0-0.2) 05/09/21 04:05 Baso # (Auto) 0.0 X10^3/uL (0.0-0.1) 05/09/21 04:05 Absolute Nucleated RBC 0.0 /100WBC 05/09/21 04:05 Total Counted 100 05/09/21 04:05 Neutrophils % (Manual) 72 % (39-76) 05/09/21 04:05 Band Neutrophils % 5 % (0-10) 05/09/21 04:05 Lymphocytes % (Manual) 9 % (13-43) L 05/09/21 04:05 Monocytes % (Manual) 12 % (4-9) H 05/09/21 04:05 Eosinophils % (Manual) 1 % (0-6) 05/08/21 05:20 Metamyelocytes % 2 05/09/21 04:05 Plt Morphology Comment Normal (NORMAL) 05/09/21 04:05 RBC Morphology Normal (NORMAL) 05/09/21 04:05 Helmet Cells Present 05/08/21 05:20 Sample Site Lr 05/02/21 07:49 ABG pH 7.510 (7.35-7.45) H 05/02/21 07:49 ABG pCO2 32.0 mmHg (35.0-45.0) L 05/02/21 07:49 ABG pO2 51.0 mmHg (80.0-100.0) L 05/02/21 07:49 ABG HCO3 25.5 mmol/L (22-26) 05/02/21 07:49 ABG O2 Saturation 89.0 % (90-100) L 05/02/21 07:49 ABG Base Excess 2.9 mmol/L (-2.0-2.0) H 05/02/21 07:49 Jose Test Pos 05/02/21 07:49 A-a Gradient 59.0 mmHg 05/02/21 07:49 FiO2 21.0 05/02/21 07:49 Blood Gas Comments David well cb 05/02/21 07:49 Sodium 138 mmol/L (136-145) 05/09/21 04:05 Corrected Sodium TNP 05/09/21 04:05 Potassium 3.8 mmol/L (3.5-5.1) 05/09/21 04:05 Chloride 105 mmol/L (98-107) 05/09/21 04:05 Carbon Dioxide 28.9 mmol/L (21-32) 05/09/21 04:05 BUN 17 mg/dL (7-18) 05/09/21 04:05 Creatinine 0.55 mg/dL (0.55-1.02) 05/09/21 04:05 Est GFR (MDRD) Af Amer > 60 (>60) 05/09/21 04:05 Est GFR (MDRD) Non-Af > 60 (>60) 05/09/21 04:05 Glucose 98 mg/dL (65-99) 05/09/21 04:05 Lactic Acid 2.3 mmol/L (0.4-2.0) H 05/02/21 18:00 Calcium 7.9 mg/dL (8.5-10.1) L 05/09/21 04:05 Corrected Calcium 9.7 mg/dL (8.5-10.1) 05/09/21 04:05 Magnesium 2.1 mg/dL (1.7-2.9) 05/07/21 14:40 Total Bilirubin 0.30 mg/dL (0.2-1.0) 05/09/21 04:05 AST 15 Units/L (15-37) 05/09/21 04:05 ALT 14 Units/L (12-78) 05/09/21 04:05 Alkaline Phosphatase 111 Units/L (46-116) 05/09/21 04:05 Creatine Kinase 143 Units/L (26-192) 05/02/21 20:26 CK-MB (CK-2) 3.6 ng/mL (0-4.0) 05/02/21 20:26 CK/CKMB % Calc 2.5 % (<4) 05/02/21 20:26 Troponin I High Sens 149.4 ng/L (4.0-60.0) H* 05/02/21 20:26 B-Natriuretic Peptide 133 pg/mL (0-79) H 05/09/21 04:05 Total Protein 4.7 g/dL (6.4-8.2) L 05/09/21 04:05 Albumin 1.8 g/dL (3.4-5.0) L 05/09/21 04:05 Globulin 2.9 g/dL (2.5-4.5) 05/09/21 04:05 Albumin/Globulin Ratio 0.6 Ratio (1.1-2.1) L 05/09/21 04:05 Specimen Type Clean catch urine 05/03/21 12:20 Urine Color Yellow (YELLOW) 05/03/21 12:20 Urine Appearance Cloudy (CLEAR) 05/03/21 12:20 Urine pH 8.0 (5.0 - 8.0) 05/03/21 12:20 Ur Specific [place] 1.010 (1.000-1.030) 05/03/21 12:20 Urine Protein 3+ (NEGATIVE) 05/03/21 12:20 Urine Glucose (UA) Negative (NEGATIVE) 05/03/21 12:20 Urine Ketones Negative (NEGATIVE) 05/03/21 12:20 Urine Occult Blood 5+ (NEGATIVE) 05/03/21 12:20 Urine Nitrite Positive (NEGATIVE) 05/03/21 12:20 Urine Bilirubin Negative (NEGATIVE) 05/03/21 12:20 Urine Urobilinogen Normal (NORMAL) 05/03/21 12:20 Ur Leukocyte Esterase 3+ (NEGATIVE) 05/03/21 12:20 Urine RBC 20-30 /HPF (0-3) A 05/03/21 12:20 Urine WBC 30-50 /HPF (0-5) A 05/03/21 12:20 Ur Squamous Epith Cells Many /HPF (NEGATIVE) 05/03/21 12:20 Urine Bacteria Trace /HPF (NEGATIVE) 05/03/21 12:20 Ur Culture Indicated? Yes/culture set up 05/03/21 12:20 SARS-CoV-2 (PCR) Negative (NEGATIVE) 05/02/21 08:08 Influenza Type A (PCR) Negative (NEGATIVE) 05/02/21 08:08 Influenza Type B (PCR) Negative (NEGATIVE) 05/02/21 08:08 RSV (PCR) Negative (NEGATIVE) 05/02/21 08:08 Review of Systems Constitutional: No Symptoms Reported Eyes: No Symptoms Reported ENT: No Symptoms Reported Respiratory: No Symptoms Reported Cardiovascular: No Symptoms Reported Gastrointestinal: No Symptoms Reported Genitourinary: No Symptoms Reported Musculoskeletal: Back Pain and Leg Pain Skin: No Symptoms Reported Neurological: No Symptoms Reported Physical Exam Vital Signs: Temperature 98 F Pulse Rate [Apical] 85 Pulse Rate 85 Respiratory Rate 18 Blood Pressure [Right Arm] 132/60 Blood Pressure 186/75 O2 Sat by Pulse Oximetry 93 Oriented: Normal Eyes: Normal Ear: Normal Nose: Normal Throat: Normal Respiratory: Clear Throughout Cardiovascular: Normal : Normal Auscultation: Bowel Sounds: Normal Palpation: Normal Tenderness: Normal Skin: Normal Musculoskeletal: Left and Hip Psychiatric: Normal Mood Description: Calm Affect: Normal Speech Pattern: Appropriate Assessment/Plan (1) Hypoxia: Status: Acute (2) Pleural effusion: Status: Acute (3) HTN (hypertension): Status: Acute (4) Pneumonia: Qualifiers: Pneumonia type: due to unspecified organism Lung location: lower lobe of lung Status: Acute (5) Back pain: Qualifiers: Back pain location: low back pain Chronicity: chronic Sciatica presence: without sciatica Status: Acute (6) Closed fracture of left hip: Qualifiers: Encounter type: initial encounter Qualified Code(s): S72.002A - Fracture of unspecified part of neck of left femur, initial encounter for closed fracture Status: Acute (7) Generalized weakness: Status: Acute (8) Dehydration: Status: Resolved (9) Sepsis associated hypotension: Status: Resolved (10) Elevation of cardiac enzymes: Status: Acute (11) Urinary tract infection: Qualifiers: Qualified Code(s): N39.0 - Urinary tract infection, site not specified Status: Acute Review H&P Reviewed: Yes Patient was examined?: Yes
== END 2021-05-09 11:05 | DRG 871 ==
LOC: ER 07:30 → ICU 09:48 → ER 10:55 → MED/SURG 05-05 16:36
PROVIDERS: ADMIT Family Medicine; ATTEND Family Medicine
DX: J90 Pleural effusion, not elsewhere classified; R26.89 Other abnormalities of gait and mobility; M54.9 Dorsalgia, unspecified; R06.02 Shortness of breath; R94.31 Abnormal electrocardiogram [ECG] [EKG]; Z20.822 Contact with and (suspected) exposure to COVID-19; E86.0 Dehydration; S72.002A Fracture of unspecified part of neck of left femur, initial encounter for closed fracture; A41.89 Other specified sepsis; R53.1 Weakness; R74.8 Abnormal levels of other serum enzymes; B96.29 Other Escherichia coli [E. coli] as the cause of diseases classified elsewhere; R63.0 Anorexia; N39.0 Urinary tract infection, site not specified; J18.8 Other pneumonia, unspecified organism

== ENCOUNTER 2021-05-19 13:26 | Observation (INO) ==
[2021-05-19] MEDS ORDERED: NS 1,000 ML IV 1,000 ML ONE (13:47)
[2021-05-19] MEDS ORDERED: NS 100 ML IV 100 ML ONE (13:47)
[2021-05-19] MEDS ORDERED: ANCEF VIAL 1 GRAM ONE ×2 (13:58→15:09)
[2021-05-19] MEDS ORDERED: ROBINUL ONE (14:07)
[2021-05-19] MEDS ORDERED: NEO-SYNEPHRINE INJ ONE (14:07)
[2021-05-19] MEDS ORDERED: PRECEDEX INJ VIAL IVP ONE (14:07)
[2021-05-19] MEDS ORDERED: ZEMURON 100 MG VIAL ONE (14:07)
[2021-05-19] MEDS ORDERED: DIPRIVAN VIAL 20 ML ONE (14:07)
[2021-05-19] MEDS ORDERED: AMIDATE INJ 40 MG VIAL ONE (14:14)
[2021-05-19] MEDS ORDERED: KETAMINE HCL ONE (14:27)
[2021-05-19] MEDS ORDERED: FENTANYL VIAL INJ 100 mcg ONE (14:27)
[2021-05-19] MEDS ORDERED: VASOSTRICT INJ 20 UNITS VIAL ONE (15:07)
[2021-05-19] MEDS ORDERED: BETADINE SOLN ONE (15:31)
[2021-05-19] MEDS ORDERED: VANCOMYCIN HCL ONE ×2 (15:43→15:57)
[2021-05-19] MEDS ORDERED: BRIDION ONE (16:01)
[2021-05-19] MEDS ORDERED: DILAUDID INJ IVP PRN (16:36)
[2021-05-19] MEDS ORDERED: BARHEMSYS INJ IVP PRN (16:36)
[2021-05-19] MEDS ORDERED: ZOFRAN INJ 4 MG VIAL IVP PRN ×2 (16:36→16:40)
[2021-05-19] MEDS ORDERED: NORCO 5/325 MG TAB PO PRN (16:38)
[2021-05-19] MEDS ORDERED: APRESOLINE INJ 20 MG VIAL ONE (16:54)
[2021-05-19] MEDS: LR 1,000 ML IV 1,000 ML IV SCH (18:33)
[2021-05-19] MEDS ORDERED: PHARMACY CONSULT LTC MEDICATIONS XX SCH (19:00)
[2021-05-19] MEDS ORDERED: ULTANE GAS IN ONE (19:39)
[2021-05-19] MEDS: MORPHINE SULFATE INJ 2 MG INJ IVP PRN (20:40)
[2021-05-20] MEDS ORDERED: BUTT CREAM (COMPOUND) ONE (04:12)
[2021-05-20] MEDS: MORPHINE SULFATE INJ 2 MG INJ IVP PRN ×2 (04:35→12:49)
[2021-05-20 04:43] LABS: BILIRUBIN,URINE NEGATIVE (NEGATIVE); BLOOD/HEMOGLOBIN,URINE NEGATIVE (NEGATIVE); GLUCOSE, URINE NEGATIVE (NEGATIVE); KETONES,URINE NEGATIVE (NEGATIVE); LEUKOCYTE ESTERASE ,URINE 1+ (NEGATIVE); NITRITES,URINE NEGATIVE (NEGATIVE); PROTEIN,URINE 1+ (NEGATIVE); UROBILINOGEN,URINE NORMAL (NORMAL)
[2021-05-20 04:50] LABS: APPEARANCE,URINE CLEAR (CLEAR); BACTERIA,URINE NEGATIVE /HPF (NEGATIVE); CALCIUM OXALATE CRYSTALS,UR FEW /HPF (NEGATIVE); COLOR,URINE YELLOW (YELLOW); RBC,URINE NONE SEEN /HPF (0-3); SQUAMOUS EPITHELIAL CELL,UR RARE /HPF (NEGATIVE)
[2021-05-20 04:51] LABS: YEAST,URINE NUMEROUS /HPF (NEGATIVE)
[2021-05-20 06:24] LABS: BASOPHILS # (AUTO) 0.1 X10^3/uL (0.0-0.1); BASOPHILS % (AUTO) 0.6 % (0.2-1.0); EOSINOPHILS % (AUTO) 0.3 % (0.9-2.9); HEMATOCRIT 23.9 % (36.0-47.0); HEMOGLOBIN 8.3 g/dL (12.0-16.0); LYMPHOCYTES # (AUTO) 1.2 X10^3/uL (1.3-2.9); LYMPHOCYTES % (AUTO) 14.4 % (21.0-51.0); MEAN CORPUSCULAR HEMOGLOBIN 32.1 pg (27.0-34.0); MEAN CORPUSCULAR HGB CONC 34.5 g/dL (33.0-35.0); MEAN PLATELET VOLUME 7.4 fL (7.4-11.0); MONOCYTES # (AUTO) 0.7 x10^3/uL (0.3-0.8); MONOCYTES % (AUTO) 8.1 % (0.0-13.0); NEUTROPHILS # (AUTO) 6.5 x10^3/uL (2.2-4.8); NEUTROPHILS % (AUTO) 76.6 % (42.0-75.0); RED BLOOD COUNT 2.57 X10^6/uL (3.5-5.4); RED CELL DISTRIBUTION WIDTH 14.9 % (11.6-16.5); WHITE BLOOD COUNT 8.5 X10^3/uL (3.6-10.0)
[2021-05-20] MEDS ORDERED: BUTT CREAM (COMPOUND) TOP PRN (06:26)
[2021-05-20] MEDS: LR 1,000 ML IV 1,000 ML IV SCH ×3 (06:33→17:58)
[2021-05-20 06:34] LABS: BLOOD UREA NITROGEN 21 mg/dL (7-18); CALCIUM 8.3 mg/dL (8.5-10.1); CARBON DIOXIDE 24.7 mmol/L (21-32); CHLORIDE 104 mmol/L (98-107); CREATININE 0.51 mg/dL (0.55-1.02); SODIUM 135 mmol/L (136-145); eGFR NON BLACK RACES > 60 (>60)
[2021-05-20] MEDS ORDERED: NORCO 7.5/325 MG TAB PO PRN (08:26)
[2021-05-20] MEDS: DIFLUCAN PO SCH (12:49)
[2021-05-20] MEDS: ELIQUIS PO SCH ×2 (12:49→21:35)
[2021-05-20] MEDS: NEURONTIN CAP 400 MG PO SCH ×3 (12:49→22:50)
[2021-05-20] MEDS: TOPROL XL PO SCH (12:49)
[2021-05-20] MEDS: XANAX PO SCH ×2 (12:49→21:40)
--- NOTE | 2021-05-20 14:33 | DR.H&P ---
H&P History & Physical for Day of: H&P Date: 05/19/21 Chief Complaint Chief Complaint: Left hip pain Allergies Allergies Allergy/AdvReac Type Severity Reaction Status Date / Time No Known Drug Allergies Allergy Verified 04/22/21 14:58 History of Present Illness History of Present Illness: This is an 85-year-old white female who just underwent open reduction of the left bipolar prosthesis from a dislocation. Orthopedic surgeon Dr. Tanvir Blue thought it best to watch her overnight. During the open reduction he found a large blood clot in which he cultured. She will be admitted for pain control and to also let her anesthesia wear off prior to going back to [facility]. Past Medical History Past Medical History: Anxiety, Dementia and Hypertension Past Surgical History Surgical History: Ortho Surgery Additional Surgical History: corneal x 2 Family History Family Medical History: Diabetes Mellitus, Cancer and Hypertension Social History Does patient currently use any type of tobacco product: No Have you used tobacco products in the last 12 months: No Does any household member use tobacco: No Alcohol Use: None Drug Use: None Medications Home Medications: No Known Drug Allergies Allergy (Verified 04/22/21 14:58) CONTINUE taking the following medications alprazolam [Xanax] 0.125 mg PO BID 05/19/21 [History] gabapentin 400 mg PO TID 05/19/21 [History] hydrocodone-acetaminophen [[place]] 1 tab PO Q4H PRN 05/19/21 [History] levofloxacin [Levaquin] 250 mg PO DAILY 05/19/21 [History] Labs Result Diagrams: 05/20/21 05:54 05/20/21 05:54 Labs: 05/19/21 15:50 Hip - Left Wound Gram Stain - Final 05/19/21 15:50 Hip - Left Wound Culture - Preliminary Laboratory WBC 8.5 X10^3/uL (3.6-10.0) 05/20/21 05:54 RBC 2.57 X10^6/uL (3.5-5.4) L 05/20/21 05:54 Hgb 8.3 g/dL (12.0-16.0) L 05/20/21 05:54 Hct 23.9 % (36.0-47.0) L 05/20/21 05:54 MCV 93.0 fL (80.0-100.0) 05/20/21 05:54 MCH 32.1 pg (27.0-34.0) 05/20/21 05:54 MCHC 34.5 g/dL (33.0-35.0) 05/20/21 05:54 RDW 14.9 % (11.6-16.5) 05/20/21 05:54 Plt Count 304 X10^3/uL (150.0-450.0) 05/20/21 05:54 MPV 7.4 fL (7.4-11.0) 05/20/21 05:54 Neut % (Auto) 76.6 % (42.0-75.0) H 05/20/21 05:54 Lymph % (Auto) 14.4 % (21.0-51.0) L 05/20/21 05:54 [place] % (Auto) 8.1 % (0.0-13.0) 05/20/21 05:54 Eos % (Auto) 0.3 % (0.9-2.9) L 05/20/21 05:54 Baso % (Auto) 0.6 % (0.2-1.0) 05/20/21 05:54 Neut # (Auto) 6.5 x10^3/uL (2.2-4.8) H 05/20/21 05:54 Lymph # (Auto) 1.2 X10^3/uL (1.3-2.9) L 05/20/21 05:54 [place] # (Auto) 0.7 x10^3/uL (0.3-0.8) 05/20/21 05:54 Eos # (Auto) 0.0 x10^3/uL (0.0-0.2) 05/20/21 05:54 Baso # (Auto) 0.1 X10^3/uL (0.0-0.1) 05/20/21 05:54 Absolute Nucleated RBC 0.0 /100WBC 05/20/21 05:54 Sodium 135 mmol/L (136-145) L 05/20/21 05:54 Corrected Sodium TNP 05/20/21 05:54 Potassium 4.3 mmol/L (3.5-5.1) 05/20/21 05:54 Chloride 104 mmol/L (98-107) 05/20/21 05:54 Carbon Dioxide 24.7 mmol/L (21-32) 05/20/21 05:54 BUN 21 mg/dL (7-18) H 05/20/21 05:54 Creatinine 0.51 mg/dL (0.55-1.02) L 05/20/21 05:54 Est GFR (MDRD) Af Amer > 60 (>60) 05/20/21 05:54 Est GFR (MDRD) Non-Af > 60 (>60) 05/20/21 05:54 Glucose 99 mg/dL (65-99) 05/20/21 05:54 Calcium 8.3 mg/dL (8.5-10.1) L 05/20/21 05:54 C-Reactive Protein 37.80 mg/L (0-3.0) H 05/20/21 05:54 Specimen Type Catherized urine 05/20/21 04:15 Urine Color Yellow (YELLOW) 05/20/21 04:15 Urine Appearance Clear (CLEAR) 05/20/21 04:15 Urine pH 6.0 (5.0 - 8.0) 05/20/21 04:15 Ur Specific [place] 1.020 (1.000-1.030) 05/20/21 04:15 Urine Protein 1+ (NEGATIVE) 05/20/21 04:15 Urine Glucose (UA) Negative (NEGATIVE) 05/20/21 04:15 Urine Ketones Negative (NEGATIVE) 05/20/21 04:15 Urine Blood Negative (NEGATIVE) 05/20/21 04:15 Urine Nitrite Negative (NEGATIVE) 05/20/21 04:15 Urine Bilirubin Negative (NEGATIVE) 05/20/21 04:15 Urine Urobilinogen Normal (NORMAL) 05/20/21 04:15 Ur Leukocyte Esterase 1+ (NEGATIVE) 05/20/21 04:15 Urine RBC None seen /HPF (0-3) 05/20/21 04:15 Urine WBC 0-2 /HPF (0-5) 05/20/21 04:15 Ur Squamous Epith Cells Rare /HPF (NEGATIVE) 05/20/21 04:15 Calcium Oxalate Crystal Few /HPF (NEGATIVE) 05/20/21 04:15 Urine Bacteria Negative /HPF (NEGATIVE) 05/20/21 04:15 Urine Yeast Numerous /HPF (NEGATIVE) 03/29/22 04:15 Ur Culture Indicated? Yes/culture set up 05/20/21 04:15 Review of Systems Constitutional: Weakness Eyes: No Symptoms Reported ENT: No Symptoms Reported Respiratory: No Symptoms Reported Cardiovascular: No Symptoms Reported Gastrointestinal: No Symptoms Reported Genitourinary: No Symptoms Reported Musculoskeletal: Leg Pain and Other (Left hip pain) Skin: No Symptoms Reported Neurological: No Symptoms Reported Physical Exam Vital Signs: Temperature 98.8 F Pulse Rate [Right Radial] 75 Pulse Rate 94 Respiratory Rate 20 Blood Pressure [Right Arm] 148/60 Blood Pressure 160/70 O2 Sat by Pulse Oximetry 94 Oriented: Unable to test Eyes: Normal Ear: Normal Nose: Normal Throat: Normal Respiratory: Clear Throughout Cardiovascular: Normal : Normal Auscultation: Bowel Sounds: Normal Palpation: Normal Tenderness: Normal Skin: Normal Musculoskeletal: Left and Hip (Wound VAC in place as well as dressings.) Psychiatric: Normal Mood Description: Calm Affect: Normal Assessment/Plan (1) HTN (hypertension): Status: Acute Plan: Motor the patient's blood pressure. (2) Closed fracture of left hip: Qualifiers: Encounter type: initial encounter Qualified Code(s): S72.002A - Fracture of unspecified part of neck of left femur, initial encounter for closed fracture Status: Acute (3) Left hip pain: Status: Acute Plan: Pain control status post open reduction of left hip prosthesis. (4) Dementia: Status: Acute (5) Anxiety: Status: Acute Plan: We will plan to restart her Xanax.
--- NOTE | 2021-05-20 14:51 | PCM.PROG ---
Progress Note Progress Note for Day of Date of Exam: 05/20/21 Subjective Subjective: The patient is alert and awake this morning. She does not have any complaints of pain. She has no new complaints at all this morning. It is noted that her hemoglobin has dropped to 8.3 from 10.7. I suspect that this is from hemodilution since she is receiving lactated Ringer's IV fluid. Since there is a drop in her hemoglobin I will plan on keeping her until tomorrow to make sure it does not drop any more. In the meantime we will resume her regular home medicines and follow-up with any new orders for concerns of her orthopedic surgeon, Dr. Blue. Past Medical Family Social History Allergies: Allergies No Known Drug Allergies Allergy (Verified 04/22/21 14:58) Vital Signs and I&O's Vital Signs: Temperature 98.8 F Pulse Rate [Right Radial] 75 Pulse Rate 94 Respiratory Rate 20 Blood Pressure [Right Arm] 148/60 Blood Pressure 160/70 O2 Sat by Pulse Oximetry 94 Intake and Output: Intake & Output 05/18/21 05/19/21 05/20/21 05/21/21 11:59 11:59 11:59 11:59 Intake Total 1761 / 1761 Output Total 1025 / 1025 Balance 736 / 736 Physical Exam Oriented: Unable to test Eyes: Normal Ear: Normal Nose: Normal Throat: Normal Cardiovascular: Normal : Normal Auscultation: Bowel Sounds: Normal Tenderness: Normal Skin: Normal Musculoskeletal: Left and Hip (Wound VAC in place as well as dressings.) Psychiatric: Normal Mood Description: Calm Affect: Normal Speech Pattern: Appropriate Laboratory and Diagnostics Result Diagrams: 05/20/21 05:54 05/20/21 05:54 Labs: 05/19/21 15:50 Hip - Left Wound Gram Stain - Final 05/19/21 15:50 Hip - Left Wound Culture - Preliminary Laboratory WBC 8.5 X10^3/uL (3.6-10.0) 05/20/21 05:54 RBC 2.57 X10^6/uL (3.5-5.4) L 05/20/21 05:54 Hgb 8.3 g/dL (12.0-16.0) L 05/20/21 05:54 Hct 23.9 % (36.0-47.0) L 05/20/21 05:54 MCV 93.0 fL (80.0-100.0) 05/20/21 05:54 MCH 32.1 pg (27.0-34.0) 05/20/21 05:54 MCHC 34.5 g/dL (33.0-35.0) 05/20/21 05:54 RDW 14.9 % (11.6-16.5) 05/20/21 05:54 Plt Count 304 X10^3/uL (150.0-450.0) 05/20/21 05:54 MPV 7.4 fL (7.4-11.0) 05/20/21 05:54 Neut % (Auto) 76.6 % (42.0-75.0) H 05/20/21 05:54 Lymph % (Auto) 14.4 % (21.0-51.0) L 05/20/21 05:54 [place] % (Auto) 8.1 % (0.0-13.0) 05/20/21 05:54 Eos % (Auto) 0.3 % (0.9-2.9) L 05/20/21 05:54 Baso % (Auto) 0.6 % (0.2-1.0) 05/20/21 05:54 Neut # (Auto) 6.5 x10^3/uL (2.2-4.8) H 05/20/21 05:54 Lymph # (Auto) 1.2 X10^3/uL (1.3-2.9) L 05/20/21 05:54 [place] # (Auto) 0.7 x10^3/uL (0.3-0.8) 05/20/21 05:54 Eos # (Auto) 0.0 x10^3/uL (0.0-0.2) 05/20/21 05:54 Baso # (Auto) 0.1 X10^3/uL (0.0-0.1) 05/20/21 05:54 Absolute Nucleated RBC 0.0 /100WBC 05/20/21 05:54 Sodium 135 mmol/L (136-145) L 05/20/21 05:54 Corrected Sodium TNP 05/20/21 05:54 Potassium 4.3 mmol/L (3.5-5.1) 05/20/21 05:54 Chloride 104 mmol/L (98-107) 05/20/21 05:54 Carbon Dioxide 24.7 mmol/L (21-32) 05/20/21 05:54 BUN 21 mg/dL (7-18) H 05/20/21 05:54 Creatinine 0.51 mg/dL (0.55-1.02) L 05/20/21 05:54 Est GFR (MDRD) Af Amer > 60 (>60) 05/20/21 05:54 Est GFR (MDRD) Non-Af > 60 (>60) 05/20/21 05:54 Glucose 99 mg/dL (65-99) 05/20/21 05:54 Calcium 8.3 mg/dL (8.5-10.1) L 05/20/21 05:54 C-Reactive Protein 37.80 mg/L (0-3.0) H 05/20/21 05:54 Specimen Type Catherized urine 05/20/21 04:15 Urine Color Yellow (YELLOW) 05/20/21 04:15 Urine Appearance Clear (CLEAR) 05/20/21 04:15 Urine pH 6.0 (5.0 - 8.0) 05/20/21 04:15 Ur Specific [place] 1.020 (1.000-1.030) 05/20/21 04:15 Urine Protein 1+ (NEGATIVE) 05/20/21 04:15 Urine Glucose (UA) Negative (NEGATIVE) 05/20/21 04:15 Urine Ketones Negative (NEGATIVE) 05/20/21 04:15 Urine Blood Negative (NEGATIVE) 05/20/21 04:15 Urine Nitrite Negative (NEGATIVE) 05/20/21 04:15 Urine Bilirubin Negative (NEGATIVE) 05/20/21 04:15 Urine Urobilinogen Normal (NORMAL) 05/20/21 04:15 Ur Leukocyte Esterase 1+ (NEGATIVE) 05/20/21 04:15 Urine RBC None seen /HPF (0-3) 05/20/21 04:15 Urine WBC 0-2 /HPF (0-5) 05/20/21 04:15 Ur Squamous Epith Cells Rare /HPF (NEGATIVE) 05/20/21 04:15 Calcium Oxalate Crystal Few /HPF (NEGATIVE) 05/20/21 04:15 Urine Bacteria Negative /HPF (NEGATIVE) 05/20/21 04:15 Urine Yeast Numerous /HPF (NEGATIVE) 05/20/21 04:15 Ur Culture Indicated? Yes/culture set up 05/20/21 04:15 Plan (1) HTN (hypertension): Status: Acute Plan: Motor the patient's blood pressure. I will resume the patient's metoprolol ER 50 mg by mouth daily. (2) Closed fracture of left hip: Status: Acute Qualifiers: Encounter type: initial encounter Qualified Code(s): S72.002A - Fracture of unspecified part of neck of left femur, initial encounter for closed fracture (3) Left hip pain: Status: Acute Plan: Pain control status post open reduction of left hip prosthesis. (4) Dementia: Status: Acute (5) Anxiety: Status: Acute Plan: We will plan to restart her Xanax. (6) Anemia: Status: Acute Plan: I will check an anemia panel on her.
[2021-05-21] MEDS: NEURONTIN CAP 400 MG PO SCH ×3 (05:10→22:30)
[2021-05-21] MEDS: LR 1,000 ML IV 1,000 ML IV SCH ×3 (05:19→16:46)
[2021-05-21 06:33] LABS: BASOPHILS % (AUTO) 0.5 % (0.2-1.0); EOSINOPHILS % (AUTO) 0.4 % (0.9-2.9); HEMATOCRIT 22.7 % (36.0-47.0); HEMOGLOBIN 7.4 g/dL (12.0-16.0); LYMPHOCYTES # (AUTO) 1.3 X10^3/uL (1.3-2.9); LYMPHOCYTES % (AUTO) 17.1 % (21.0-51.0); MEAN CORPUSCULAR HEMOGLOBIN 30.4 pg (27.0-34.0); MEAN CORPUSCULAR HGB CONC 32.7 g/dL (33.0-35.0); MEAN PLATELET VOLUME 7.6 fL (7.4-11.0); MONOCYTES # (AUTO) 0.7 x10^3/uL (0.3-0.8); MONOCYTES % (AUTO) 8.8 % (0.0-13.0); NEUTROPHILS # (AUTO) 5.5 x10^3/uL (2.2-4.8); NEUTROPHILS % (AUTO) 73.2 % (42.0-75.0); RED BLOOD COUNT 2.44 X10^6/uL (3.5-5.4); RED CELL DISTRIBUTION WIDTH 14.8 % (11.6-16.5); WHITE BLOOD COUNT 7.5 X10^3/uL (3.6-10.0)
[2021-05-21 07:16] LABS: ALANINE AMINOTRANSFERASE 12 Units/L (12-78); ALBUMIN 1.7 g/dL (3.4-5.0); ALKALINE PHOSPHATASE 84 Units/L (46-116); ASPARTATE AMINO TRANSFERASE 25 Units/L (15-37); BLOOD UREA NITROGEN 19 mg/dL (7-18); CALCIUM 8.7 mg/dL (8.5-10.1); CARBON DIOXIDE 25.5 mmol/L (21-32); CHLORIDE 104 mmol/L (98-107); COR CA(FOR HYPOALB) 10.5 mg/dL (8.5-10.1); CREATININE 0.48 mg/dL (0.55-1.02); SODIUM 137 mmol/L (136-145); TOTAL PROTEIN 4.6 g/dL (6.4-8.2); eGFR NON BLACK RACES > 60 (>60)
[2021-05-21] MEDS: MORPHINE SULFATE INJ 2 MG INJ IVP PRN ×2 (08:38→16:46)
[2021-05-21] MEDS: DIFLUCAN PO SCH (08:39)
[2021-05-21] MEDS: XANAX PO SCH ×2 (08:40→20:53)
[2021-05-21] MEDS: ELIQUIS PO SCH ×2 (08:41→20:50)
[2021-05-21] MEDS: TOPROL XL PO SCH (08:41)
[2021-05-21] MEDS ORDERED: VITAMIN B-12 INJ IM ONE (09:00)
[2021-05-21] MEDS: FERROUS GLUCONATE PO SCH ×2 (09:38→18:03)
--- NOTE | 2021-05-21 15:25 | PCM.PROG ---
Progress Note Progress Note for Day of Date of Exam: 05/21/21 Subjective Subjective: The patient is alert and awake this morning. She does have complaints of pain. It is noted that her hemoglobin has dropped from 8.3 to 7.4. I suspect that this is from hemodilution and recent open reduction of her left dislocated joints prosthesis. She is currently on Eliquis 2.5 mg twice a day. Since there is another drop in her hemoglobin I will plan on keeping her until tomorrow to make sure it does not drop any more. In the meantime we will resume her regular home medicines and follow-up with any new orders for concerns of her orthopedic surgeon, Dr. Blue. I Past Medical Family Social History Past Med/Fam/Surg Hx: No changes since H&P Allergies: Allergies No Known Drug Allergies Allergy (Verified 04/22/21 14:58) Review of Systems ROS: No change since H&P Vital Signs and I&O's Vital Signs: Temperature 98.1 F Pulse Rate [Right Radial] 93 Pulse Rate 94 Respiratory Rate 20 Blood Pressure [Right Arm] 111/56 Blood Pressure 160/70 O2 Sat by Pulse Oximetry 96 Intake and Output: Intake & Output 05/19/21 05/20/21 05/21/21 05/22/21 11:59 11:59 11:59 11:59 Intake Total 1761 / 1761 2040 / 2040 841 / 841 Output Total 1025 / 1025 500 / 500 Balance 736 / 736 1540 / 1540 841 / 841 Physical Exam Oriented: Normal, Time, Person and Place Eyes: Normal Ear: Normal Nose: Normal Throat: Normal Respiratory: Normal Cardiovascular: Normal : Normal Auscultation: Bowel Sounds: Normal Tenderness: Normal Skin: Normal Musculoskeletal: Left and Hip (Wound VAC in place as well as dressings.) Psychiatric: Normal Mood Description: Calm Affect: Normal Speech Pattern: Appropriate Laboratory and Diagnostics Result Diagrams: 05/21/21 05:45 05/21/21 05:45 Labs: 05/20/21 04:15 Urine,Clean Catch Urine Culture - Preliminary 05/19/21 15:50 Hip - Left Wound Gram Stain - Final 05/19/21 15:50 Hip - Left Wound Culture - Preliminary Laboratory WBC 7.5 X10^3/uL (3.6-10.0) 05/21/21 05:45 RBC 2.44 X10^6/uL (3.5-5.4) L 05/21/21 05:45 Hgb 7.4 g/dL (12.0-16.0) L 05/21/21 05:45 Hct 22.7 % (36.0-47.0) L 05/21/21 05:45 MCV 93.0 fL (80.0-100.0) 05/21/21 05:45 MCH 30.4 pg (27.0-34.0) 05/21/21 05:45 MCHC 32.7 g/dL (33.0-35.0) L 05/21/21 05:45 RDW 14.8 % (11.6-16.5) 05/21/21 05:45 Plt Count 334 X10^3/uL (150.0-450.0) 05/21/21 05:45 MPV 7.6 fL (7.4-11.0) 05/21/21 05:45 Neut % (Auto) 73.2 % (42.0-75.0) 05/21/21 05:45 Lymph % (Auto) 17.1 % (21.0-51.0) L 05/21/21 05:45 [place] % (Auto) 8.8 % (0.0-13.0) 05/21/21 05:45 Eos % (Auto) 0.4 % (0.9-2.9) L 05/21/21 05:45 Baso % (Auto) 0.5 % (0.2-1.0) 05/21/21 05:45 Neut # (Auto) 5.5 x10^3/uL (2.2-4.8) H 05/21/21 05:45 Lymph # (Auto) 1.3 X10^3/uL (1.3-2.9) 05/21/21 05:45 [place] # (Auto) 0.7 x10^3/uL (0.3-0.8) 05/21/21 05:45 Eos # (Auto) 0.0 x10^3/uL (0.0-0.2) 05/21/21 05:45 Baso # (Auto) 0.0 X10^3/uL (0.0-0.1) 05/21/21 05:45 Absolute Nucleated RBC 0.1 /100WBC 05/21/21 05:45 Sodium 137 mmol/L (136-145) 05/21/21 05:45 Corrected Sodium TNP 05/21/21 05:45 Potassium 3.9 mmol/L (3.5-5.1) 05/21/21 05:45 Chloride 104 mmol/L (98-107) 05/21/21 05:45 Carbon Dioxide 25.5 mmol/L (21-32) 05/21/21 05:45 BUN 19 mg/dL (7-18) H 05/21/21 05:45 Creatinine 0.48 mg/dL (0.55-1.02) L 05/21/21 05:45 Est GFR (MDRD) Af Amer > 60 (>60) 05/21/21 05:45 Est GFR (MDRD) Non-Af > 60 (>60) 05/21/21 05:45 Glucose 92 mg/dL (65-99) 05/21/21 05:45 Calcium 8.7 mg/dL (8.5-10.1) 05/21/21 05:45 Corrected Calcium 10.5 mg/dL (8.5-10.1) H 05/21/21 05:45 Iron 15 ug/dL (50-175) L 05/20/21 15:27 Transferrin 118 mg/dL (202-364) L 05/20/21 15:27 Ferritin 404 ng/mL (8-252) H 05/20/21 15:27 Total Bilirubin 0.60 mg/dL (0.2-1.0) 05/21/21 05:45 AST 25 Units/L (15-37) 05/21/21 05:45 ALT 12 Units/L (12-78) 05/21/21 05:45 Alkaline Phosphatase 84 Units/L (46-116) 05/21/21 05:45 C-Reactive Protein 74.70 mg/L (0-3.0) H 05/21/21 05:45 Total Protein 4.6 g/dL (6.4-8.2) L 05/21/21 05:45 Albumin 1.7 g/dL (3.4-5.0) L 05/21/21 05:45 Globulin 2.9 g/dL (2.5-4.5) 05/21/21 05:45 Albumin/Globulin Ratio 0.6 Ratio (1.1-2.1) L 05/21/21 05:45 Vitamin B12 360 pg/mL (193-986) 05/20/21 15:27 Folate 9.1 ng/mL (>8.6) 05/20/21 15:27 Specimen Type Catherized urine 05/20/21 04:15 Urine Color Yellow (YELLOW) 05/20/21 04:15 Urine Appearance Clear (CLEAR) 05/20/21 04:15 Urine pH 6.0 (5.0 - 8.0) 05/20/21 04:15 Ur Specific [place] 1.020 (1.000-1.030) 05/20/21 04:15 Urine Protein 1+ (NEGATIVE) 05/20/21 04:15 Urine Glucose (UA) Negative (NEGATIVE) 05/20/21 04:15 Urine Ketones Negative (NEGATIVE) 05/20/21 04:15 Urine Blood Negative (NEGATIVE) 05/20/21 04:15 Urine Nitrite Negative (NEGATIVE) 05/20/21 04:15 Urine Bilirubin Negative (NEGATIVE) 05/20/21 04:15 Urine Urobilinogen Normal (NORMAL) 05/20/21 04:15 Ur Leukocyte Esterase 1+ (NEGATIVE) 05/20/21 04:15 Urine RBC None seen /HPF (0-3) 05/20/21 04:15 Urine WBC 0-2 /HPF (0-5) 05/20/21 04:15 Ur Squamous Epith Cells Rare /HPF (NEGATIVE) 05/20/21 04:15 Calcium Oxalate Crystal Few /HPF (NEGATIVE) 05/20/21 04:15 Urine Bacteria Negative /HPF (NEGATIVE) 05/20/21 04:15 Urine Yeast Numerous /HPF (NEGATIVE) 05/20/21 04:15 Ur Culture Indicated? Yes/culture set up 05/20/21 04:15 Plan (1) HTN (hypertension): Status: Acute Narrative Support Text: Blood pressure is stable. Plan: Motor the patient's blood pressure. I will resume the patient's metoprolol ER 50 mg by mouth daily. (2) Closed fracture of left hip: Status: Acute Qualifiers: Encounter type: initial encounter Qualified Code(s): S72.002A - Fracture of unspecified part of neck of left femur, initial encounter for closed fracture Narrative Support Text: Patient is status post left hip surgery for prosthesis placement several weeks ago. She just underwent an open reduction for a dislocation of prosthesis per Dr. Blue. Plan: I will plan to see her back to [facility] once her hemoglobin stabilizes. (3) Left hip pain: Status: Acute Plan: Pain control status post open reduction of left hip prosthesis. (4) Dementia: Status: Acute (5) Anxiety: Status: Acute Plan: We will plan to restart her Xanax. (6) Anemia: Status: Acute Qualifiers: Anemia type: iron deficiency Narrative Support Text: Anemia panel done yesterday and indicates iron deficiency. Plan: I will start the patient on ferrous gluconate 324 mg 1 by mouth daily. I will recheck a CBC tomorrow morning.
[2021-05-22] MEDS: LR 1,000 ML IV 1,000 ML IV SCH ×2 (01:04→07:59)
[2021-05-22] MEDS: NEURONTIN CAP 400 MG PO SCH ×2 (05:44→13:10)
[2021-05-22 06:26] LABS: BASOPHILS % (AUTO) 0.5 % (0.2-1.0); EOSINOPHILS % (AUTO) 0.6 % (0.9-2.9); HEMATOCRIT 23.5 % (36.0-47.0); LYMPHOCYTES # (AUTO) 1.4 X10^3/uL (1.3-2.9); MEAN CORPUSCULAR HGB CONC 34.3 g/dL (33.0-35.0); MEAN CORPUSCULAR VOLUME 93.4 fL (80.0-100.0); MEAN PLATELET VOLUME 7.4 fL (7.4-11.0); MONOCYTES # (AUTO) 0.6 x10^3/uL (0.3-0.8); MONOCYTES % (AUTO) 9.1 % (0.0-13.0); NEUTROPHILS # (AUTO) 4.8 x10^3/uL (2.2-4.8); NEUTROPHILS % (AUTO) 69.8 % (42.0-75.0); RED BLOOD COUNT 2.52 X10^6/uL (3.5-5.4); RED CELL DISTRIBUTION WIDTH 14.8 % (11.6-16.5); WHITE BLOOD COUNT 6.9 X10^3/uL (3.6-10.0)
[2021-05-22 07:07] LABS: ALANINE AMINOTRANSFERASE 12 Units/L (12-78); ALBUMIN 1.8 g/dL (3.4-5.0); ALKALINE PHOSPHATASE 85 Units/L (46-116); ASPARTATE AMINO TRANSFERASE 24 Units/L (15-37); BLOOD UREA NITROGEN 18 mg/dL (7-18); CALCIUM 8.8 mg/dL (8.5-10.1); CARBON DIOXIDE 25.9 mmol/L (21-32); CHLORIDE 107 mmol/L (98-107); COR CA(FOR HYPOALB) 10.6 mg/dL (8.5-10.1); CREATININE 0.45 mg/dL (0.55-1.02); SODIUM 140 mmol/L (136-145); TOTAL PROTEIN 4.9 g/dL (6.4-8.2); eGFR NON BLACK RACES > 60 (>60)
[2021-05-22] MEDS: DIFLUCAN PO SCH (07:59)
[2021-05-22] MEDS: ELIQUIS PO SCH (07:59)
[2021-05-22] MEDS: TOPROL XL PO SCH (07:59)
[2021-05-22] MEDS: XANAX PO SCH (07:59)
[2021-05-22 13:02] VITALS: BP 147/67
--- NOTE | 2021-08-20 10:41 | PCM.DCPLAN ---
DISCHARGE SUMMARY Admission Date Date of Admission: 05/19/21 Discharge Date Discharge Date: 05/22/21 Admission Diagnoses (1) HTN (hypertension): Status: Acute (2) Closed fracture of left hip: Status: Acute (3) Left hip pain: Status: Acute (4) Dementia: Status: Acute (5) Anxiety: Status: Acute (6) Anemia: Status: Acute Discharge Diagnoses Discharge Diagnosis: 1. Open reduction of left hip prosthesis 2. Anemiastable 3. Anxiety 4. Dementia 5. Chronic left hip pain Discharge Medications Discharge Medications: Home Medication List alprazolam 0.25 mg tablet (Xanax) 0.125 mg PO BID 05/19/21 [History] gabapentin 400 mg capsule 400 mg PO TID 05/19/21 [History] hydrocodone 7.5 mg-acetaminophen 325 mg tablet 1 tab PO Q4H PRN 05/19/21 [History] levofloxacin 250 mg tablet 250 mg PO DAILY 05/19/21 [History] fluconazole 100 mg tablet (Diflucan) 100 mg PO ONCE #3 tabs 05/22/21 [Rx] lisinopril 10 mg tablet 10 mg PO DAILY #30 tabs 05/22/21 [Rx] Prescriptions: fluconazole [Diflucan] [facility] lisinopril [facility] Hospital Course Vital Signs: Temperature 98.9 F Pulse Rate [Right Radial] 74 Pulse Rate 94 Respiratory Rate 16 Blood Pressure [Right Arm] 147/67 Blood Pressure 160/70 O2 Sat by Pulse Oximetry 95 Latest Lab Results: Laboratory Last Values WBC 6.9 X10^3/uL (3.6-10.0) 05/22/21 05:19 RBC 2.52 X10^6/uL (3.5-5.4) L 05/22/21 05:19 Hgb 8.0 g/dL (12.0-16.0) L 05/22/21 05:19 Hct 23.5 % (36.0-47.0) L 05/22/21 05:19 MCV 93.4 fL (80.0-100.0) 05/22/21 05:19 MCH 32.0 pg (27.0-34.0) 05/22/21 05:19 MCHC 34.3 g/dL (33.0-35.0) 05/22/21 05:19 RDW 14.8 % (11.6-16.5) 05/22/21 05:19 Plt Count 325 X10^3/uL (150.0-450.0) 05/22/21 05:19 MPV 7.4 fL (7.4-11.0) 05/22/21 05:19 Neut % (Auto) 69.8 % (42.0-75.0) 05/22/21 05:19 Lymph % (Auto) 20.0 % (21.0-51.0) L 05/22/21 05:19 [place] % (Auto) 9.1 % (0.0-13.0) 05/22/21 05:19 Eos % (Auto) 0.6 % (0.9-2.9) L 05/22/21 05:19 Baso % (Auto) 0.5 % (0.2-1.0) 05/22/21 05:19 Neut # (Auto) 4.8 x10^3/uL (2.2-4.8) 05/22/21 05:19 Lymph # (Auto) 1.4 X10^3/uL (1.3-2.9) 05/22/21 05:19 [place] # (Auto) 0.6 x10^3/uL (0.3-0.8) 05/22/21 05:19 Eos # (Auto) 0.0 x10^3/uL (0.0-0.2) 05/22/21 05:19 Baso # (Auto) 0.0 X10^3/uL (0.0-0.1) 05/22/21 05:19 Absolute Nucleated RBC 0.1 /100WBC 05/22/21 05:19 Sodium 140 mmol/L (136-145) 05/22/21 05:19 Corrected Sodium TNP 05/22/21 05:19 Potassium 3.8 mmol/L (3.5-5.1) 05/22/21 05:19 Chloride 107 mmol/L (98-107) 05/22/21 05:19 Carbon Dioxide 25.9 mmol/L (21-32) 05/22/21 05:19 BUN 18 mg/dL (7-18) 05/22/21 05:19 Creatinine 0.45 mg/dL (0.55-1.02) L 05/22/21 05:19 Est GFR (MDRD) Af Amer > 60 (>60) 05/22/21 05:19 Est GFR (MDRD) Non-Af > 60 (>60) 05/22/21 05:19 Glucose 89 mg/dL (65-99) 05/22/21 05:19 Calcium 8.8 mg/dL (8.5-10.1) 05/22/21 05:19 Corrected Calcium 10.6 mg/dL (8.5-10.1) H 05/22/21 05:19 Iron 15 ug/dL (50-175) L 05/20/21 15:27 Transferrin 118 mg/dL (202-364) L 05/20/21 15:27 Ferritin 404 ng/mL (8-252) H 05/20/21 15:27 Total Bilirubin 0.50 mg/dL (0.2-1.0) 05/22/21 05:19 AST 24 Units/L (15-37) 05/22/21 05:19 ALT 12 Units/L (12-78) 05/22/21 05:19 Alkaline Phosphatase 85 Units/L (46-116) 05/22/21 05:19 C-Reactive Protein 56.60 mg/L (0-3.0) H 05/22/21 05:19 Total Protein 4.9 g/dL (6.4-8.2) L 05/22/21 05:19 Albumin 1.8 g/dL (3.4-5.0) L 05/22/21 05:19 Globulin 3.1 g/dL (2.5-4.5) 05/22/21 05:19 Albumin/Globulin Ratio 0.6 Ratio (1.1-2.1) L 05/22/21 05:19 Vitamin B12 360 pg/mL (193-986) 05/20/21 15:27 Folate 9.1 ng/mL (>8.6) 05/20/21 15:27 Specimen Type Catherized urine 05/20/21 04:15 Urine Color Yellow (YELLOW) 05/20/21 04:15 Urine Appearance Clear (CLEAR) 05/20/21 04:15 Urine pH 6.0 (5.0 - 8.0) 05/20/21 04:15 Ur Specific [place] 1.020 (1.000-1.030) 05/20/21 04:15 Urine Protein 1+ (NEGATIVE) 05/20/21 04:15 Urine Glucose (UA) Negative (NEGATIVE) 05/20/21 04:15 Urine Ketones Negative (NEGATIVE) 05/20/21 04:15 Urine Blood Negative (NEGATIVE) 05/20/21 04:15 Urine Nitrite Negative (NEGATIVE) 05/20/21 04:15 Urine Bilirubin Negative (NEGATIVE) 05/20/21 04:15 Urine Urobilinogen Normal (NORMAL) 05/20/21 04:15 Ur Leukocyte Esterase 1+ (NEGATIVE) 05/20/21 04:15 Urine RBC None seen /HPF (0-3) 05/20/21 04:15 Urine WBC 0-2 /HPF (0-5) 05/20/21 04:15 Ur Squamous Epith Cells Rare /HPF (NEGATIVE) 05/20/21 04:15 Calcium Oxalate Crystal Few /HPF (NEGATIVE) 05/20/21 04:15 Urine Bacteria Negative /HPF (NEGATIVE) 05/20/21 04:15 Urine Yeast Numerous /HPF (NEGATIVE) 05/20/21 04:15 Ur Culture Indicated? Yes/culture set up 05/20/21 04:15 Hospital Course: Dr. Blue did an open reduction of left hip prosthesis that had come out of place. He called me afterwards wanting to notify admitted to the hospital for further monitoring. I did my son went and did so. We controlled her pain and watch her hemoglobin as he had dropped down over the next few days. We started her on ferrous gluconate and by the last day her hemoglobin had come up to 8.0. She had no significant problems during her hospital stay and [facility].
== END 2021-05-22 14:04 | disposition hospice, home (50) ==
LOC: SURG1 13:26 → MED/SURG 13:26
PROVIDERS: ADMIT Family Medicine; ATTEND Family Medicine
DX: R26.89 Other abnormalities of gait and mobility; Z66 Do not resuscitate; D64.89 Other specified anemias; E87.1 Hypo-osmolality and hyponatremia; B37.89 Other sites of candidiasis; F03.90 Unspecified dementia, unspecified severity, without behavioral disturbance, psychotic disturbance, mood disturbance, and anxiety; I10 Essential (primary) hypertension; S72.002A Fracture of unspecified part of neck of left femur, initial encounter for closed fracture; R79.89 Other specified abnormal findings of blood chemistry; S73.005A Unspecified dislocation of left hip, initial encounter; F41.8 Other specified anxiety disorders; M25.552 Pain in left hip; R79.82 Elevated C-reactive protein (CRP); X58.XXXA Exposure to other specified factors, initial encounter